=== PATIENT | female | born 2000 ===

== ENCOUNTER 2022-12-11 06:19 | Emergency (ER) | payer OTHER, SELFPAY ==
[2022-12-11 06:26] VITALS: BP 124/86; PULSE 84; RESP 20; TEMP 36.6; O2SAT 97; BMI 43.5
[2022-12-11 07:14] VITALS: BP 125/58; PULSE 68; RESP 16; TEMP 36.9; O2SAT 94
--- NOTE | 2022-12-11 07:47 | ED.GENADULT ---
[facility] - General Adult General Chief complaint: Allergic Reaction Stated complaint: allergic reaction, swollen extremity Time Seen by Provider: 12/11/22 07:17 Source: patient and family (Sister) Mode of arrival: ambulatory History of Present Illness [facility] narrative: 22-year-old female comes in after changing her [place] litter this morning and complains of weird sensation to her lips but denies any difficulty breathing, also points to her left pinky fingers stating that it feels bigger than usual and tingly. She denies it having seen any rash and did not take any Benadryl at home. Related Data Allergies Allergy/AdvReac Type Severity Reaction Status Date / Time No Known Allergies Allergy Verified 12/11/22 06:30 Review of Systems Review of Systems: Pertinent positives and negatives as stated in [facility] Past Medical History Source: nursing notes reviewed Social History Social History Advance Directives: No Physical Exam ED Vital Signs: Vital Signs - 24 hr 12/11/22 06:26 12/11/22 07:14 Temperature 97.8 F 98.5 F Pulse Rate 84 68 Respiratory Rate 20 16 Blood Pressure 124/86 125/58 L Pulse Oximetry 97 94 Oxygen Delivery Method Room Air Room Air BMI result Body Mass Index 43.5 VITAL SIGNS: Reviewed. GENERAL: Well developed, well nourished, in no acute distress. HEAD: Normocephalic/atraumatic EYES: PERRLA, EOMI EARS: Ext canals without abnormality, TMs non-bulging and non-erythematous NOSE: Nares patent bilateral OROPHARYNX: no oral lesions noted, posterior pharynx clear and non-erythematous without noted tonsillar enlargement/erythema/exudates, there is no posterior pharynx/tongue/lips/facial swelling noted NECK: Supple, no adenopathy LUNGS: Normal breath sounds, there is no wheeze/rhonchi/rales/tachypnea. SpO2<94> CARDIOVASCULAR: Regular rate and rhythm without noted murmurs ABDOMEN: Soft, non-tender, non-distended with bowel sounds. MUSCULOSKELETAL: No tenderness, deformities, or effusions noted on gross inspection. EXTREMITIES: No cyanosis, clubbing or edema; LEFT HAND: I see no discoloration of the pinky finger to suggest a Raynaud's or some other alternative etiology for patient's complaints, there is full range of motion, palpable radial/ulnar pulses, capillary refill less than 3 seconds with good strength SKIN: Inspection of the skin reveals no rashes NEUROLOGIC: Alert and oriented x 4. Strength and sensation to light touch were grossly intact x 4. Medications Administered Discontinued Medications Generic Name Dose Route Start Last Admin Trade Name Kayodeq PRN Reason Stop Dose Admin Diphenhydramine HCl 25 mg 12/11/22 07:46 12/11/22 08:14 Diphenhydramine Hcl 25 Mg Capsule PO 12/11/22 07:47 25 mg ONCE ONE Administration Medical Decision Making Medical Decision Making MDM Narrative: 22-year-old female without evidence to suggest radicular or neuropathic etiology and no initial evaluation demonstrates vascular etiology. I see no evidence of angioedema or anaphylaxis, however given patient's symptoms will provide 25 mg of Benadryl as I do think she may have had a mild contact reaction to the john litter and she was counseled to wear a mask in use gloves while changing her john litter. She is otherwise discharged home in stable condition. Differential Diagnosis Differential Diagnoses: The differential diagnosis associated with the presentation includes See the discussion above Lab Data MDM Lab Attestation statement: I reviewed the patient's lab results. See the discussion above Labs: Lab Results 12/11/22 Range/Units 07:49 Urine Color Yellow Urine Appearance Clear Urine pH 5.5 (5.0-9.0) Ur Specific [place] >= 1.030 H (1.005-1.025) Urine Protein Negative (Neg-Trace) mg/dL Urine Glucose (UA) Negative (Negative) mg/dL Urine Ketones Negative (Negative) mg/dL Urine Blood Negative (Negative) Urine Nitrite Negative (Negative) Ur Leukocyte Esterase Negative (Negative) Discharge Plan Discharge Clinical Impression: Contact dermatitis Patient Disposition: Home, Self-Care Instructions: Contact Dermatitis (ED) Additional Instructions: 1. I recommend that you use a mask and gloves when changing the cat litter. 2. Purchase [id number] generic Benadryl in case you have a similar reaction. If you have any difficulty breathing or notice obvious lip swelling/tongue swelling please do not hesitate to come into the emergency room. 3. Please follow-up with primary care provider by calling the office today and setting up an appointment for re-evaluation further outpatient management. Return to the ER for any worsening symptoms.
[2022-12-11 07:56] LABS: Appearance Urine Clear; Color Urine Yellow; Glucose Urine UA Negative (Negative); Leukocyte Esterase Urine Negative (Negative); Nitrite Urine Negative (Negative); PH 5.5 (5.0-9.0); Specific Gravity - Urine >= 1.030 (1.005-1.025); Urine Blood Negative (Negative); Urine Ketones Negative (Negative); Urine Protein Negative (Neg-Trace)
[2022-12-11] MEDS: diphenhydrAMINE HCL 25 MG CAPSULE PO (08:14)
== END 2022-12-11 08:30 | disposition home or self-care (01) ==
PROVIDERS: Emergency Provider Student in an Organized Health Care Education/Training Program
DX: L25.9 Unspecified contact dermatitis, unspecified cause (principal)
CPT/HCPCS: 81003; 99283

== ENCOUNTER 2023-01-20 11:15 | Emergency (ER) | payer OTHER, SELFPAY ==
--- NOTE | ~2023-01-20 | US_ITS ---
EXAMINATION: US VENOUS ULTRASOUND WITH DOPPLER LOWER EXTREMITY, RIGHT CLINICAL INFORMATION: Pain COMPARISON: None TECHNIQUE: Ultrasound of the deep veins is performed from the hip to the calf with compression sonography and color and pulse Doppler assessment. Spectral analysis with color-flow imaging is performed. FINDINGS: There is normal venous compression and respiratory variation and augmented flow. The visualized common femoral vein, superficial femoral vein, profunda femoral vein, popliteal vein, and the trifurcation region shows no evidence of deep venous thrombosis. There is no significant popliteal fossa cyst. If the patient's symptoms persist, followup ultrasound in 5 days 7 days might be of value to exclude proximal propagation from a non-visualized calf vein. US/US venous duplex LE RT IMPRESSION: No DVT demonstrated in the right lower extremity.
[2023-01-20 11:25] VITALS: BP 116/47; PULSE 102; RESP 18; TEMP 37.2; O2SAT 96; BMI 44.9
--- NOTE | 2023-01-20 11:25 | ED.ABDPAIN ---
HPI - Abdominal Pain General Chief Complaint: Abdominal Pain Stated Complaint: Abd pain rad to back Time Seen by Provider: 01/20/23 13:00 Source: patient Mode of arrival: ambulatory History of Present Illness HPI narrative: 22-year-old female with no significant past medical history presenting to the ED complaining of lower abdominal, low back, behind right knee pain x a few weeks. Reports recently started working out, unsure if related to symptoms. Denies known injury, trauma, fall, SOB/CP, fever/chills, nausea, vomiting, diarrhea, dysuria/hematuria, urinary incontinence/retention, vaginal bleeding/discharge. Denies recent travel, hx clots, OCPs, cigarettes smoking MD elicited complaint: abdominal pain Onset (ago): week(s) Related Data Allergies Allergy/AdvReac Type Severity Reaction Status Date / Time No Known Allergies Allergy Verified 12/11/22 06:30 Review of Systems Review of Systems Constitutional: No Fever, No Chills, No Fatigue, No Malaise ENT/Mouth: No Ear Pain, No Nasal Congestion, No sore throat, No Rhinorrhea, No Swallowing Difficulty Eyes: No Eye Pain, No Swelling, No Redness, No Vision Changes Cardiovascular: No Chest Pain, No SOB, No Edema, No Palpitations Respiratory: No Cough, No Sputum, No Dyspnea Gastrointestinal: No Nausea, No Vomiting, No Diarrhea, No Constipation, + Abdominal pain Genitourinary: No irregular bleeding, No Dysuria, No Urinary Frequency, No Hematuria, No Urinary Incontinence/retention, No Flank Pain Musculoskeletal: + joint pain, No Myalgias, No Joint Swelling Skin: No Skin Lesions, No rash Neuro: No Weakness, No Numbness, No Dizziness, No Headache Yes all other systems are reviewed and are negative Constitutional: Reports as per HPI [facility] Past Medical History Attestation statement: The following information was validated with the patient. Social History Social History Alcohol intake: never Smoked in Last 30 Days: No Use of substances other than those prescribed or required for medical reasons: No Advance Directives: No Advance Directives Information Provided: Yes Patient : No Physical Exam ED Vital Signs: Vital Signs - 24 hr 01/20/23 11:25 01/20/23 12:49 01/20/23 14:24 Temperature 99.0 F 98.7 F 98.9 F Pulse Rate 102 H 94 80 Respiratory Rate 18 18 18 Blood Pressure 116/47 L 120/71 119/70 Pulse Oximetry 96 96 98 Oxygen Delivery Method Room Air Room Air Room Air BMI result Body Mass Index 44.9 Const General: cooperative, healthy appearing and no acute distress Orientation/consciousness: patient oriented x3 Limitations: no limitations HENMT Head: Yes normal to inspection and Yes atraumatic Ears: hearing grossly normal bilaterally General nose exam: Normal external nose present Face and sinus: Yes normal facial exam Eyes General: appearance normal, both eyes and all related structures EOM: EOMs intact bilaterally Neck Neck: Yes normal visual inspection and Yes no meningeal signs Resp Effort & Inspection: normal respiratory effort and no respiratory distress Auscultation: clear to auscultation bilaterally Cardio Rate: regular rate Heart sounds: S1 normal heart sound present and S2 normal heart sound present GI Inspection: Yes normal to inspection Palpation (GI): Soft to palpation, nontender, no guarding and not rigid General: Yes no CVA tenderness Back/Spine/Pelvis Other: No midline thoracic/lumbar spinous tenderness/step-off or deformity Back: no CVA tenderness Skin Rashes: no rashes Wounds: no wounds Neuro General: patient oriented x3, tone normal and no meningeal signs Gait exam (Neuro): Normal gait present Extrem Other: No appreciable pedal edema. Mild tenderness behind right knee. No calf tenderness. NV intact distally. Hip ROM intact General: Yes normal to inspection Course Course Course Narrative: -1432--labs unremarkable. CPK 177. -UA not infected 1524--US venous duplex LE RT IMPRESSION: No DVT demonstrated in the right lower extremity. > on re-evaluation patient reports symptomatic improvement. Suspect muscle strain. Results discussed. Recommended close PCP follow-up Results discussed with patient including worrisome signs and symptoms and strict return precautions, and when to return to the emergency department. They verbalized understanding and feel safe for discharge at this time. Medical Decision Making Medical Decision Making MDM Narrative: 22-year-old female with no significant past medical history presenting to the ED complaining of lower abdominal, low back, behind right knee pain x a few weeks. On exam vital signs stable, NAD, nontoxic appearing, abdomen soft/nontender, no CVA tenderness, mild right posterior knee tenderness, no appreciable pedal edema/calf tenderness. Concern for abdominal strain vs MSK pain vs rhabdo vs ?DVT. Lower suspicion for renal stone/pyelo without tenderness on exam. Lower suspicion for ovarian torsion, TOA, cyst, appendicitis/diverticulitis or PE/ACS or fx Plan: Labs, UA, venous duplex ultrasound, re-evaluate Please refer to course for remaining clinical decision making, interpretation of labs/imaging results, and discussions with consultants and/or family members. Differential Diagnosis Differential Diagnoses: The differential diagnosis associated with the presentation includes as above Lab Data MDM Lab Attestation statement: I reviewed the patient's lab results. 01/20/23 11:54 01/20/23 11:54 Labs: Lab Results 01/20/23 01/20/23 01/20/23 Range/Units 11:54 11:54 11:54 WBC 10.1 (4.8-10.8) X10*3/uL RBC 4.73 (4.20-5.50) X10*6/uL Hgb 12.7 (12.0-16.0) g/dl Hct 39.6 (37.0-47.0) % MCV 83.7 (80.0-98.0) fL MCH 26.8 L (27.0-33.0) pg MCHC 32.1 (31.0-35.0) g/dl RDW 13.9 (11.0-16.0) % Plt Count 274 (160-400) X10*3/uL MPV 11.5 (9.4-12.3) fL Immature Gran % (Auto) 0.2 (0.0-0.4) % Neut % (Auto) 64.1 (45-73) % Lymph % (Auto) 27.9 (20-40) % [place] % (Auto) 5.9 (2-11) % Eos % (Auto) 1.6 (0-4) % Baso % (Auto) 0.3 (0-2) % Lymph # (Auto) 2.8 (1.2-4.9) X10*3/uL [place] # (Auto) 0.6 (0.1-1.2) X10*3/uL Eos # (Auto) 0.2 (0.0-0.4) X10*3/uL Baso # (Auto) 0.0 (0.0-0.2) X10*3/uL Abs Immat Gran (auto) 0.02 (0.00-0.03) X10*3/uL Absolute Neuts (auto) 6.5 (2.0-8.3) x10*3/uL Absolute Nucleated RBC 0.000 (0.0-0.012) X10*3/uL Nucleated RBC % (auto) 0.0 (0.0-0.2) /100WBC Sodium 141 (135-145) mmol/L Potassium 4.1 (3.3-5.1) mmol/L Chloride 108 (96-108) mmol/L Carbon Dioxide 26 (22-29) mmol/L Anion Gap 11 L (12-20) BUN 11 (9-16) mg/dL Creatinine 0.75 (0.5-1.4) mg/dL Estim Creat Clear Calc 157.3 Estimated GFR > 60 Random Glucose 103 (60-115) mg/dL Calcium 9.0 (8.4-10.2) mg/dL Magnesium 1.7 (1.6-2.6) mg/dL Total Bilirubin 0.2 (0.0-1.0) mg/dL Direct Bilirubin < 0.2 (0.0-0.5) mg/dL AST 15 (5-31) U/L ALT 14 (0-31) U/L Alkaline Phosphatase 76 (39-117) U/L Total Creatine Kinase 177 H (26-140) U/L Total Protein 6.4 L (6.5-8.0) g/dL Albumin 3.7 (3.5-5.0) g/dL Lipase 24 (8-78) U/L Urine Color Yellow Urine Appearance Clear Urine pH 6.0 (5.0-9.0) Ur Specific [place] 1.020 (1.005-1.025) Urine Protein Negative (Neg-Trace) mg/dL Urine Glucose (UA) Negative (Negative) mg/dL Urine Ketones Negative (Negative) mg/dL Urine Blood Negative (Negative) Urine Nitrite Negative (Negative) Ur Leukocyte Esterase Trace H (Negative) Urine RBC 0-2 (0-2) /HPF Urine WBC 0-5 (0-5) /HPF Ur Squamous Epith Cells 0-2 (0-2) /HPF Urine Bacteria None Seen (None Seen) Hyaline Casts 0-2 (0-2) /LPF Urine Test (NEGATIVE) 01/20/23 Range/Units 11:54 WBC (4.8-10.8) X10*3/uL RBC (4.20-5.50) X10*6/uL Hgb (12.0-16.0) g/dl Hct (37.0-47.0) % MCV (80.0-98.0) fL MCH (27.0-33.0) pg MCHC (31.0-35.0) g/dl RDW (11.0-16.0) % Plt Count (160-400) X10*3/uL MPV (9.4-12.3) fL Immature Gran % (Auto) (0.0-0.4) % Neut % (Auto) (45-73) % Lymph % (Auto) (20-40) % [place] % (Auto) (2-11) % Eos % (Auto) (0-4) % Baso % (Auto) (0-2) % Lymph # (Auto) (1.2-4.9) X10*3/uL [place] # (Auto) (0.1-1.2) X10*3/uL Eos # (Auto) (0.0-0.4) X10*3/uL Baso # (Auto) (0.0-0.2) X10*3/uL Abs Immat Gran (auto) (0.00-0.03) X10*3/uL Absolute Neuts (auto) (2.0-8.3) x10*3/uL Absolute Nucleated RBC (0.0-0.012) X10*3/uL Nucleated RBC % (auto) (0.0-0.2) /100WBC Sodium (135-145) mmol/L Potassium (3.3-5.1) mmol/L Chloride (96-108) mmol/L Carbon Dioxide (22-29) mmol/L Anion Gap (12-20) BUN (9-16) mg/dL Creatinine (0.5-1.4) mg/dL Estim Creat Clear Calc Estimated GFR Random Glucose (60-115) mg/dL Calcium (8.4-10.2) mg/dL Magnesium (1.6-2.6) mg/dL Total Bilirubin (0.0-1.0) mg/dL Direct Bilirubin (0.0-0.5) mg/dL AST (5-31) U/L ALT (0-31) U/L Alkaline Phosphatase (39-117) U/L Total Creatine Kinase (26-140) U/L Total Protein (6.5-8.0) g/dL Albumin (3.5-5.0) g/dL Lipase (8-78) U/L Urine Color Urine Appearance Urine pH (5.0-9.0) Ur Specific [place] (1.005-1.025) Urine Protein (Neg-Trace) mg/dL Urine Glucose (UA) (Negative) mg/dL Urine Ketones (Negative) mg/dL Urine Blood (Negative) Urine Nitrite (Negative) Ur Leukocyte Esterase (Negative) Urine RBC (0-2) /HPF Urine WBC (0-5) /HPF Ur Squamous Epith Cells (0-2) /HPF Urine Bacteria (None Seen) Hyaline Casts (0-2) /LPF Urine Test NEGATIVE (NEGATIVE) Radiology Impression Discussion of test interpretation with radiology: I have reviewed the radiologist's reading. Discharge Plan Discharge Clinical Impression: Abdominal pain, Posterior knee pain Patient Disposition: Home, Self-Care Instructions: Abdominal Pain (ED), Knee Pain (ED) Additional Instructions: you likely strained your abdominal/back muscles. Your blood work, urine, and ultrasound were reassuring Avoid heavy lifting. Take Tylenol and Motrin for pain/inflammation. Apply heat and ice Follow-up with her doctor If symptoms persist or worsen return to the emergency department Referrals: Physician,Yeni J [Primary Care Provider] -
[2023-01-20 11:59] LABS: MANUAL DIFF FLAG NO
[2023-01-20 12:09] LABS: Basophils Percent Auto 0.3 % (0-2); Eosinophils Absolute Auto 0.2 X10*3/uL (0.0-0.4); Eosinophils Percent Auto 1.6 % (0-4); Hematocrit 39.6 % (37.0-47.0); Hemoglobin 12.7 g/dl (12.0-16.0); Imm Gran Abs Auto 0.02 X10*3/uL (0.00-0.03); Imm Gran Pct Auto 0.2 % (0.0-0.4); Lymphocytes Absolute Auto 2.8 X10*3/uL (1.2-4.9); Lymphocytes Percent Auto 27.9 % (20-40); Mean Corpuscular HGB Conc 32.1 g/dl (31.0-35.0); Mean Corpuscular Hemoglobin 26.8 pg (27.0-33.0); Mean Corpuscular Volume 83.7 fL (80.0-98.0); Mean Platelet Volume 11.5 fL (9.4-12.3); Monocytes Absolute Auto 0.6 X10*3/uL (0.1-1.2); Monocytes Percent Auto 5.9 % (2-11); Neutrophils Absolute Auto 6.5 x10*3/uL (2.0-8.3); Neutrophils Percent Auto 64.1 % (45-73); Platelet Count 274 X10*3/uL (160-400); Red Blood Count 4.73 X10*6/uL (4.20-5.50); Red Cell Distribution Width 13.9 % (11.0-16.0); White Blood Count 10.1 X10*3/uL (4.8-10.8)
[2023-01-20 12:12] LABS: UPreg QC Valid YES; Urine Pregnancy NEGATIVE (NEGATIVE)
[2023-01-20 12:13] LABS: Appearance Urine Clear; Color Urine Yellow; Glucose Urine UA Negative (Negative); Leukocyte Esterase Urine Trace (Negative); Nitrite Urine Negative (Negative); UMIC TRIGGER UACC YES; Urine Blood Negative (Negative); Urine Ketones Negative (Negative); Urine Protein Negative (Neg-Trace)
[2023-01-20 12:16] LABS: Bacteria Urine None Seen (None Seen); Hyaline Casts Urine 0-2 /LPF (0-2); RBC Urine 0-2 /HPF (0-2); Squamous Epithelial Cell Urine 0-2 /HPF (0-2); WBC Urine 0-5 /HPF (0-5)
[2023-01-20 12:19] LABS: Alanine Aminotransferase 14 U/L (0-31); Albumin Level 3.7 g/dL (3.5-5.0); Alkaline Phosphatase 76 U/L (39-117); Anion Gap 11 (12-20); Aspartate Amino Transferase 15 U/L (5-31); Bilirubin Direct < 0.2 mg/dL (0.0-0.5); Bilirubin Total 0.2 mg/dL (0.0-1.0); Blood Urea Nitrogen 11 mg/dL (9-16); Carbon Dioxide 26 mmol/L (22-29); Chloride 108 mmol/L (96-108); Creatinine Clr Calc Pharmacy 157.3; Estimated Glomerular Filt Rate > 60; Glucose Random 103 mg/dL (60-115); Lipase 24 U/L (8-78); Magnesium 1.7 mg/dL (1.6-2.6); Potassium 4.1 mmol/L (3.3-5.1); Sodium 141 mmol/L (135-145); Total Protein 6.4 g/dL (6.5-8.0)
[2023-01-20 12:49] VITALS: BP 120/71; PULSE 94; RESP 18; TEMP 37.1; O2SAT 96
--- NOTE | 2023-01-20 13:50 | PC.NURSE ---
bedside ultrasound is being done.
[2023-01-20 14:24] VITALS: BP 119/70; PULSE 80; RESP 18; TEMP 37.2; O2SAT 98
== END 2023-01-20 15:50 | disposition home or self-care (01) ==
PROVIDERS: Physician Assistant; Emergency Provider Emergency Medicine
DX: R10.30 Lower abdominal pain, unspecified (principal); M79.661 Pain in right lower leg; E66.9 Obesity, unspecified; Z68.41 Body mass index [BMI] 40.0-44.9, adult
CPT/HCPCS: 36415; 80048; 80076; 81001; 81003; 81025; 82550; 83690; 83735; 85025; 93971; 99284

== ENCOUNTER → 2023-02-19 13:27 | Outpatient (BNVA) | payer OTHER, SELFPAY | PROVIDERS: Visit Provider Physician Assistant ==

== ENCOUNTER → 2023-03-13 15:43 | Outpatient (BNVA) | payer OTHER, SELFPAY | PROVIDERS: Visit Provider Physician Assistant Surgical | DX: F84.0 Autistic disorder (principal); E66.9 Obesity, unspecified; Z68.41 Body mass index [BMI] 40.0-44.9, adult; F41.9 Anxiety disorder, unspecified; F32.A Depression, unspecified | CPT/HCPCS: 99202 ==

== ENCOUNTER 2023-03-23 07:22 | Emergency (ER) | payer OTHER, SELFPAY ==
--- NOTE | 2023-03-23 07:32 | ED_ITS ---
HPI - URI/Sore Throat General Chief Complaint: Upper Respiratory Symptoms Stated Complaint: sore throat and back pain Time Seen by Provider: 03/23/23 07:30 Source: patient Mode of arrival: ambulatory Limitations: no limitations History of Present Illness HPI Narrative: 23 yo female with history of depression/anxiety, autism who presents to the ER for evaluation of a sore throat and body aches. She presents with her brother and mother who both have similar symptoms. She states her sore throat is worse with eating but she is able to eat and drink normally. She states she has some upset stomach but no abdominal pain, nausea, vomiting or diarrhea. No chest pain or trouble breathing. No fevers. MD elicited complaint: sore throat and other (back pain) Onset (ago): day(s) Consistency: progressively worsening Severity: moderate Description of mucous: clear Able to tolerate fluids by mouth: Yes Exacerbating factors: swallowing Relieving factors: nothing Context: sick contacts Associated symptoms: myalgias, headache, nasal congestion and sore throat Treatments prior to arrival: none Related Data Home Medications Medication Instructions Recorded Confirmed No Known Home Meds 02/19/23 03/13/23 Allergies Allergy/AdvReac Type Severity Reaction Status Date / Time No Known Allergies Allergy Verified 03/13/23 15:52 Review of Systems Review of Systems: Yes all other systems are reviewed and are negative [facility] Past Medical History Medical History Anxiety Depression Mental and behavioral problem Obesity Vaginal odor Surgical History Hx of oral surgery Family History Family History Father No problems noted. Mother No problems noted. Social History Social History Housing: Apartment Alcohol intake: never Patient Tobacco Use Status: Never used Tobacco e-Cigarette/Vaping Use: Never Used Advance Directives: No Advance Directives Information Provided: Yes Physical Exam Vital Signs: Vital Signs: Last Vital Signs Temp 97.9 F 03/23/23 08:03 Pulse 102 H 03/23/23 08:03 Resp 20 03/23/23 08:03 BP 143/68 H 03/23/23 08:03 Pulse Ox 96 03/23/23 08:03 O2 Del Method Room Air 03/23/23 08:03 BMI result Body Mass Index 37.8 Appearance: Alert. Oriented X3. No acute distress. Head: normocephalic, atraumatic. Eyes: Pupils equal, round and reactive to light. ENT: Pharynx normal. +tonsillomegaly with erythema, no exudates. uvula midline. handling secretions normally. Neck: Normal inspection. Neck supple. CVS: Normal heart rate and rhythm. Pulses normal. Respiratory: No respiratory distress. Breath sounds normal. Abdomen: Obese, Soft and nontender. +BS x4 Skin: Skin warm and dry. Normal skin color. Normal skin turgor. No rashes. Extremities: No lower extremity edema. No joint swelling. Neuro/psych: Oriented X 3. nonfocal. CN II-XII intact. Normal speech and cognition. Medical Decision Making Medical Decision Making [facility] Narrative: 23 yo female with history of autism, anxiety/depression who presents to the ER for evaluation of sore throat and body aches - family members with similar symptoms. Slightly tachycardic on arrival but no fevers, likely due to some pain. Strep and COVID swabs were sent. Patient is negative for strep throat and COVID. Her had similar symptoms last week. Clinical presentation most consistent with viral infection, no need for abx at this time. Discussed results, dx and management as well as return precautions. Stable for d/c home. Differential Diagnosis Differential Diagnoses: The differential diagnosis associated with the presentation includes strep, covid, flu, rsv, other viral syndrome, bronchitis, pneumonia, no evidence of peritonsillar abcsess or retropharyngeal abscess Lab Data [facility] Lab Attestation statement: I reviewed the patient's lab results. Labs: Lab Results 03/23/23 03/23/23 Range/Units 07:57 07:57 COVID-19 (SON[place]) Negative (Negative) COVID-19 Clin Com See Note S. pyogenes GrpA CANDICE Negative (Negative) Independent Historian Clinical information obtained from an independent historian. History obtained from or confirmed by: Parent External Record Review External record reviewed: Prior outpatient labs and Prior outpatient radiology Prescription Management I considered prescription management with: Pain Medication and Antibiotic Critical Care Time Critical Care Time Critical Care Time: No Discharge Plan Discharge Clinical Impression: Viral infection Patient Disposition: Home, Self-Care Instructions: Viral Syndrome (ED) Additional Instructions: You tested negative for COVID-19 and Strep throat. Your symptoms are most likely due to another viral illness. Treatment is rest and supportive care. Drink plenty of fluids. Take over the counter cold and flu medications as needed for your symptoms. Use warm salt water gargles 3 times per day to help your sore throat. Recommend over the counter Chloraseptic spray and Cepacol lozenges for sore throat. Follow up with your doctor as needed. If you develop new or worsening symptoms call 911 or come back to the ER for further evaluation. Prescriptions: No Action No Known Home Meds
[2023-03-23 08:03] VITALS: BP 143/68; PULSE 102; RESP 20; TEMP 36.6; O2SAT 96; BMI 37.8
[2023-03-23 08:35] LABS: COVID-19 Test Negative (Negative); IDNOW Serial# 9DB6401D
[2023-03-23 08:48] LABS: IDNOW Serial# 08D9AD1C
[2023-03-23 08:49] LABS: Strep A Nucleic Acid Negative (Negative)
== END 2023-03-23 09:15 | disposition home or self-care (01) ==
PROVIDERS: Physician Assistant; Emergency Provider Emergency Medicine
DX: B34.9 Viral infection, unspecified (principal); J02.9 Acute pharyngitis, unspecified; Z20.822 Contact with and (suspected) exposure to COVID-19
CPT/HCPCS: 87635; 87651; 99282; 99283

== ENCOUNTER 2023-04-16 09:04 | Outpatient (REF) | payer OTHER, SELFPAY ==
[2023-04-16 15:53] LABS: CT PCR NOT DETECTED (Not Detect.); NG PCR NOT DETECTED (Not Detect.)
[2023-04-17 11:40] LABS: BV Int Neg Control Negative (Negative); BV Int Pos Control Positive (Positive)
== END 2023-04-16 09:05 | disposition home or self-care (01) ==
LOC: HO.LNP 09:04
PROVIDERS: PCP Nurse Practitioner Family; Visit Provider Advanced Practice Midwife
DX: Z01.419 Encounter for gynecological examination (general) (routine) without abnormal findings (principal); E28.2 Polycystic ovarian syndrome; E66.01 Morbid (severe) obesity due to excess calories; F48.9 Nonpsychotic mental disorder, unspecified; F69 Unspecified disorder of adult personality and behavior; L68.0 Hirsutism; L70.9 Acne, unspecified; N92.6 Irregular menstruation, unspecified; N39.0 Urinary tract infection, site not specified
CPT/HCPCS: 0353U; 87480; 87510; 87660

== ENCOUNTER 2023-04-28 16:18 | Outpatient (REF) | payer OTHER, SELFPAY ==
--- NOTE | ~2023-04-28 | US_ITS ---
EXAMINATION: US PELVIS COMPLETE CLINICAL INFORMATION: Additional Notes/Special Instructions Patient was not able to allow a pelvic exam; history in symptoms consistent with PCOS : COMPARISON: None TECHNIQUE: Transabdominal and transvaginal imaging was performed. FINDINGS: The uterus is of normal size and echogenicity measuring 7.3 x 3.3 x 3.9 cm. A regular homogeneous endometrium is identified measuring 0.4 cm. No uterine mass. No transabdominal only views of the ovaries. The right measures 2.9 x 2.3 x 2.5 cm for a volume of 9.4 mL. The left measures 3.3 x 3.1 x 1.0 cm for a volume of 10.3 mL, and is mildly enlarged however this was obtained transabdominally. Ovaries are normal in echotexture and do not demonstrate greater than 20 follicles per ovary based on transabdominal views. There is trace simple physiologic volume pelvic free fluid. US/US pelvic and transvaginal IMPRESSION: Technically limited exam and ovaries were only identified transabdominally limiting assessment for polycystic ovarian syndrome. The left ovary measures mildly enlarged at 10.3 mL however given this was obtained on the transabdominal probe and not a high-frequency endovaginal probe this does not meet the strict criteria for size enlargement for polycystic ovarian syndrome. Repeat exam could be considered when patient is better able to tolerate an endovaginal exam.
== END 2023-04-28 16:19 | disposition home or self-care (01) ==
LOC: HO.US 16:18
PROVIDERS: PCP Nurse Practitioner Family; Visit Provider Advanced Practice Midwife
DX: Z00.00 Encounter for general adult medical examination without abnormal findings (principal); N92.6 Irregular menstruation, unspecified; L70.9 Acne, unspecified; L68.0 Hirsutism; E66.01 Morbid (severe) obesity due to excess calories; E28.2 Polycystic ovarian syndrome; F48.9 Nonpsychotic mental disorder, unspecified; F69 Unspecified disorder of adult personality and behavior
CPT/HCPCS: 76830; 76856

== ENCOUNTER 2023-05-18 11:42 | Emergency (ER) | payer OTHER, SELFPAY ==
--- NOTE | ~2023-05-18 | XR_ITS ---
EXAMINATION: XR ANKLE, LEFT CLINICAL INFORMATION: Fall, pain COMPARISON: None available. TECHNIQUE: 4 views of the left ankle. FINDINGS: There is a linear lucency at the plantar aspect of the proximal cuboid, as seen on one view. This may be related to overlapping densities, versus a subtle undisplaced fracture. The remainder of the bones and joint spaces appear unremarkable. Ankle mortise is maintained. Fifth metatarsal base is intact. Anterior calcaneal process is intact. XR/XR ankle LT min 3V IMPRESSION: Lucency in the plantar aspect of the proximal cuboid, only visualized on one view. This could be related to overlapping densities versus a subtle undisplaced fracture. Clinically correlate for focal symptoms. Follow-up/further imaging as clinically warranted. No additional acute fractures identified.
[2023-05-18 12:05] VITALS: BP 126/80; PULSE 85; O2SAT 98
[2023-05-18 12:32] VITALS: BP 109/63; PULSE 91; RESP 18; TEMP 36.8; O2SAT 97; BMI 42.3
--- NOTE | 2023-05-18 12:34 | ED.GENADULT ---
HPI - General Adult General Chief complaint: Extremity Injury, Lower Stated complaint: ANKLE PAIN INJURY STATUS POST FALL Time Seen by Provider: 05/18/23 13:15 Source: patient Mode of arrival: wheelchair Limitations: no limitations History of Present Illness HPI narrative: Patient is a 23 year old female with history of anxiety, depression presenting with left ankle pain after twisting it and falling while taking out the trash today. She states that her ankle twisted inwards and that she felt a crack when it happened. She denies headstrike or loss of consciousness from the fall. She reports that her pain is a 10/10 when she moves her ankle and a 4/10 at rest. She also reports that she has twisted her left ankle several times before. She denies additional symptoms at this time including fever, chills, chest pain, abdominal pain, nausea, vomiting, shortness of breath, numbness, tingling, headache. Related Data Previous Rx's Medication Instructions Recorded ketorolac 10 mg tablet 10 mg PO TID PRN pain 5 days #15 05/18/23 tabs Allergies Allergy/AdvReac Type Severity Reaction Status Date / Time No Known Allergies Allergy Verified 05/18/23 12:37 Review of Systems Review of Systems: Constitutional : No Weight loss, No Fever, No Chills, No Fatigue, No Malaise Cardiovascular : No Chest Pain, No SOB, No Dyspnea on Exertion, No Orthopnea, No Edema, No Palpitations Respiratory : No Cough, No Sputum, No Wheezing Gastrointestinal : No Nausea, No Vomiting, No Diarrhea, No Constipation, No abdominal Pain, No Hematochezia, No Melena Genitourinary : No Dysuria, No Urinary Frequency, No Hematuria, Musculoskeletal : + joint pain, + Myalgias, + Joint Swelling Skin : No Skin Lesions, No rash Neuro : No Weakness, No Numbness, No Dizziness, No Headache Psych : No Anxiety/Panic, No Depression All other systems reviewed and are negative Yes all other systems are reviewed and are negative [facility] Past Medical History Attestation statement: The following information was validated with the patient. Source: old records reviewed Medical History Anxiety Depression Mental and behavioral problem Obesity Vaginal odor Surgical History Hx of oral surgery Family History Family History Father No problems noted. Mother No problems noted. Social History Social History Housing: Apartment Alcohol intake: never Patient Tobacco Use Status: Never used Tobacco Smoked in Last 30 Days: No e-Cigarette/Vaping Use: Never Used Use of substances other than those prescribed or required for medical reasons: No Advance Directives: No Advance Directives Information Provided: No service: No Current occupational status: unemployed Current occupational exposures/hazards: No Cognitive needs: No Hearing needs: No Vision needs: Yes (glasses) Physical Exam ED Vital Signs: Vital Signs - 24 hr 05/18/23 12:32 Temperature 98.2 F Pulse Rate 91 Respiratory Rate 18 Blood Pressure 109/63 Pulse Oximetry 97 Oxygen Delivery Method Room Air BMI result Body Mass Index 42.3 vital signs stable Appearance: Alert.? Oriented X3.? No acute distress.? Head: Normocephalic, atraumatic, no step-offs or deformities Eyes: Pupils equal, round and reactive to light.? CVS: Normal heart rate and rhythm.? Pulses normal.? Respiratory: No respiratory distress.? Breath sounds normal.? Abdomen: Soft and nontender.? Skin: Skin warm and dry.? Normal skin color.? Normal skin turgor.? Extremities: Positive edema of left ankle with significant tenderness to palpation of left lateral malleolus. Full range of motion of left ankle, however uncomfortable. Pulses Dorsalis pedis, anterior tibialis, posterior tibialis 2+ and symmetric of lower extremities bilaterally. No lower extremity edema.? No calf ttp. 5/5 strength to bilateral upper and lower extremities. Sensation of left foot intact. Neuro: Oriented X 3.? No motor deficit.? No sensory deficit. CN 2-12 intact Course Course Course Narrative: RME- 23-year-old female presents for evaluation of left ankle pain after a fall while ?taking out the trash. ? Reports that she is unable to bear weight on the left side. Reevaluation(s) Reevaluation #1: XR of left ankle demonstrating Will give toradol for pain. Time: 13:41 Reevaluation #2: X-ray of ankle with lucency in the plantar aspect of the proximal cuboid, only visualized under one view, could relate to overlying densities versus subtle undisplaced fracture patient has tenderness to palpation is mostly on the lateral aspects a low suspicion for undisplaced fracture however place patient in an Aircast, give crutches, will have her follow up with the orthopedic team. No signs of neurovascular compromise or threatened limb. Educated on RICE discharge home on Toradol. Educated patient on diagnosis and treatment plan, answered all question, patient verbalizes understanding. At this time patient will be discharged home, advised to return with new or worsening symptoms. Educated on worrisome signs and symptoms and when to return. At this time I feel comfortable discharge home. Time: 14:48 Medications Administered Discontinued Medications Generic Name Dose Route Start Last Admin Trade Name Freq PRN Reason Stop Dose Admin Ketorolac Tromethamine 30 mg 05/18/23 13:20 05/18/23 13:28 Ketorolac Tromethamine 15 Mg/Ml Vial IM 05/18/23 13:21 30 mg ONCE ONE Administration Medical Decision Making Medical Decision Making [facility] Narrative: [id number] Patient is a 23 year old female presenting with left ankle pain after twisting it and falling today. Physical exam significant for edema of left ankle with significant tenderness to palpation of left lateral malleolus. Full range of motion of left ankle, however uncomfortable. Pulses 2+ and symmetric of lower extremities bilaterally. No lower extremity edema.? No calf ttp. 5/5 strength to bilateral upper and lower extremities. Sensation of left foot intact. Differential diagnosis includes most likely sprain/strain vs fracture. Unlikely osteomyelitis, acute infection. No signs of acute threat to foot or limb,or nerovascular compromise, neurovascular exam intact. Plan imaging Differential Diagnosis Differential Diagnoses: The differential diagnosis associated with the presentation includes Differential diagnosis includes most likely sprain/strain vs fracture. Unlikely osteomyelitis, acute infection. No signs of acute threat to foot or limb, or neurovascular compromise, neurovascular exam intact. Admission/Observation Consideration of admission/observation: Escalation of care including admission/observation considered unlikely Independent Interpretation I performed an independent interpretation of an: Plain X-Ray Radiology Impression Discussion of test interpretation with radiology: I have reviewed the radiologist's reading. Independent Historian Clinical information obtained from an independent historian. History obtained from or confirmed by: Parent External Record Review External record reviewed: Inpatient record, Office record, Outpatient record, Prior outpatient labs, Prior outpatient radiology, Primary care record and Outside ED record Core Measures AMI core measures followed: Yes Measure exclusions: not indicated Critical Care Time Critical Care Time Critical Care Time: Yes Total Critical Care Time: 35 Attestation: I attest to this time spent taking care of the patient, obtaining history, physical, reviewing labs, imaging, speaking to specialist. Discharge Plan Discharge Clinical Impression: Acute ankle pain Patient Disposition: Home, Self-Care Instructions: Ankle Sprain (DC), R.I.C.E. Treatment (ED) Additional Instructions: Take your medications as prescribed. If you were prescribed antibiotics today, it is important that you take your medication to their entirety, do not skip any doses, do not finish them early. Follow-up with your primary care provider this week. Follow-up with the orthopedic team in a week or so Return to the emergency department with new or worsening symptoms. In case of emergency call 911 Toradol has been sent to your pharmacy, you tolerated this well in the department. Please take this as prescribed do not take this with ibuprofen, or other NSAIDs, do not mix this with alcohol. Side effects of this medication including increased risk for bleeding and possible kidney injury. XR/XR ankle LT min 3V IMPRESSION: Lucency in the plantar aspect of the proximal cuboid, only visualized on one view. This could be related to overlapping densities versus a subtle undisplaced fracture. Clinically correlate for focal symptoms. Follow-up/further imaging as clinically warranted. ? No additional acute fractures identified. Prescriptions: New ketorolac 10 mg tablet 10 mg PO TID PRN (Reason: pain) 5 Days Qty: 15 0RF Referrals: [facility] [Provider Group] Stand Alone Forms: Work/School Release
[2023-05-18] MEDS: Ketorolac Tromethamine 15 MG/ML VIAL 30 MG IM (13:28)
== END 2023-05-18 15:48 | disposition home or self-care (01) ==
PROVIDERS: Emergency Provider Student in an Organized Health Care Education/Training Program; PCP Nurse Practitioner Family
DX: M25.572 Pain in left ankle and joints of left foot (principal)
CPT/HCPCS: 73610; 96372; 99284; J1885

== ENCOUNTER → 2023-05-28 14:06 | Outpatient (BNVA) | payer OTHER, SELFPAY | PROVIDERS: PCP Nurse Practitioner Family; Visit Provider Advanced Practice Midwife | DX: N92.6 Irregular menstruation, unspecified (principal); E28.2 Polycystic ovarian syndrome; L70.9 Acne, unspecified; L68.0 Hirsutism; E66.01 Morbid (severe) obesity due to excess calories; F84.0 Autistic disorder; F48.9 Nonpsychotic mental disorder, unspecified; F69 Unspecified disorder of adult personality and behavior; Z68.41 Body mass index [BMI] 40.0-44.9, adult | CPT/HCPCS: 99212 ==

== ENCOUNTER 2023-05-29 07:46 | Outpatient (REF) | payer OTHER, SELFPAY ==
[2023-05-29 09:27] LABS: Estimated Average Glucose 100 mg/dL; Hemoglobin A1c % 5.1 %
[2023-05-29 10:04] LABS: Alanine Aminotransferase 12 U/L (0-31); Albumin Level 3.8 g/dL (3.5-5.0); Alkaline Phosphatase 66 U/L (39-117); Anion Gap 13 (12-20); Aspartate Amino Transferase 11 U/L (5-31); Bilirubin Total 0.5 mg/dL (0.0-1.0); Blood Urea Nitrogen 10 mg/dL (9-16); Calcium 9.4 mg/dL (8.4-10.2); Carbon Dioxide 25 mmol/L (22-29); Chloride 107 mmol/L (96-108); Estimated Glomerular Filt Rate > 60; Glucose Fasting 92 mg/dL (60-99); Potassium 4.1 mmol/L (3.3-5.1); Sodium 141 mmol/L (135-145); Total Protein 7.2 g/dL (6.5-8.0)
[2023-05-29 10:10] LABS: Free T4 (Free Thyroxine) 1.02 ng/dL (0.71-1.85); Thyroid Stimulating Hormone 2.41 uIU/mL (0.32-4.0)
[2023-05-30 16:09] LABS: DHEA Sulfate 354 mcg/dL (14-349)
[2023-06-05 18:37] LABS: Testosterone, Free 9.7 pg/mL (0.1-6.4); Testosterone, Total 86 ng/dL (2-45)
== END 2023-05-29 07:47 | disposition home or self-care (01) ==
LOC: HO.LAB 07:46
PROVIDERS: PCP Nurse Practitioner Family; Visit Provider Advanced Practice Midwife
DX: E28.2 Polycystic ovarian syndrome (principal); E66.01 Morbid (severe) obesity due to excess calories; L68.0 Hirsutism; L70.9 Acne, unspecified; N92.6 Irregular menstruation, unspecified; N39.0 Urinary tract infection, site not specified
CPT/HCPCS: 36415; 80053; 82627; 83036; 84402; 84403; 84439; 84443; 87086

== ENCOUNTER 2023-08-11 11:25 | Outpatient (AMB) | payer OTHER, SELFPAY ==
--- NOTE | 2023-08-11 12:28 | MHC.OFFVIS ---
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 She says that she is starting to get her periods more regularly once a month. She has most of the same issues that have been discussed at the last couple of visits but she did not really want to discuss them in too much detail today except that she does wonder why she keeps getting P infections which is what she was told by the doctors in [place]. She says that sometimes it smells really bad. I reviewed past visits and how she was not able to fully tolerate pelvic exam and so Pap smear was not able to be done and also that full internal evaluation with the pelvic ultrasound was also not able to be completed though the patient perceived that they were able to get the Wand in and had it in for a little while. She has not had sex with anyone . She does feel good that she has lost some weight she appears to have lost about 5 lb since her 1st visit here. She has also gotten her hair cut. She is going to be seeing her primary care provider tomorrow and wants to talk about further mental health evaluations. I did discuss with her that normally evaluations for urinary tract infections which are what P infections are formally called take place in the arena of primary care and I recommend she discuss that more fully with her tomorrow however she has no particular symptoms that she could describe with me today. I did review with her basic anatomy with a plastic model and discussed how it is very easy for there to be urogenital contamination on a urinary specimen and that in order to find out if she really has an infection she would need to accomplish much exhibit cleaner specimen since she has no particular symptoms today that she could describe I am not ordering any but suggested that she follow through with her primary tomorrow. Also discussed how easy it can be to acquire a urinary tract infection friction or other manipulation of urethra. Discussed in particular this visit her symptoms of hirsutism, acne and the other labs that I had done to explore potential diagnosis of PCOS and that all of her hormone levels were elevated including the testosterone free testosterone and DHEA all pointing in the direction of this and consistent with her history. I congratulated her on her efforts to lose weight and get healthier. She was complaining of a be back ache while she was here and I suggest doing some stretches. [facility] Medical History Mental and behavioral problem Vaginal odor Obesity Anxiety Depression Surgical History Hx of oral surgery Family History Father No problems noted. Mother No problems noted. Social History Housing: Apartment Alcohol intake: never Patient Tobacco Use Status: Never used Tobacco e-Cigarette/Vaping Use: Never Used service: No Current occupational status: unemployed Current occupational exposures/hazards: No Cognitive needs: No Hearing needs: No Vision needs: Yes (glasses) Female Reproductive History Menstrual Age of Menarche: 10 Date of last menstrual period: 07/18/23 control method: none Physical Exam Vital Signs: Last Vital Signs BP 112/70 08/11/23 12:29 BMI result Body Mass Index 41.3 Results Reviewed Results Reviewed: Name: Meek Bowers Age/Sex: 23/F : 2000 Unit#: [id number] Attend Dr: Puja Laguerre CNM Re05/29/23 Status: DEP REF Location: .LAB Disch: SPEC : [id number] ROCKY: 05/29/23 STATUS: COMP REQ : [id number] RECD: 05/29/[address]: Puja Laguerre CNM COMP: 06/05/23-1837 ENTERED: 05/29/23-[address]: Sonya Morley ORDERED: DHEAS, Testost Fr & T Test Result Flag Reference Site DHEA-Sulfate 354 H 14-349 mcg/dL QUM THIS TEST WAS PERFORMED AT: [email or web address] [address] [place] [id number] TREVOR ACOSTA MD Testost, Tot 86 H 2-45 ng/dL QUM For additional information, please refer to http://education.[employer].io/faq/ [email or web address] (This link is being provided for informational/ educational purposes only.) This test was developed and its analytical performance characteristics have been determined by [employer] [place], [place]. It has not been cleared or approved by the U.S. Food and Drug Administration. This assay has been validated pursuant to the CLIA regulations and is used for clinical purposes. Testost, Free 9.7 H 0.1-6.4 pg/mL QUM This test was developed and its analytical performance characteristics have been determined by [employer] [place], [place]. It has not been cleared or approved by the U.S. Food and Drug Administration. This assay has been validated pursuant to the CLIA regulations and is used for clinical purposes. THIS TEST WAS PERFORMED AT: [facility] [address] CARY RICHARD MD,PHD [place] [address]Ultrasound Report Signed Patient: Meek BowersMR#: [id number]: 2000Acct:[id number]/Sex: 23 FADM Date: 04/28/23Loc: [place] Dr: Puja Laguerre CNM Ordering Physician: Puja Laguerre CNM Date of Service: 04/28/23 Procedure(s): US pelvic and transvaginal Accession Number(s): [id number] cc: Puja Laguerre CNM~ EXAMINATION: US PELVIS COMPLETE CLINICAL INFORMATION: Additional Notes/Special Instructions Patient was not able to allow a pelvic exam; history in symptoms consistent with PCOS : COMPARISON: None TECHNIQUE: Transabdominal and transvaginal imaging was performed. FINDINGS: The uterus is of normal size and echogenicity measuring 7.3 x 3.3 x 3.9 cm. A regular homogeneous endometrium is identified measuring 0.4 cm. No uterine mass. No transabdominal only views of the ovaries. The right measures 2.9 x 2.3 x 2.5 cm for a volume of 9.4 mL. The left measures 3.3 x 3.1 x 1.0 cm for a volume of 10.3 mL, and is mildly enlarged however this was obtained transabdominally. Ovaries are normal in echotexture and do not demonstrate greater than 20 follicles per ovary based on transabdominal views. There is trace simple physiologic volume pelvic free fluid. US/US pelvic and transvaginal IMPRESSION: Technically limited exam and ovaries were only identified transabdominally limiting assessment for polycystic ovarian syndrome. The left ovary measures mildly enlarged at 10.3 mL however given this was obtained on the transabdominal probe and not a high-frequency endovaginal probe this does not meet the strict criteria for size enlargement for polycystic ovarian syndrome. Repeat exam could be considered when patient is better able to tolerate an endovaginal exam. Dictated By:Lenora Nielson MDSigned By:<Electronically signed by Lenora Nielson MD in OV>04/30/23 1753 DD/ 1656TD/TT: Assessment & Plan Assessment & Plan (1) Irregular menstruation, unspecified: Code(s): N92.6 - Irregular menstruation, unspecified (2) Frequent UTI: Code(s): N39.0 - Urinary tract infection, site not specified (3) Acne: Code(s): L70.9 - Acne, unspecified (4) Hirsutism: Code(s): L68.0 - Hirsutism (5) Obesity, morbid, BMI 40.0-49.9: Code(s): E66.01 - Morbid (severe) obesity due to excess calories (6) PCOS (polycystic ovarian syndrome): Code(s): E28.2 - Polycystic ovarian syndrome Plan Patient is here to review lab results. She says that she is starting to get her periods more regularly once a month. She has most of the same issues that have been discussed at the last couple of visits but she did not really want to discuss them in too much detail today except that she does wonder why she keeps getting P infections which is what she was told by the doctors in [place]. She says that sometimes it smells really bad. I reviewed past visits and how she was not able to fully tolerate pelvic exam and so Pap smear was not able to be done and also that full internal evaluation with the pelvic ultrasound was also not able to be completed though the patient perceived that they were able to get the Wand in and had it in for a little while. She has not had sex with anyone . She does feel good that she has lost some weight she appears to have lost about 5 lb since her 1st visit here. She has also gotten her hair cut. She is going to be seeing her primary care provider tomorrow and wants to talk about further mental health evaluations. I did discuss with her that normally evaluations for urinary tract infections which are what P infections are formally called take place in the arena of primary care and I recommend she discuss that more fully with her tomorrow however she has no particular symptoms that she could describe with me today. I did review with her basic anatomy with a plastic model and discussed how it is very easy for there to be urogenital contamination on a urinary specimen and that in order to find out if she really has an infection she would need to accomplish much exhibit cleaner specimen since she has no particular symptoms today that she could describe I am not ordering any but suggested that she follow through with her primary tomorrow. Also discussed how easy it can be to acquire a urinary tract infection friction or other manipulation of urethra. Discussed in particular this visit her symptoms of hirsutism, acne and the other labs that I had done to explore potential diagnosis of PCOS and that all of her hormone levels were elevated including the testosterone free testosterone and DHEA all pointing in the direction of this and consistent with her history. I congratulated her on her efforts to lose weight and get healthier. She was complaining of a be back ache while she was here and I suggest doing some stretches. Next visit can be whenever she feels ready to allow full pelvic exam and try again for Pap smear which I also explained again to her. Coding Level of Care Code Est Pt Level 3 (69994) Diagnoses Irregular menstruation, unspecified N92.6 Frequent UTI N39.0 Acne L70.9 Hirsutism L68.0 Obesity, morbid, BMI 40.0-49.9 E66.01 PCOS (polycystic ovarian syndrome) E28.2 Time Spent (min) 30 Comment 100% [id number] discussing patient presentation and plan
[2023-08-11 12:29] VITALS: BP 112/70; BMI 41.3
== END 2023-08-11 13:02 | disposition home or self-care (01) ==
LOC: HO.HWS 11:25
PROVIDERS: PCP Nurse Practitioner Family; Visit Provider Advanced Practice Midwife
DX: N92.6 Irregular menstruation, unspecified (principal); N39.0 Urinary tract infection, site not specified; L70.9 Acne, unspecified; L68.0 Hirsutism; E66.01 Morbid (severe) obesity due to excess calories; E28.2 Polycystic ovarian syndrome
CPT/HCPCS: 99213

== ENCOUNTER → 2023-08-11 11:25 | Outpatient (BNVA) | payer OTHER, SELFPAY | PROVIDERS: PCP Nurse Practitioner Family; Visit Provider Advanced Practice Midwife | DX: N92.6 Irregular menstruation, unspecified (principal); N39.0 Urinary tract infection, site not specified; L70.9 Acne, unspecified; L68.0 Hirsutism; E66.01 Morbid (severe) obesity due to excess calories; Z68.41 Body mass index [BMI] 40.0-44.9, adult; E28.2 Polycystic ovarian syndrome | CPT/HCPCS: 99212 ==

== ENCOUNTER 2023-08-12 08:40 | Outpatient (AMB) | payer OTHER, SELFPAY ==
[2023-08-12 08:44] VITALS: BP 118/62; PULSE 80; O2SAT 96; BMI 41.5
--- NOTE | 2023-08-12 08:44 | A.OFFPC_ITS ---
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 Patient presents today for growing mole on face and weight loss. Mole on left side of face by hair line skin color, patient reports increasing in size so much so that her father has noticed it growing, referral entered to [place] [facility] for further evaluation and possible removal. Patient reports that she has been exercising regularly and is 262 and decreased to 257 but states she feels like she is not loosing the weight as quickly as she would like to. Patient provided positive reinforcement and encouraged to continue following healthy lifestyle modifications and exercising to reduce BMI. Patient also advised to follow-up with weight management program for further recommendations. Patient states insomnia x2 months. patient states goes to bed 7pm and 8pm and wont fall asleep 12pm-3am Patient also requesting she has be sent for cognitive evaluation for hx of ADHD and autism, will refer her for an neuropsych evaluation. [facility] Medical History Mental and behavioral problem Vaginal odor Obesity Anxiety Depression Surgical History Hx of oral surgery Family History Father No problems noted. Mother No problems noted. Social History Housing: Apartment Alcohol intake: never Patient Tobacco Use Status: Never used Tobacco e-Cigarette/Vaping Use: Never Used service: No Current occupational status: unemployed Current occupational exposures/hazards: No Cognitive needs: No Hearing needs: No Vision needs: Yes (glasses) Female Reproductive History Menstrual Age of Menarche: 10 Questionnaire PHQ-9 Over the last 2 weeks, how often have you been bothered by any of the following problems? 1. Little interest or pleasure in doing things: more than half the days 2. Feeling down, depressed, or hopeless: more than half the days 3. Trouble falling or staying asleep, or sleeping too much: nearly every day 4. Feeling tired or having little energy: nearly every day 5. Poor appetite or overeating: nearly every day 6. Feeling bad about yourself - or that you are a failure or have let yourself or your family down: nearly every day 7. Trouble concentrating on things, such as reading the newspaper or watching television: nearly every day 8. Moving or speaking so slowly that other people could have noticed. Or the opposite - being so fidgety or restless that you have been moving around a lot more than usual: more than half the days 9. Thoughts that you would be better off or of hurting yourself in some way: not at all Total score: 21 Depression Screening Interpretation: Positive 17547 - PHQ-9 Billing: Yes Source: Developed by Drs. Bernardino Angeles, Naty Augustin, Jarvis Verduzco and colleagues, with an educational susan from [employer]. Thrive Questionnaire Date Thrive assessed: 04/23/23 AUDIT C Alcohol Use Questionnaire (AUDIT-C) 1. How often do you have a drink containing alcohol?: Never 3. How often do you have six or more drinks on one occasion?: Never Total Score: 0 RAYMUNDO-7 AMB Questionnaire RAYMUNDO-7 Date RAYMUNDO - 7 assessed: 04/23/23 Source: Developed by Drs. Bernardino Angeles, Jarvis Aldridge and colleagues, with an educational susan from [employer]. Review of Systems Const Denies chills, Denies fatigue, Denies fever(s) and Denies poor appetite Eyes Denies no additional complaints ENT Reports Normal hearing present Card Denies chest pain, Denies syncope, Denies rapid heart rate and Denies dyspnea Resp Denies cough and Denies dyspnea GI Denies change in stool character, Denies constipation, Denies diarrhea, Denies nausea and Denies vomiting Denies urinary frequency, Denies dysuria and Denies urinary urgency Neuro Reports Normal hearing present, Denies confusion and Denies syncope Psych Denies confusion Endo Denies fatigue Physical exam (Primary Care) Vital Signs: Last Vital Signs Pulse 80 08/12/23 08:44 BP 118/62 08/12/23 08:44 Pulse Ox 96 08/12/23 08:44 Oxygen Delivery Method Room Air 08/12/23 08:44 BMI result Body Mass Index 41.5 Tobacco/Smoking Status: Tobacco use Status Tobacco use date assessed 04/23/23 08/12/23 08:45 Patient Tobacco Use Status Never used Tobacco 08/12/23 08:45 e-Cigarette/Vaping Use Never Used 08/12/23 08:45 PHQ-9: PHQ-9 Score PHQ-9: Total score 21 08/12/23 09:35 Depression Screening Interpretation: Positive Thrive Assessment: Date of Thrive Assessment Date Thrive assessed 04/23/23 08/12/23 08:45 Const General: No confusion Orientation/consciousness: No confusion HENMT Head: Yes normocephalic and Yes atraumatic Head images: 2 1. atypical raised skin tag Eyes Conjunctivae: conjunctivae normal Chest Chest palpation & inspection: normal inspection of the chest Resp Effort & Inspection: normal respiratory effort Auscultation: clear to auscultation bilaterally, no crackles, no rhonchi and no wheezes Cardio Rate: regular rate Rhythm: regular rhythm Heart sounds: S1 normal heart sound present and S2 normal heart sound present GI Inspection: Yes normal to inspection Neuro General: No confusion Cranial nerves: Yes Normal hearing present Extrem General: No edema Assessment and Plan Assessment & Plan (1) Atypical nevi: Code(s): D22.9 - Melanocytic nevi, unspecified Plan: Referred to [place] [facility] for further evaluation and possible removal. (2) Insomnia: Code(s): G47.00 - Insomnia, unspecified Plan: Patient advised to try 5 mg melatonin nightly before bed and follow-up consistent sleep routine and good sleep hygiene such as a to bed at the same time every day, avoiding electronics such STDs, folds prior to sleep. Can read a book. (3) Obesity: Code(s): E66.9 - Obesity, unspecified Plan: Patient advised to continue follow healthy diet and exercise to reduce BMI. Follow-up with weight management. (4) Anxiety: Code(s): F41.9 - Anxiety disorder, unspecified Plan: Continue to follow with therapist. (5) Depression: Code(s): F32.A - Depression, unspecified (6) Mental and behavioral problem: Code(s): F48.9 - Nonpsychotic mental disorder, unspecified; F69 - Unspecified disorder of adult personality and behavior Plan: Patient requesting referral for cognitive evaluation. Neuropsych entered back in January will follow-up on this referral. (7) Autism: Code(s): F84.0 - Autistic disorder (8) Low back pain: Code(s): M54.50 - Low back pain, unspecified Orders: Orders 2 PT Evaluation and Treatment Today M54.50 - Low back pain, unspecified Referrals 2 Dermatology Referral D22.9 - Melanocytic nevi, unspecified Medications: New 2 melatonin 5 mg PO BEDTIME PRN 30 tabs 0RF sleep G47.00 - Insomnia, unspecified Coding Level of Care Code Est Pt Level 4 (03753) Diagnoses Atypical nevi D22.9 Insomnia G47.00 Obesity E66.9 Anxiety F41.9 Depression F32.A Mental and behavioral problem F48.9; F69 Autism F84.0 Low back pain M54.50
== END 2023-08-12 09:08 | disposition home or self-care (01) ==
PROVIDERS: PCP Nurse Practitioner Family; Visit Provider Nurse Practitioner Family
DX: G47.00 Insomnia, unspecified (principal); F84.0 Autistic disorder; E66.9 Obesity, unspecified; Z68.41 Body mass index [BMI] 40.0-44.9, adult; F41.9 Anxiety disorder, unspecified; D22.9 Melanocytic nevi, unspecified; F32.A Depression, unspecified; M54.50 Low back pain, unspecified; F48.9 Nonpsychotic mental disorder, unspecified; F69 Unspecified disorder of adult personality and behavior
CPT/HCPCS: 99214

== ENCOUNTER 2023-08-13 08:46 | Emergency (ER) | payer OTHER, SELFPAY ==
[2023-08-13 08:56] VITALS: BP 118/74; PULSE 93; RESP 18; TEMP 36.6; O2SAT 99; BMI 41.2
--- NOTE | 2023-08-13 09:25 | ED_ITS ---
HPI - Back Pain/Injury General Chief Complaint: Back Pain/Injury Stated Complaint: back pain Time Seen by Provider: 08/13/23 09:22 Source: patient, RN notes reviewed and old records reviewed Mode of arrival: ambulatory History of Present Illness HPI Narrative: 23-year-old female with a past medical history PCOS, anxiety, depression, obesity, presenting to the ED complaining of bilateral low back pain radiating around sides x 4 days. took Motrin/OTC medications with brief relief. Denies known injury/trauma or fall, numbness/tingling, weakness, incontinence/retention, hematuria/dysuria, vaginal symptoms MD elicited complaint: back pain Related Data Previous Rx's Medication Instructions Recorded melatonin 5 mg tablet 5 mg PO BEDTIME PRN sleep #30 tabs 08/12/23 acetaminophen 500 mg tablet 500 mg PO Q6H PRN fever or pain 08/13/23 (Tylenol Extra Strength) #14 tabs cyclobenzaprine 5 mg tablet 5 mg PO Q8H PRN pain (scale score 08/13/23 7-10) 5 days #14 tabs lidocaine 5 % topical patch 1 patch topical DAILY PRN pain #30 08/13/23 (Lidoderm) ea naproxen 500 mg tablet 500 mg PO BID PRN pain 10 days #20 08/13/23 tabs Allergies Allergy/AdvReac Type Severity Reaction Status Date / Time No Known Allergies Allergy Verified 08/13/23 08:56 Review of Systems Review of Systems: Constitutional: No Fever, No Chills ENT/Mouth: No Ear Pain, No Nasal Congestion, No sore throat, No Rhinorrhea, No Swallowing Difficulty Cardiovascular: No Chest Pain, No SOB Respiratory: No Cough, No Sputum, No Wheezing Gastrointestinal: No Nausea, No Vomiting, No Diarrhea, No Abdominal pain Genitourinary: No Dysuria, No Urinary Frequency, No Hematuria, No Urinary Incontinence/retention, No Flank Pain Musculoskeletal: + joint pain, No Myalgias, No Joint Swelling Skin: No Skin Lesions, No rash Neuro: No Weakness, No Numbness, No Paresthesias Yes all other systems are reviewed and are negative Constitutional: Constitutional: Reports as per HPI Neurologic: Denies Sensory deficit (Neuro) [facility] Past Medical History Attestation statement: The following information was validated with the patient. Source: old records reviewed Medical History Mental and behavioral problem Vaginal odor Obesity Anxiety Depression Surgical History Hx of oral surgery Family History Family History Father No problems noted. Mother No problems noted. Social History Social History Housing: Apartment Alcohol intake: never Patient Tobacco Use Status: Never used Tobacco e-Cigarette/Vaping Use: Never Used Advance Directives: No service: No Current occupational status: unemployed Current occupational exposures/hazards: No Cognitive needs: No Hearing needs: No Vision needs: Yes (glasses) Physical Exam Vital Signs: Vital Signs: Last Vital Signs Temp 98 F 08/13/23 08:56 Pulse 93 08/13/23 08:56 Resp 18 08/13/23 08:56 BP 118/74 08/13/23 08:56 Pulse Ox 99 08/13/23 08:56 O2 Del Method Room Air 08/13/23 08:56 BMI result Body Mass Index 41.2 Const: General: cooperative, healthy appearing and no acute distress Orientation/consciousness: patient oriented x3 Limitations: no limitations HEENT: Head: Yes normal to inspection and Yes atraumatic Ears: hearing grossly normal bilaterally General nose exam: Normal external nose present Face and sinus: Yes normal facial exam Eyes: General: appearance normal, both eyes and all related structures EOM: EOMs intact bilaterally Neck: Neck: Yes normal visual inspection and Yes no meningeal signs Resp: Effort & Inspection: normal respiratory effort and no respiratory distress Auscultation: clear to auscultation bilaterally Cardio: Rate: regular rate Heart sounds: S1 normal heart sound present and S2 normal heart sound present GI: Inspection: Yes normal to inspection Palpation (GI): Soft to palpation, nontender, no guarding and not rigid : General: Yes no CVA tenderness Back/Spine/Pelvis: Other: No midline cervical/thoracic/lumbar spinous tenderness/step-off or deformity. P ain not reproducible Back: no CVA tenderness Skin: Rashes: no rashes Wounds: no wounds Neuro: Other: Strength intact throughout. No saddle anesthesia. Sensation intact to light touch. Neurovascular intact distally General: patient oriented x3, gait normal, tone normal, moves all extremities, no meningeal signs and no focal motor deficits Cranial nerves: Yes CN's II-XII intact bilaterally Gait exam (Neuro): Normal gait present Motor exam (neuro): 5/5 motor strength present throughout Sensory Exam: No Sensory deficit (Neuro) Extrem: General: Yes normal to inspection Course Course Course Narrative: -1012-UA not infected. negative Results discussed with patient including worrisome signs and symptoms and strict return precautions, and when to return to the emergency department. They verbalized understanding and feel safe for discharge at this time. Medications Administered Discontinued Medications Generic Name Dose Route Start Last Admin Trade Name Freq PRN Reason Stop Dose Admin Ketorolac Tromethamine 30 mg 08/13/23 09:41 08/13/23 09:52 Ketorolac Tromethamine 30 Mg/Ml Vial IM 08/13/23 09:42 30 mg ONCE ONE Administration Lidocaine 1 patch 08/13/23 09:41 08/13/23 09:52 Lidocaine 4 % Patch Adh..Patch TRANSDERMA 08/13/23 09:42 1 patch ONCE ONE Administration Protocol Medical Decision Making Medical Decision Making [facility] Narrative: 23-year-old female with a past medical history PCOS, anxiety, depression, obesity, presenting to the ED complaining of bilateral low back pain radiating around sides x 4 days. On exam vital signs stable, NAD, nontoxic appearing, physical exam as above, no midline spinous tenderness throughout red flag symptoms, imaging with steady gait, abdomen soft/nontender. Concern for MSK pain/strain/spasm pain. Low suspicion for pyelo, UTI, ovarian pathology, appendicitis/diverticulitis, cauda equina/cord compression Plan: UA, pain management Please refer to course for remaining clinical decision making, interpretation of labs/imaging results, and discussions with consultants and/or family members. Differential Diagnosis Differential Diagnoses: The differential diagnosis associated with the presentation includes As above Lab Data [facility] Lab Attestation statement: I reviewed the patient's lab results. Labs: Lab Results 08/13/23 Range/Units 09:55 Urine Color Yellow Urine Appearance Clear Urine pH 5.5 (5.0-9.0) Ur Specific [place] >= 1.030 H (1.005-1.025) Urine Protein Negative (Neg-Trace) mg/dL Urine Glucose (UA) Negative (Negative) mg/dL Urine Ketones Negative (Negative) mg/dL Urine Blood Negative (Negative) Urine Nitrite Negative (Negative) Ur Leukocyte Esterase Trace H (Negative) Urine RBC 0-2 (0-2) /HPF Urine WBC 0-5 (0-5) /HPF Ur Squamous Epith Cells 0-2 (0-2) /HPF Urine Bacteria None Seen (None Seen) Hyaline Casts 0-2 (0-2) /LPF Urine Test NEGATIVE (NEGATIVE) External Record Review External record reviewed: Inpatient record, Office record, Outpatient record, Prior outpatient labs, Prior outpatient radiology, Primary care record and Outside ED record Tests considered The following testing was considered but not selected: As above Prescription Management I considered prescription management with: Pain Medication Discharge Plan Discharge Clinical Impression: Low back pain Patient Disposition: Home, Self-Care Instructions: Acute Low Back Pain (ED) Additional Instructions: Your pain is likely musculoskeletal Flexeril is a muscle relaxer, take at night as it makes you drowsy, do not drive, drink alcohol, or operate machinery while taking it Naproxen as an anti-inflammatory / pain medication, take with food Lidoderm patches are numbing patches, apply to painful area In addition take Tylenol at home If symptoms persist or worsen, pain becomes unbearable, you developed urinary retention or incontinence, or weakness return to the ED Prescriptions: New acetaminophen [Tylenol Extra Strength] 500 mg tablet 500 mg PO Q6H PRN (Reason: fever or pain) Qty: 14 0RF lidocaine [Lidoderm] 5 % adhesive patch,medicated 1 patch topical DAILY MDD remove after 12 hours PRN (Reason: pain) Qty: 30 0RF Rx Instructions: leave on most painful area for up to 12 hrs naproxen 500 mg tablet 500 mg PO BID PRN (Reason: pain) 10 Days Qty: 20 0RF cyclobenzaprine 5 mg tablet 5 mg PO Q8H PRN (Reason: pain (scale score 7-10)) 5 Days Qty: 14 0RF No Action melatonin 5 mg tablet 5 mg PO BEDTIME PRN (Reason: sleep) Qty: 30 0RF Referrals: Sonya Morley FNP [Primary Care Provider] - 5 days Interventions: ED Discharge Assessment Last Done: 08/13/23 10:21 Discharge Date/Time: 08/13/23 10:21
[2023-08-13] MEDS: Ketorolac Tromethamine 30 MG/ML VIAL IM (09:52)
[2023-08-13] MEDS: Lidocaine 4 % Patch ADH..PATCH 1 PATCH TRANSDERMA (09:52)
[2023-08-13 10:05] LABS: Appearance Urine Clear; Color Urine Yellow; Glucose Urine UA Negative (Negative); Leukocyte Esterase Urine Trace (Negative); Nitrite Urine Negative (Negative); PH 5.5 (5.0-9.0); Specific Gravity - Urine >= 1.030 (1.005-1.025); UMIC TRIGGER UACC YES; Urine Blood Negative (Negative); Urine Ketones Negative (Negative); Urine Protein Negative (Neg-Trace)
[2023-08-13 10:07] LABS: UPreg QC Valid YES; Urine Pregnancy NEGATIVE (NEGATIVE)
[2023-08-13 10:10] LABS: Bacteria Urine None Seen (None Seen); Hyaline Casts Urine 0-2 /LPF (0-2); RBC Urine 0-2 /HPF (0-2); Squamous Epithelial Cell Urine 0-2 /HPF (0-2); WBC Urine 0-5 /HPF (0-5)
== END 2023-08-13 10:21 | disposition home or self-care (01) ==
PROVIDERS: Physician Assistant; Emergency Provider Emergency Medicine; PCP Nurse Practitioner Family
DX: M54.50 Low back pain, unspecified (principal); E66.9 Obesity, unspecified; Z68.41 Body mass index [BMI] 40.0-44.9, adult; Z79.899 Other long term (current) drug therapy
CPT/HCPCS: 81001; 81025; 90471; 96372; 99283; 99284; J1885

== ENCOUNTER 2023-08-21 09:09 | Emergency (ER) | payer OTHER, SELFPAY ==
[2023-08-21 09:11] VITALS: BP 145/87; PULSE 95; RESP 18; O2SAT 99; BMI 42.0
--- NOTE | 2023-08-21 10:42 | ED.GENADULT ---
HPI - General Adult General Chief complaint: Back Pain/Injury Stated complaint: Back Pain Radiating to Abdomen Area No Injury Time Seen by Provider: 08/21/23 10:39 Source: patient Mode of arrival: ambulatory Limitations: no limitations History of Present Illness HPI narrative: Patient is a 23-year-old female with history of PCOS, anxiety, depression, obesity presenting to the emergency department with low back pain radiating to lower abdomen. Patient was seen in this emergency department for similar complaint on 08/13 and prescribed lidocaine patches, cyclobenzaprine, naproxen and acetaminophen. Patient reports that yesterday she forgot to take her pain medications and her pain increased. States the pain improved after taking the medication last night and this morning. Denies any falls or other recent trauma. States last menstrual period was approximately 1 month ago. Denies fevers. Denies any dysuria, urinary frequency or other urinary symptoms. Denies nausea or vomiting, denies constipation. Reports 1 episode of diarrhea last night, none since. States has been eating and drinking normally. Denies any saddle anesthesia or bowel or bladder incontinence. Denies any abnormal vaginal discharge. Denies any concern for STIs. MD complaint: Back pain Onset (ago): day(s) Location: back Radiation: abdomen Severity scale (1-10): 4 Quality: aching Pain Consistency: intermittent Relieving factors: medication Associated symptoms: other (1 episode of diarrhea last night, none since) Treatments prior to arrival: NSAID and other Related Data Previous Rx's Medication Instructions Recorded melatonin 5 mg tablet 5 mg PO BEDTIME PRN sleep #30 tabs 08/12/23 acetaminophen 500 mg tablet 500 mg PO Q6H PRN fever or pain 08/13/23 (Tylenol Extra Strength) #14 tabs cyclobenzaprine 5 mg tablet 5 mg PO Q8H PRN pain (scale score 08/13/23 7-10) 5 days #14 tabs lidocaine 5 % topical patch 1 patch topical DAILY PRN pain #30 08/13/23 (Lidoderm) ea naproxen 500 mg tablet 500 mg PO BID PRN pain 10 days #20 08/13/23 tabs Allergies Allergy/AdvReac Type Severity Reaction Status Date / Time No Known Allergies Allergy Verified 08/13/23 08:56 Review of Systems Review of Systems: As per HPI. Yes all other systems are reviewed and are negative Constitutional: Constitutional: Reports as per HPI PMFSH Past Medical History Medical History Mental and behavioral problem Vaginal odor Obesity Anxiety Depression Surgical History Hx of oral surgery Family History Family History Father No problems noted. Mother No problems noted. Social History Social History Housing: Apartment Alcohol intake: never Patient Tobacco Use Status: Never used Tobacco e-Cigarette/Vaping Use: Never Used Advance Directives: No Advance Directives Information Provided: Yes service: No Current occupational status: unemployed Current occupational exposures/hazards: No Cognitive needs: No Hearing needs: No Vision needs: Yes (glasses) Physical Exam ED Vital Signs: Vital Signs - 24 hr 08/21/23 09:11 Pulse Rate 95 Respiratory Rate 18 Blood Pressure 145/87 H Pulse Oximetry 99 Oxygen Delivery Method Room Air BMI result Body Mass Index 42.0 Vital signs have been reviewed and appear to be correct. Blood pressure normal. Heart rate normal. Respiratory rate normal. Temperature normal. Oxygen saturation normal. Const General: cooperative, healthy appearing and no acute distress Orientation/consciousness: oriented to person, oriented to place, oriented to time and patient oriented x3 Limitations: no limitations HENMT Head: Yes normocephalic and Yes atraumatic Ears: external ears normal General nose exam: Normal external nose present Face and sinus: Yes face symmetric Mouth: oropharynx normal and moist mucous membranes Throat: Yes uvula midline Eyes Pupils: Equal, round and reactive pupils present Neck Neck: Yes normal visual inspection and Yes supple Resp Effort & Inspection: normal respiratory effort and able to speak in complete sentences Auscultation: clear to auscultation bilaterally Cardio Rate: regular rate Rhythm: regular rhythm Heart sounds: S1 normal heart sound present and S2 normal heart sound present GI Palpation (GI): Soft to palpation and nontender Auscultation: normoactive bowel sounds General: Yes no CVA tenderness Back/Spine/Pelvis Back: no CVA tenderness Thoracic/Lumbar Spine: thoracic and lumbar spine normal to inspection, thoraco-lumbar ROM normal, straight leg raise negative bilaterally, No thoracic spinal tenderness and No lumbar spinal tenderness Pelvis: no pain with anterior-posterior compression and no pain with lateral compression Sacroiliac joints: bilaterally nontender Skin General skin exam: elasticity normal and turgor normal Neuro General: oriented to person, oriented to place, oriented to time, patient oriented x3, gait normal, tone normal, moves all extremities, Normal light touch and pain sensation, no focal motor deficits, CN's II-XI intact bilaterally and deep tendon reflexes 2+ bilaterally Cranial nerves: Yes Equal, round and reactive pupils present Cognition (Neuro): normal cognition Motor exam (neuro): 5/5 motor strength present throughout Extrem General: Yes full ROM, Yes no pedal edema and Yes no calf tenderness Psych Mental Status: mental status grossly normal Affect: normal affect Thought process: Normal thought process present Medical Decision Making Medical Decision Making [facility] Narrative: Patient is a 23-year-old female with history of PCOS, anxiety, depression, obesity presenting to the emergency department with low back pain radiating to lower abdomen. On exam patient is awake, A+Ox3, VS WNL, afebrile, nontoxic appearing, physical exam as above. Given reported symptoms and physical exam findings, initial differential includes lumbar strain, muscoloskeletal pain, spasms, UTI, . Low suspicion for appendicitis, diverticulitis, ovarian cyst, ovarian torsion. No concern for cauda equina, cord compression, spinal epidural abscess. Patient reports pain is manageable at this time as she took medications this morning, declines need for additional medication at this time. UA is without evidence of infection, negative. Patient updated on results. Feels symptoms are likely related to patient missing doses of her medication. Discussed with patient whether she has adequate supply of medication and patient states that she does. States that she was referred to physical therapy but has not heard from them yet. Encouraged patient to contact her primary care provider to determine which physical therapy she was referred to so that she can attempt to schedule an appointment. Return precautions discussed at bedside. Patient verbalized understanding of and agreement with plan. Differential Diagnosis Differential Diagnoses: The differential diagnosis associated with the presentation includes As per MDM. Lab Data [facility] Lab Attestation statement: I reviewed the patient's lab results. As per MDM. Labs: Lab Results 08/21/23 Range/Units 10:57 Urine Color Yellow Urine Appearance Clear Urine pH 6.0 (5.0-9.0) Ur Specific [place] >= 1.030 H (1.005-1.025) Urine Protein Negative (Neg-Trace) mg/dL Urine Glucose (UA) Negative (Negative) mg/dL Urine Ketones Negative (Negative) mg/dL Urine Blood Negative (Negative) Urine Nitrite Negative (Negative) Ur Leukocyte Esterase Negative (Negative) Urine Test NEGATIVE (NEGATIVE) External Record Review External record reviewed: Inpatient record, Office record and Outpatient record Tests considered The following testing was considered but not selected: Considered x-ray, however, patient denies any trauma Prescription Management I considered prescription management with: Pain Medication Patient reports she has adequate supply at home Discharge Plan Discharge Clinical Impression: Low back pain Qualifiers: Chronicity: acute Back pain laterality: bilateral Sciatica presence: without sciatica Qualified Code(s): M54.50 - Low back pain, unspecified Patient Disposition: Home, Self-Care Instructions: Acute Low Back Pain (ED), Back Pain (ED) Additional Instructions: You were evaluated in the emergency department today for back pain. Your evaluation did not show signs of medical conditions requiring emergent intervention at this time. We recommended that you use ibuprofen or Tylenol per package directions every 6 hours as needed for pain. If necessary, you can alternate these medications so that you take one medication every 3 hours. For instance, at noon take ibuprofen, then at 3:00 p.m. take Tylenol, then at 6:00 p.m. take ibuprofen. Please schedule an appointment for follow-up with your primary care physician this week for further evaluation of your symptoms. Return to the emergency department if you experience worsening back pain, difficulty walking, fevers, numbness, tingling, incontinence, groin numbness or tingling, or any other concerning symptoms. Prescriptions: No Action acetaminophen [Tylenol Extra Strength] 500 mg tablet 500 mg PO Q6H PRN (Reason: fever or pain) Qty: 14 0RF lidocaine [Lidoderm] 5 % adhesive patch,medicated 1 patch topical DAILY MDD remove after 12 hours PRN (Reason: pain) Qty: 30 0RF Rx Instructions: leave on most painful area for up to 12 hrs naproxen 500 mg tablet 500 mg PO BID PRN (Reason: pain) 10 Days Qty: 20 0RF cyclobenzaprine 5 mg tablet 5 mg PO Q8H PRN (Reason: pain (scale score 7-10)) 5 Days Qty: 14 0RF melatonin 5 mg tablet 5 mg PO BEDTIME PRN (Reason: sleep) Qty: 30 0RF
[2023-08-21 11:06] LABS: Appearance Urine Clear; Color Urine Yellow; Glucose Urine UA Negative (Negative); Leukocyte Esterase Urine Negative (Negative); Nitrite Urine Negative (Negative); Specific Gravity - Urine >= 1.030 (1.005-1.025); Urine Blood Negative (Negative); Urine Ketones Negative (Negative); Urine Protein Negative (Neg-Trace)
[2023-08-21 11:08] LABS: UPreg QC Valid YES; Urine Pregnancy NEGATIVE (NEGATIVE)
[2023-08-21 11:50] VITALS: BP 103/71; PULSE 77; RESP 16; O2SAT 98
== END 2023-08-21 12:05 | disposition home or self-care (01) ==
PROVIDERS: Registered Nurse Emergency; Emergency Provider Emergency Medicine Emergency Medical Services; PCP Nurse Practitioner Family
DX: M54.50 Low back pain, unspecified (principal); Z79.899 Other long term (current) drug therapy
CPT/HCPCS: 81003; 81025; 99282; 99284

== ENCOUNTER 2023-09-06 09:41 | Emergency (ER) | payer OTHER, SELFPAY ==
[2023-09-06 09:50] VITALS: BP 130/74; PULSE 99; RESP 20; TEMP 37.3; O2SAT 96; BMI 41.4
--- NOTE | 2023-09-06 10:23 | ED.URI ---
HPI - URI/Sore Throat General Chief Complaint: Upper Respiratory Symptoms Stated Complaint: Sore throat Time Seen by Provider: 09/06/23 10:01 Source: patient Mode of arrival: ambulatory Limitations: no limitations History of Present Illness HPI Narrative: 23-year-old female with history of PCOS, anxiety, depression, obesity here with complaints of sore throat, nasal congestion and cough since yesterday. no fevers, chills, headache, neck pain or neck stiffness, vomiting, diarrhea, chest pain, shortness of breath. Patient denies any recent travel or sick contact. Patient did not do any COVID testing at home. Related Data Previous Rx's Medication Instructions Recorded melatonin 5 mg tablet 5 mg PO BEDTIME PRN sleep #30 tabs 08/12/23 acetaminophen 500 mg tablet 500 mg PO Q6H PRN fever or pain 08/13/23 (Tylenol Extra Strength) #14 tabs cyclobenzaprine 5 mg tablet 5 mg PO Q8H PRN pain (scale score 08/13/23 7-10) 5 days #14 tabs lidocaine 5 % topical patch 1 patch topical DAILY PRN pain #30 08/13/23 (Lidoderm) ea naproxen 500 mg tablet 500 mg PO BID PRN pain 10 days #20 08/13/23 tabs Allergies Allergy/AdvReac Type Severity Reaction Status Date / Time No Known Allergies Allergy Verified 08/13/23 08:56 Review of Systems Review of Systems: Yes all other systems are reviewed and are negative Constitutional: Constitutional: Reports no additional constitutional complaints, Denies body ache(s), Denies chills, Denies fever(s), Denies headache(s) and Denies weakness Eyes: Eyes: Reports no additional eye complaints and Denies change in vision ENT: Reports system reviewed and no additional complaints, except as documented, Denies dizziness, Denies headache(s), Reports nasal congestion, Denies nasal discharge, Denies neck pain and Reports sore throat Cardiovascular: Cardiovascular: Reports no additional cardiovascular complaints, Denies chest pain, Denies leg edema and Denies dyspnea Respiratory: Respiratory: Reports no additional respiratory complaints, Reports cough and Denies dyspnea Gastrointestinal: Gastrointestinal: Reports no additional gastrointestinal complaints, Denies abdominal pain, Denies diarrhea, Denies nausea and Denies vomiting Genitourinary: Genitourinary: Reports no additional female genitourinary complaints and Denies urinary incontinence Musculoskeletal: Musculoskeletal: Reports no additional musculoskeletal complaints, Denies back pain, Denies arthralgias, Denies joint swelling, Denies neck pain, Denies numbness and Denies tingling Integumentary/Breasts: Skin/Breast: Reports system reviewed and no additional complaints, except as docu and Denies rash Neurologic: Reports system reviewed and no additional complaints, except as documented, Denies Abnormal speech present, Denies dizziness, Denies headache(s), Denies numbness, Denies tingling and Denies weakness [facility] Past Medical History Attestation statement: The following information was validated with the patient. Source: old records reviewed and nursing notes reviewed Medical History Mental and behavioral problem Vaginal odor Obesity Anxiety Depression Surgical History Hx of oral surgery Family History Family History Father No problems noted. Mother No problems noted. Social History Social History Housing: Apartment Alcohol intake: never Patient Tobacco Use Status: Never used Tobacco e-Cigarette/Vaping Use: Never Used Advance Directives: No Advance Directives Information Provided: Yes service: No Current occupational status: unemployed Current occupational exposures/hazards: No Cognitive needs: No Hearing needs: No Vision needs: Yes (glasses) Physical Exam Vital Signs: Vital Signs: Last Vital Signs Temp 99.2 F 09/06/23 09:50 Pulse 99 09/06/23 09:50 Resp 20 09/06/23 09:50 BP 130/74 09/06/23 09:50 Pulse Ox 96 09/06/23 09:50 O2 Del Method Room Air 09/06/23 09:50 BMI result Body Mass Index 41.4 Const: General: cooperative, healthy appearing, comfortable and no acute distress Orientation/consciousness: patient oriented x3 Limitations: no limitations HEENT: Head: Yes normal to inspection Ears: hearing grossly normal bilaterally and TM's normal bilaterally General nose exam: Normal external nose present Face and sinus: Yes normal facial exam Mouth: Normal oral and palatal mucosa present Throat: Yes posterior oropharynx normal, Yes tonsils normal and Yes uvula midline Eyes: General: appearance normal, both eyes and all related structures Pupils: Equal, round and reactive pupils present Neck: Neck: Yes normal visual inspection, Yes full ROM, Yes no lymphadenopathy and Yes no meningeal signs Chest: Chest palpation & inspection: normal inspection of the chest Resp: Effort & Inspection: normal respiratory effort Auscultation: clear to auscultation bilaterally Cardio: Rate: regular rate Rhythm: regular rhythm Peripheral pulses: Peripheral pulses 2+ throughout GI: Inspection: Yes normal to inspection Palpation (GI): Soft to palpation and nontender Auscultation: normal bowel sounds Back/Spine/Pelvis: Thoracic/Lumbar Spine: thoracic and lumbar spine normal to inspection Skin: General skin exam: no rashes or lesions noted Neuro: General: patient oriented x3, no meningeal signs, no focal motor deficits and normal sensation to monofilament Cranial nerves: Yes Equal, round and reactive pupils present Cognition (Neuro): normal cognition Speech: No Abnormal speech present Gait exam (Neuro): Normal gait present Motor exam (neuro): 5/5 motor strength present throughout Extrem: General: Yes normal to inspection Course Course Course Narrative: strep screen is negative. COVID screen is positive. No hypoxia or tachypnea. Patient is well appearing. Stable vital signs. Plan for discharge home with recommendations for supportive care. Reviewed worrisome signs and symptoms of when to return to the emergency room. Comfortable plan for discharge home. Medications Administered Discontinued Medications Generic Name Dose Route Start Last Admin Trade Name Freq PRN Reason Stop Dose Admin Acetaminophen 650 mg 09/06/23 10:27 09/06/23 10:34 Acetaminophen 325 Mg Tablet PO 09/06/23 10:28 650 mg ONCE ONE Administration Medical Decision Making Medical Decision Making [facility] Narrative: 23-year-old female with history of PCOS, anxiety, depression, obesity here with complaints of sore throat, nasal congestion and cough since yesterday. no fevers, chills, headache, neck pain or neck stiffness, vomiting, diarrhea, chest pain, shortness of breath. Patient denies any recent travel or sick contact. Patient did not do any COVID testing at home. Exam is benign. Vitals are stable. Will send testing for strep and COVID. Differential Diagnosis Differential Diagnoses: The differential diagnosis associated with the presentation includes Exam not consistent with strep pharyngitis, epiglottitis, Camacho's angina, BUSINESS [employer]NAG[employer] PROFESS[employer], RPA viral syndrome Admission/Observation Consideration of admission/observation: Escalation of care including admission/observation considered No hypoxia or tachypnea to suggest need for supplemental oxygen and or admission Lab Data [facility] Lab Attestation statement: I reviewed the patient's lab results. COVID screen is positive Labs: Lab Results 09/06/23 09/06/23 Range/Units 09:55 10:33 COVID-19 (SONAL) Positive A (Negative) COVID-19 Clin Com See Note S. pyogenes GrpA CANDICE Negative (Negative) Tests considered The following testing was considered but not selected: no hypoxia or tachypnea to suggest need for chest x-ray or lab Prescription Management I considered prescription management with: Antiviral and Antibiotic Discharge Plan Discharge Clinical Impression: COVID-19 Patient Disposition: Home, Self-Care Instructions: COVID-19 (Coronavirus Disease 2019) (ED) Additional Instructions: Alternate Motrin and Tylenol for pain as needed Increase fluids, rest Return for any shortness of breath or chest pain. Please quarantine for 5 days. Then mask up for an additional 5 more days. Prescriptions: No Action acetaminophen [Tylenol Extra Strength] 500 mg tablet 500 mg PO Q6H PRN (Reason: fever or pain) Qty: 14 0RF lidocaine [Lidoderm] 5 % adhesive patch,medicated 1 patch topical DAILY MDD remove after 12 hours PRN (Reason: pain) Qty: 30 0RF Rx Instructions: leave on most painful area for up to 12 hrs naproxen 500 mg tablet 500 mg PO BID PRN (Reason: pain) 10 Days Qty: 20 0RF cyclobenzaprine 5 mg tablet 5 mg PO Q8H PRN (Reason: pain (scale score 7-10)) 5 Days Qty: 14 0RF melatonin 5 mg tablet 5 mg PO BEDTIME PRN (Reason: sleep) Qty: 30 0RF Referrals: Sonya Morley FNP [Primary Care Provider] - 1 week
== END 2023-09-06 11:11 | disposition home or self-care (01) ==
PROVIDERS: Emergency Provider Emergency Medicine; PCP Nurse Practitioner Family
DX: U07.1 COVID-19 (principal); J02.9 Acute pharyngitis, unspecified; R05.9 Cough, unspecified; R09.81 Nasal congestion; Z79.899 Other long term (current) drug therapy
CPT/HCPCS: 87635; 87651; 99283

== ENCOUNTER 2023-09-19 18:24 | Emergency (ER) | payer OTHER, SELFPAY ==
[2023-09-19 19:07] VITALS: BP 112/74; PULSE 89; RESP 18; TEMP 36.8; O2SAT 97; BMI 41.4
--- NOTE | 2023-09-19 19:11 | ED_ITS ---
HPI - Ear Problem General Chief complaint: Ear Problems Stated complaint: ear pain Time Seen by Provider: 09/19/23 19:11 Source: patient Mode of arrival: ambulatory Limitations: no limitations History of Present Illness HPI Narrative: Patient is a 23-year old female with history of autism, PCOS presenting to the emergency department with complaint of left ear pain since yesterday. Denies fevers, nasal congestion, cough, other URI symptoms. Has not tried any OTC medications for her pain. Denies any decreased hearing. MD Complaint: ear pain Location: left ear Duration: constant Severity: severe Relieving factors: nothing Exacerbating factors: nothing Discharge from ear: no Treatment prior to arrival: none Related Data Previous Rx's Medication Instructions Recorded melatonin 5 mg tablet 5 mg PO BEDTIME PRN sleep #30 tabs 08/12/23 acetaminophen 500 mg tablet 500 mg PO Q6H PRN fever or pain 08/13/23 (Tylenol Extra Strength) #14 tabs cyclobenzaprine 5 mg tablet 5 mg PO Q8H PRN pain (scale score 08/13/23 7-10) 5 days #14 tabs lidocaine 5 % topical patch 1 patch topical DAILY PRN pain #30 08/13/23 (Lidoderm) ea naproxen 500 mg tablet 500 mg PO BID PRN pain 10 days #20 08/13/23 tabs amoxicillin 875 mg tablet 875 mg PO BID #10 tabs 09/19/23 Allergies Allergy/AdvReac Type Severity Reaction Status Date / Time No Known Allergies Allergy Verified 09/19/23 19:12 Review of Systems Review of Systems: As per HPI. Yes all other systems are reviewed and are negative Constitutional: Constitutional: Reports as per HPI PMFSH Past Medical History Medical History Mental and behavioral problem Vaginal odor Obesity Anxiety Depression Surgical History Hx of oral surgery Family History Family History Father No problems noted. Mother No problems noted. Social History Social History Housing: Apartment Alcohol intake: never Patient Tobacco Use Status: Never used Tobacco e-Cigarette/Vaping Use: Never Used Advance Directives: No Advance Directives Information Provided: Yes service: No Current occupational status: unemployed Current occupational exposures/hazards: No Cognitive needs: No Hearing needs: No Vision needs: Yes (glasses) Physical Exam Vital Signs: Vital Signs: Last Vital Signs Temp 98.3 F 09/19/23 19:07 Pulse 89 09/19/23 19:07 Resp 18 09/19/23 19:07 BP 112/74 09/19/23 19:07 Pulse Ox 97 09/19/23 19:07 O2 Del Method Room Air 09/19/23 19:07 BMI result Body Mass Index 41.4 Vital signs have been reviewed and appear to be correct. Blood pressure normal. Heart rate normal. Respiratory rate normal. Temperature normal. Oxygen saturation normal. Const: General: cooperative, healthy appearing and no acute distress Orientation/consciousness: oriented to person, oriented to place, oriented to time and patient oriented x3 Limitations: no limitations HEENT: Head: Yes normocephalic and Yes atraumatic Ears: external ears normal, mastoids normal bilaterally, Abnormal EAC present cerumen impaction on the left and TM abnormal obstructed by cerumen on the left and scarred on the right General nose exam: Normal external nose present Face and sinus: Yes face symmetric Mouth: oropharynx normal and moist mucous membranes Throat: Yes uvula midline Eyes: Pupils: Equal, round and reactive pupils present Neck: Neck: Yes normal visual inspection and Yes supple Resp: Effort & Inspection: normal respiratory effort and able to speak in complete sentences Auscultation: clear to auscultation bilaterally Cardio: Rate: regular rate Rhythm: regular rhythm Heart sounds: S1 normal heart sound present and S2 normal heart sound present GI: Palpation (GI): Soft to palpation and nontender Auscultation: normoactive bowel sounds : General: Yes no CVA tenderness Back/Spine/Pelvis: Back: no CVA tenderness Skin: General skin exam: elasticity normal and turgor normal Neuro: General: oriented to person, oriented to place, oriented to time, patient oriented x3, moves all extremities, no focal motor deficits and CN's II- XI intact bilaterally Cranial nerves: Yes Equal, round and reactive pupils present Cognition (Neuro): normal cognition Extrem: General: Yes full ROM, Yes no pedal edema and Yes no calf tenderness Psych: Mental Status: mental status grossly normal Affect: normal affect Thought process: Normal thought process present Medical Decision Making Medical Decision Making MDM Narrative: Patient is a 23-year old female with history of autism, PCOS presenting to the emergency department with complaint of left ear pain since yesterday. On exam p atient is awake, A+Ox3, VS WNL, afebrile, normal neurological exam without focal deficits, physical exam findings as above. Given reported symptoms and physical exam findings, initial differential includes otitis media, otitis externa, cerumen impaction. No evidence of mastoiditis. Given that TM unable to be visualized on L due to cerumen impaction, will treat for AOM and advise patient to begin treatment with OTC Debrox drops. Instructed patient to follow up with PCP. Return precautions discussed. Patient verbalized understanding of and agreement with plan. Differential Diagnosis Differential Diagnoses: The differential diagnosis associated with the presentation includes As per MDM. External Record Review External record reviewed: Inpatient record, Office record and Outpatient record Prescription Management I considered prescription management with: Antibiotic Discharge Plan Discharge Clinical Impression: Cerumen impaction Qualifiers: Laterality: left Qualified Code(s): H61.22 - Impacted cerumen, left ear Patient Disposition: Home, Self-Care Instructions: Carbamide Peroxide (Into the ear) Additional Instructions: You were evaluated in the emergency department today for ear pain. You were found to have a cerumen impaction (ear wax blocking your eardrum) on your physical exam. Since we were unable to visualize your eardrum, we are prescribing antibiotics to treat an ear infection. Please complete the full course of antibiotics as prescribed. We also recommend that you begin using amma-ita-chyduar Debrox drops to decrease the ear wax. Please follow up with your primary care provider within two days. Return to the emergency department if you experience hearing loss, discharge from your ear, headaches, fevers, recurrent vomiting, or any other concerning symptoms. Prescriptions: New amoxicillin 875 mg tablet 875 mg PO BID Qty: 10 0RF No Action acetaminophen [Tylenol Extra Strength] 500 mg tablet 500 mg PO Q6H PRN (Reason: fever or pain) Qty: 14 0RF lidocaine [Lidoderm] 5 % adhesive patch,medicated 1 patch topical DAILY MDD remove after 12 hours PRN (Reason: pain) Qty: 30 0RF Rx Instructions: leave on most painful area for up to 12 hrs naproxen 500 mg tablet 500 mg PO BID PRN (Reason: pain) 10 Days Qty: 20 0RF cyclobenzaprine 5 mg tablet 5 mg PO Q8H PRN (Reason: pain (scale score 7-10)) 5 Days Qty: 14 0RF melatonin 5 mg tablet 5 mg PO BEDTIME PRN (Reason: sleep) Qty: 30 0RF
== END 2023-09-19 19:40 | disposition home or self-care (01) ==
PROVIDERS: Emergency Provider Emergency Medicine; PCP Nurse Practitioner Family
DX: H92.02 Otalgia, left ear (principal); H61.22 Impacted cerumen, left ear
CPT/HCPCS: 99282; 99283

== ENCOUNTER 2023-12-10 10:37 | Outpatient (AMB) | payer OTHER, SELFPAY ==
[2023-12-10 11:16] VITALS: BP 112/66; PULSE 90; RESP 17; O2SAT 98; BMI 41.8
--- NOTE | 2023-12-10 11:16 | MHC.PC.OV ---
Vital Signs 12/10/23 11:16 Height 5 ft 6 in Weight 259 lb BMI 41.8 BP 112/66 Blood Pressure Location Lt brachial Position Sitting Respiration 17 Pulse 90 Pulse Source Pulse Oximeter Pulse Oximetry (%) 98 Oxygen Delivery Method Room Air Intake Visit Reasons: Neurology Referral Stucco Applicator Required: No Accompanied by: Father Is last menstrual period known: Yes Last menstrual period: 12/08/23 Allergies No Known Allergies Allergy (Verified 12/10/23 11:17) Medication List - Last Reconciled 12/15/23 by Jhon Recio MD acetaminophen (Tylenol Extra Strength) 500 mg PO Q6H PRN amoxicillin 875 mg PO BID cyclobenzaprine 5 mg PO Q8H PRN 5 days lidocaine 5% (Lidoderm) 1 patch topical DAILY PRN MDD remove after 12 hours melatonin 5 mg PO BEDTIME PRN naproxen 500 mg PO BID PRN 10 days Tobacco use date assessed: 12/10/23 Dental Screening Dental Screen Date: 12/10/23 Did you have a dental visit in the last 12 months?: Yes Did you have a dental problem in the last 6 months where you did not have access to dental care?: No Was dental information given to patient?: Patient has dentist HPI Neurology Referral HPI Details 23-year-old female presents to the office to discuss her medical problems. Her regular provider has left the practice and I will be her provider from now. Patient wants to be evaluated for be behavioral disorder, poor memory etcetera. She gives baseline diagnosis of ADHD and autism. She can not recall when she was diagnosed. She can not recall if she was ever on medications. She comes to the office with her father who does not speak much. Patient reports that she tends to forget a lot. Can not remember the name of people or prescriptions. She is already seeing a therapist. Unable to get a job for the past 18 months. [facility] Medical History Mental and behavioral problem Vaginal odor Obesity Anxiety Depression Surgical History Hx of oral surgery Family History Father No problems noted. Mother No problems noted. Social History (Reviewed 01/11/24 @ 11:22 by EVERTON Shane Housing: Apartment Alcohol intake: never Patient Tobacco Use Status: Never used Tobacco e-Cigarette/Vaping Use: Never Used service: No Current occupational status: unemployed Current occupational exposures/hazards: No Cognitive needs: No Hearing needs: No Vision needs: Yes (glasses) Female Reproductive History Menstrual Age of Menarche: 10 Date of last menstrual period: 12/08/23 Questionnaire PHQ-9 Over the last 2 weeks, how often have you been bothered by any of the following problems? 1. Little interest or pleasure in doing things: not at all 2. Feeling down, depressed, or hopeless: not at all 3. Trouble falling or staying asleep, or sleeping too much: not at all 4. Feeling tired or having little energy: not at all 5. Poor appetite or overeating: not at all 6. Feeling bad about yourself - or that you are a failure or have let yourself or your family down: not at all 7. Trouble concentrating on things, such as reading the newspaper or watching television: not at all 8. Moving or speaking so slowly that other people could have noticed. Or the opposite - being so fidgety or restless that you have been moving around a lot more than usual: not at all 9. Thoughts that you would be better off or of hurting yourself in some way: not at all Total score: 0 Depression Screening Interpretation: Negative Depression Screening Done: Yes 99881 - PHQ-9 Billing: Yes Source: Developed by Drs. Bernardino Angeles, Naty Augustin, Jarvis Verduzco and colleagues, with an educational susan from [employer]. Thrive Questionnaire Date Thrive assessed: 12/10/23 I am a: Patient What is your living situation today?: I have a steady place to live Within the past 12 months, did the food you bought not last and you didn't have the money to get more?: Never true Within the past 12 months, did you worry whether your food would run out before you got money to buy more?: Never true Do you have trouble paying for medicines?: No Do you have trouble getting transportation to medical appointments?: No Do you have trouble paying your heating and electricity bill?: No Do you have trouble taking care of your child, family member or friend?: No Do you have trouble with day-to-day activities such as bathing, preparing meals, shopping, managing finances, etc.?: No Are you currently unemployed and looking for a job?: No Are you interested in more education?: No Please select the resources that you would like help with: None Currently or been in a relationship where the following occur: no concerns reported AUDIT C Alcohol Use Questionnaire (AUDIT-C) 1. How often do you have a drink containing alcohol?: Never 3. How often do you have six or more drinks on one occasion?: Never Total Score: 0 RAYMUNDO-7 AMB Questionnaire RAYMUNDO-7 Date RAYMUNDO - 7 assessed: 12/10/23 Feeling nervous, anxious, or on edge: 0 = Not at all Not being able to stop or control worryin = Not at all Worrying too much about different things: 0 = Not at all Trouble relaxin = Not at all Being so restless that it is hard to sit still: 0 = Not at all Becoming easily annoyed or irritable: 0 = Not at all Feeling afraid as if something awful might happen: 0 = Not at all Total RAYMUNDO-7 score (0-4 normal; 5-9 mild; 10-14 moderate; 15-21 severe): 0 Source: Developed by Drs. Bernardino Angeles, Naty Augustin, Jarvis Verduzco and colleagues, with an educational susan from [employer]. RAYMUNDO-7 Assessment Billing RAYMUNDO-7 Assessment Tool: RAYMUNDO-7 Assessment 27511 Physical exam (Primary Care) Vital Signs: Last Vital Signs Pulse 90 12/10/23 11:16 Resp 17 12/10/23 11:16 BP 112/66 12/10/23 11:16 Pulse Ox 98 12/10/23 11:16 Oxygen Delivery Method Room Air 12/10/23 11:16 BMI result Body Mass Index 41.8 Tobacco/Smoking Status: Tobacco use Status Tobacco use date assessed 12/10/23 12/10/23 11:17 Patient Tobacco Use Status Never used Tobacco 12/10/23 11:17 e-Cigarette/Vaping Use Never Used 12/10/23 11:17 PHQ-9: PHQ-9 Score PHQ-9: Total score 0 12/10/23 11:30 Depression Screening Interpretation: Negative Thrive Assessment: Date of Thrive Assessment Date Thrive assessed 12/10/23 12/10/23 11:25 Currently or been in a relationship where the following occur: no concerns reported Const General: cooperative and healthy appearing Nutritional Appearance: well nourished Orientation/consciousness: patient oriented x3 Limitations: no limitations HENMT Head: Yes normal to inspection Eyes General: appearance normal, both eyes and all related structures Neck Neck: Yes normal visual inspection Chest Chest palpation & inspection: normal palpation of entire chest wall Resp Effort & Inspection: normal respiratory effort Neuro General: patient oriented x3 Office Procedures Flu Questionnaire Does the patient have a severe egg allergy?: No Does the patient have severe life threatening allergies?: No Does the patient have a fever or illness today?: No Has the patient ever had Guillain-[place] Syndrome?: No Has the patient ever had any past reaction to a flu shot?: No Immunizations flu vacc [id number] 6mos up(PF) 60 mcg(15 mcgx4)/0.5 mL IM syringe Performing Provider: Jhon Recio MD Performing Location: [facility] Administered by: LEIF Shane on 12/10/23 11:30 Dose Route Admin Location Dispensed Lot Number Expiration Date NDC Delivery Room Clerk 0.5 mL IM Left Deltoid 0.5 mL [id number] 05/29/24 [id number] [employer] VIS Given Date VIS Provided VIS Publication Date 12/10/23 Single Vaccine 21 Eligibility Eligibility Date Funding Source Not [facility] Eligible 12/10/23 Private Assessment and Plan Assessment & Plan (1) Mental and behavioral problem: Code(s): F48.9 - Nonpsychotic mental disorder, unspecified; F69 - Unspecified disorder of adult personality and behavior Plan: I am not sure what the diagnosis this patient carries. She seems well adjusted a describes behavioral and mental issues. I will research the matter further, look into her old records and asked the patient to come back for a reexamination. Orders: Orders Influenza [id number] Immunization 12/10/23 Z23 - Encounter for immunization Coding Level of Care Code Est Pt Level 3 (50912) Diagnoses Mental and behavioral problem F48.9; F69 Additional Codes RAYMUNDO-7 Assessment Billing - RAYMUNDO-7 Assessment Tool: RAYMUNDO-7 Assessment 10946 ([id number])
== END 2023-12-10 11:58 | disposition home or self-care (01) ==
PROVIDERS: PCP Internal Medicine; Visit Provider Internal Medicine
DX: Z23 Encounter for immunization (principal)
CPT/HCPCS: 90471; 90686; 99213

== ENCOUNTER 2023-12-31 09:13 | Outpatient (AMB) | payer OTHER, SELFPAY ==
--- NOTE | 2023-12-31 09:45 | A.OFFPC_ITS ---
Vital Signs 12/31/23 09:46 Height 5 ft 6 in Weight 264 lb 8 oz BMI 42.7 BP 120/82 Blood Pressure Location Lt brachial Position Sitting Pulse 92 Pulse Source Pulse Oximeter Pulse Oximetry (%) 97 Oxygen Delivery Method Room Air Intake Visit Reasons: Behavior Disorder f/u Intake Note: Patient is here to follow up on Behavior Disorder. Gas Meter Prover Required: No Knife Setter Grinder Machine: Not Required per policy Accompanied by: Self / Same As Patient Allergies No Known Allergies Allergy (Verified 01/03/24 19:31) Medication List - Last Reconciled 01/03/24 by Jhon Recio MD acetaminophen (Tylenol Extra Strength) 500 mg PO Q6H PRN lidocaine 5% (Lidoderm) 1 patch topical DAILY PRN MDD remove after 12 hours melatonin 5 mg PO BEDTIME PRN naproxen 500 mg PO BID PRN 10 days Tobacco use date assessed: 12/31/23 HPI Behavior Disorder f/u HPI Details 23-year-old female returns to the office for a follow-up visit. She would like to be evaluated for autism. Patient has had no testing in the past. Currently she is not working. Patient reports that she forgets things, has difficulty understanding things. She also wants to be tested for diabetes. She has ongoing back pain. Patient has family with whom she lives. [facility] Medical History Mental and behavioral problem Vaginal odor Obesity Anxiety Depression Surgical History Hx of oral surgery Family History Father No problems noted. Mother No problems noted. Social History Housing: Apartment Alcohol intake: never Patient Tobacco Use Status: Never used Tobacco e-Cigarette/Vaping Use: Never Used service: No Current occupational status: unemployed Current occupational exposures/hazards: No Cognitive needs: No Hearing needs: No Vision needs: Yes (glasses) Female Reproductive History Menstrual Age of Menarche: 10 Questionnaire Thrive Questionnaire Date Thrive assessed: 12/10/23 RAYMUNDO-7 AMB Questionnaire RAYMUNDO-7 Date RAYMUNDO - 7 assessed: 12/10/23 Source: Developed by Drs. Bernardino Angeles, Naty Augustin, Jarvis Verduzco and colleagues, with an educational ssuan from [employer]. Physical exam (Primary Care) Vital Signs: Last Vital Signs Pulse 92 12/31/23 09:46 BP 120/82 12/31/23 09:46 Pulse Ox 97 12/31/23 09:46 Oxygen Delivery Method Room Air 12/31/23 09:46 BMI result Body Mass Index 42.7 Tobacco/Smoking Status: Tobacco use Status Tobacco use date assessed 12/31/23 12/31/23 09:53 Patient Tobacco Use Status Never used Tobacco 12/31/23 09:53 e-Cigarette/Vaping Use Never Used 12/31/23 09:53 Thrive Assessment: Date of Thrive Assessment Date Thrive assessed 12/10/23 12/31/23 09:53 Const General: cooperative and healthy appearing Nutritional Appearance: well nourished Orientation/consciousness: patient oriented x3 Limitations: no limitations HENMT Head: Yes normal to inspection Eyes General: appearance normal, both eyes and all related structures Neck Neck: Yes normal visual inspection Chest Chest palpation & inspection: normal palpation of entire chest wall Resp Effort & Inspection: normal respiratory effort Neuro General: patient oriented x3 Assessment and Plan Assessment & Plan (1) PCOS (polycystic ovarian syndrome): Code(s): E28.2 - Polycystic ovarian syndrome Plan: Blood work has been ordered including A1c. (2) Obesity, morbid, BMI 40.0-49.9: Code(s): E66.01 - Morbid (severe) obesity due to excess calories Plan: Counseling for weight loss and exercise done. (3) Mental and behavioral problem: Code(s): F48.9 - Nonpsychotic mental disorder, unspecified; F69 - Unspecified disorder of adult personality and behavior Plan: A neuropsych referral was ordered last year by her previous PCP. Patient reports that she got no such referral. Will follow up with a referral department. Orders: Orders Basic Metabolic Panel 01/01/24 E28.2 - Polycystic ovarian syndrome Hemoglobin A1c 01/01/24 E28.2 - Polycystic ovarian syndrome Liver Panel 01/01/24 E28.2 - Polycystic ovarian syndrome Thyroid Stimulating Hormone 01/01/24 E28.2 - Polycystic ovarian syndrome UA and rflx microscopic 01/01/24 E28.2 - Polycystic ovarian syndrome Complete Blood Count no Diff 01/01/24 E28.2 - Polycystic ovarian syndrome Lipid Panel 01/01/24 E28.2 - Polycystic ovarian syndrome Coding Level of Care Code Est Pt Level 4 (80899) Diagnoses PCOS (polycystic ovarian syndrome) E28.2 Obesity, morbid, BMI 40.0-49.9 E66.01 Mental and behavioral problem F48.9; F69
[2023-12-31 09:46] VITALS: BP 120/82; PULSE 92; O2SAT 97; BMI 42.7
== END 2023-12-31 10:31 | disposition home or self-care (01) ==
PROVIDERS: PCP Internal Medicine; Visit Provider Internal Medicine
DX: E28.2 Polycystic ovarian syndrome (principal); E66.01 Morbid (severe) obesity due to excess calories; Z68.41 Body mass index [BMI] 40.0-44.9, adult; F48.9 Nonpsychotic mental disorder, unspecified; F69 Unspecified disorder of adult personality and behavior
CPT/HCPCS: 99214

== ENCOUNTER 2024-01-01 08:32 | Outpatient (REF) | payer OTHER, SELFPAY ==
[2024-01-01 09:58] LABS: Hematocrit 43.2 % (37.0-47.0); Hemoglobin 13.5 g/dl (12.0-16.0); Mean Corpuscular HGB Conc 31.3 g/dl (31.0-35.0); Mean Corpuscular Hemoglobin 26.4 pg (27.0-33.0); Mean Corpuscular Volume 84.4 fL (80.0-98.0); Mean Platelet Volume 11.9 fL (9.4-12.3); Platelet Count 297 X10*3/uL (160-400); Red Blood Count 5.12 X10*6/uL (4.20-5.50); Red Cell Distribution Width 13.7 % (11.0-16.0)
[2024-01-01 10:21] LABS: Appearance Urine Clear; Color Urine Yellow; Glucose Urine UA Negative (Negative); Leukocyte Esterase Urine Negative (Negative); Nitrite Urine Negative (Negative); Urine Blood Negative (Negative); Urine Ketones Negative (Negative); Urine Protein Negative (Neg-Trace)
[2024-01-01 10:55] LABS: Estimated Average Glucose 103 mg/dL; Hemoglobin A1c % 5.2 % (<6.0)
[2024-01-01 10:57] LABS: Alanine Aminotransferase 13 U/L (0-31); Albumin Level 3.9 g/dL (3.5-5.0); Alkaline Phosphatase 78 U/L (39-117); Anion Gap 11 (12-20); Aspartate Amino Transferase 14 U/L (5-31); Bilirubin Direct < 0.2 mg/dL (0.0-0.5); Bilirubin Total 0.2 mg/dL (0.0-1.0); Blood Urea Nitrogen 10 mg/dL (9-16); Carbon Dioxide 26 mmol/L (22-29); Chloride 105 mmol/L (96-108); Cholesterol 132 mg/dL (<200); Estimated Glomerular Filt Rate > 60; Glucose Random 82 mg/dL (60-115); HDL Cholesterol 38 mg/dL (>40); LDL Cholesterol Calculated 79 mg/dL (<100); Potassium 3.9 mmol/L (3.3-5.1); Sodium 138 mmol/L (135-145); Total Protein 7.3 g/dL (6.5-8.0); Triglycerides 79 mg/dL (<150)
[2024-01-01 11:00] LABS: Thyroid Stimulating Hormone 2.15 uIU/mL (0.32-4.0)
== END 2024-01-01 08:33 | disposition home or self-care (01) ==
LOC: HO.LAB 08:32
PROVIDERS: PCP Internal Medicine; Visit Provider Internal Medicine
DX: E28.2 Polycystic ovarian syndrome (principal)
CPT/HCPCS: 36415; 80048; 80061; 80076; 81003; 83036; 84443; 85027

== ENCOUNTER 2024-01-26 09:00 | Outpatient (RCR) | payer OTHER, SELFPAY ==
--- NOTE | 2024-01-12 09:54 | MHC.PT.EP ---
[facility] [place] Office [place] Office [place] Office [address] Markus Monsivais [address] [phone] F: [phone] F: [phone] F: [phone] F: [phone] Physical Therapy Plan of Care Date of Evaluation: 01/12/24 Date of Surgery: N/A Diagnosis: low back pain (RL) Assessment: pt is a 23 y/o female presenting to physical therapy w/ referring diagnosis of low back pain. I do question whether pt have underlying connective tissue disorder given her significant hypermobility. Impairments include pain, decreased range of motion, decreased strength, impaired functional mobility, impaired postural awareness, and altered ambulation mechanics. pt is a good candidate for skilled PT due to age, potential remediation of impairments, typical disease/condition progression and prognosis, comorbidities, and motivation. pt would benefit from skilled PT intervention to provide a tailored strengthening and stretching exercise program, functional training, gait training, postural re-training, neuromuscular re-education, modalities as needed for pain, equipment safety demonstration. Frequency and Duration: The patient will be seen 2x/wk for 4 wks Short Term Goals: pt will be I w/ HEP to promote self-management of condition. pt will demo proper sitting posture w/ lumbar roll to promote neutral spine w/ seated ADLs. Fci Goals: pt will report a statistically significant improvement in self-reported outcome measure, [place], to promote return to PLOF. pt will demo neutral spine w/ lifting activities and scientific associate to promote full return to sweeping/vacuuming. Treatment Plan: Modalities to reduce pain, spasms and effusion. Manual therapy to restore motion and function. Therapeutic exercise to improve strength and flexibility. Neuromuscular re-education for posture and balance. Therapeutic activities to return to functional activities of daily living. Electronically signed by: Chloé New PT, DPT Please sign and return to therapist. Thank you for your referral.
--- NOTE | 2024-02-04 10:46 | MHC.PT.DC ---
[facility] [place] Office [place] Office [place] Office [address] Markus Monsivais [address] [facility] [phone] F: [phone] F: [phone] F: [phone] F: [phone] Physical Therapy Discharge Report Diagnosis: low back pain (RL) Date of Surgery: N/A Date of Evaluation: 01/12/24 Date of Discharge: 02/04/24 Treatments to Date: 3 Cancellations to Date: 0 No Shows to Date: 0 Discharge Status: Improved Function Visit Non-compliance Discharge Summary: The patient was reporting an improvement in her back pain with a core and pelvic stability program. We also discussed the importance of postural awareness in sitting positions to reduce back pain. She no showed two appointments which per [facility] policy she is being discharged for non-compliance. Electronically signed by: Chloé New PT, DPT Please sign and return to therapist. Thank you for your referral.
== END 2024-02-04 10:47 | disposition home or self-care (01) ==
LOC: HO.PT 09:00
PROVIDERS: PCP Internal Medicine; Visit Provider Internal Medicine
DX: M54.50 Low back pain, unspecified (principal)
CPT/HCPCS: 97112; 97162; 97530

== ENCOUNTER 2024-02-11 09:19 | Emergency (ER) | payer OTHER, SELFPAY ==
[2024-02-11 09:23] VITALS: BP 116/68; PULSE 103; RESP 16; TEMP 37.1; O2SAT 96; BMI 42.3
[2024-02-11 09:37] VITALS: RESP 18
[2024-02-11 09:52] VITALS: BP 115/71; PULSE 85; RESP 14; TEMP 36.4; O2SAT 98
[2024-02-11 10:16] LABS: MANUAL DIFF FLAG NO
[2024-02-11 10:17] LABS: Basophils Percent Auto 0.4 % (0-2); Eosinophils Absolute Auto 0.1 X10*3/uL (0.0-0.4); Eosinophils Percent Auto 1.1 % (0-4); Hematocrit 42.6 % (37.0-47.0); Hemoglobin 13.7 g/dl (12.0-16.0); Imm Gran Abs Auto 0.02 X10*3/uL (0.00-0.03); Imm Gran Pct Auto 0.2 % (0.0-0.4); Lymphocytes Absolute Auto 2.4 X10*3/uL (1.2-4.9); Lymphocytes Percent Auto 25.9 % (20-40); Mean Corpuscular HGB Conc 32.2 g/dl (31.0-35.0); Mean Corpuscular Hemoglobin 26.8 pg (27.0-33.0); Mean Corpuscular Volume 83.2 fL (80.0-98.0); Mean Platelet Volume 11.2 fL (9.4-12.3); Monocytes Absolute Auto 0.6 X10*3/uL (0.1-1.2); Monocytes Percent Auto 6.1 % (2-11); Neutrophils Percent Auto 66.3 % (45-73); Platelet Count 247 X10*3/uL (160-400); Red Blood Count 5.12 X10*6/uL (4.20-5.50); Red Cell Distribution Width 13.8 % (11.0-16.0); White Blood Count 9.1 X10*3/uL (4.8-10.8)
[2024-02-11 10:49] LABS: Alanine Aminotransferase 16 U/L (0-31); Albumin Level 3.9 g/dL (3.5-5.0); Alkaline Phosphatase 74 U/L (39-117); Anion Gap 10 (12-20); Aspartate Amino Transferase 19 U/L (5-31); Bilirubin Direct 0.1 mg/dL (0.0-0.5); Bilirubin Total 0.3 mg/dL (0.0-1.0); Blood Urea Nitrogen 9 mg/dL (9-16); Calcium 9.5 mg/dL (8.4-10.2); Carbon Dioxide 26 mmol/L (22-29); Chloride 110 mmol/L (96-108); Creatinine Clr Calc Pharmacy 135.9; Estimated Glomerular Filt Rate > 60; Glucose Random 88 mg/dL (60-115); Lipase 26 U/L (8-78); Potassium 4.4 mmol/L (3.3-5.1); Sodium 142 mmol/L (135-145); Total Protein 7.5 g/dL (6.5-8.0)
[2024-02-11 10:54] LABS: Appearance Urine Clear; Color Urine Yellow; Glucose Urine UA Negative (Negative); Leukocyte Esterase Urine Negative (Negative); Nitrite Urine Negative (Negative); PH 5.5 (5.0-9.0); Specific Gravity - Urine >= 1.030 (1.005-1.025); Urine Blood Negative (Negative); Urine Ketones Trace mg/dL (Negative); Urine Protein Negative (Neg-Trace)
[2024-02-11 10:55] LABS: UPreg QC Valid YES; Urine Pregnancy NEGATIVE (NEGATIVE)
--- NOTE | 2024-02-11 10:59 | ED.ABDPAIN ---
HPI - Abdominal Pain General Chief Complaint: Abdominal Pain Stated Complaint: Abd pain Time Seen by Provider: 02/11/24 10:59 Source: patient Mode of arrival: ambulatory Limitations: no limitations History of Present Illness HPI narrative: 23 year old female with pmhx significant for anxiety, depression, obesity, PCOS presents to the ED today for evaluation epigastric abdominal pain x2 days. Pain is exacerbated with eating. Slowly resolves after eating. Endorses nausea without vomiting. States that the last couple of days she has had loose stools. Denies fever, chills, strep throat, chest pain, palpitations, constipation, flank pain, dysuria, hematuria. Denies known sick contacts. Denies previous abdominal surgeries. She has not been taking any OTC medications at home for symptoms. Denies recent travel. Denies recent antibiotic use. Denies excessive NSAID use. Related Data Previous Rx's Medication Instructions Recorded melatonin 5 mg tablet 5 mg PO BEDTIME PRN sleep #30 tabs 08/12/23 acetaminophen 500 mg tablet 500 mg PO Q6H PRN fever or pain 08/13/23 (Tylenol Extra Strength) #14 tabs lidocaine 5 % topical patch 1 patch topical DAILY PRN pain #30 08/13/23 (Lidoderm) ea naproxen 500 mg tablet 500 mg PO BID PRN pain 10 days #20 08/13/23 tabs ondansetron 4 mg disintegrating 4 mg PO DAILY PRN nausea and 02/11/24 tablet vomiting 5 days #10 tabs pantoprazole 20 mg tablet,delayed 20 mg PO DAILY 2 weeks #14 tabs 02/11/24 release (Protonix) Allergies Allergy/AdvReac Type Severity Reaction Status Date / Time No Known Allergies Allergy Verified 01/03/24 19:31 Review of Systems Review of Systems Constitutional: No fever, chills, fatigue, night sweats, weight changes ENT/Mouth: No ear pain, hearing loss, nasal congestion, sinus pain, rhinorrhea, sore throat Eyes: No eye pain, swelling, redness, vision changes, discharge Cardio: No chest pain, palpitations, MARQUEZ, orthopnea, peripheral edema Pulm: No SOB, cough, sputum, wheezing, dyspnea, hemoptysis GI: No vomiting, hematemesis, diarrhea, constipation, hematochezia, melena, + epigastric abdominal pain, + nausea : No irregular bleeding, dysuria, frequency, urgency, hesitancy, hematuria, flank pain, urinary flow changes, urinary incontinence or retention MSK: No back pain, neck pain, joint pain, myalgias Skin: No lesions, rashes Neuro: No weakness, numbness, paresthesias, LOC, dizziness, headache Psych: No anxiety/panic, depression, SI/HI, AH/VH All other systems reviewed and are negative. [facility] Past Medical History Attestation statement: The following information was validated with the patient. Source: old records reviewed and nursing notes reviewed Medical History Mental and behavioral problem Vaginal odor Obesity Anxiety Depression Surgical History Hx of oral surgery Family History Family History Father No problems noted. Mother No problems noted. Social History Social History Housing: Apartment Alcohol intake: never Patient Tobacco Use Status: Never used Tobacco Smoked in Last 30 Days: No e-Cigarette/Vaping Use: Never Used Use of substances other than those prescribed or required for medical reasons: No Advance Directives: No Advance Directives Information Provided: No Patient : No service: No Current occupational status: unemployed Current occupational exposures/hazards: No Cognitive needs: No Hearing needs: No Vision needs: Yes (glasses) Physical Exam ED Vital Signs: Vital Signs - 24 hr 02/11/24 09:23 02/11/24 09:37 02/11/24 09:52 Temperature 98.7 F 97.5 F Pulse Rate 103 H 85 Respiratory Rate 16 18 14 Blood Pressure 116/68 115/71 Pulse Oximetry 96 98 Oxygen Delivery Method Room Air Room Air 02/11/24 12:09 Temperature Pulse Rate 75 Respiratory Rate 18 Blood Pressure 118/78 Pulse Oximetry 100 Oxygen Delivery Method Room Air BMI result Body Mass Index 42.3 Vital signs stable, afebrile. Const General: cooperative, comfortable and no acute distress Nutritional Appearance: obese Orientation/consciousness: patient oriented x3 Limitations: no limitations HENMT Head: Yes normal to inspection, Yes No palpable skull fracture present, Yes normocephalic and Yes atraumatic Eyes General: appearance normal, both eyes and all related structures Pupils: Equal, round and reactive pupils present Neck Neck: Yes normal visual inspection, Yes full ROM, Yes no lymphadenopathy and Yes no meningeal signs Resp Effort & Inspection: normal respiratory effort and able to speak in complete sentences Auscultation: clear to auscultation bilaterally Cardio Rate: regular rate Rhythm: regular rhythm GI Other: + abdomen is soft, nondistended, mildly tender to palpation of the epigastric region, no rebound tenderness or guarding, normoactive bowel sounds x4 Inspection: Yes normal to inspection and Yes obesity General: Yes no CVA tenderness Back/Spine/Pelvis Back: no CVA tenderness Skin General skin exam: no rashes or lesions noted Neuro General: patient oriented x3 and no meningeal signs Cranial nerves: Yes Equal, round and reactive pupils present Extrem General: Yes normal to inspection and Yes no calf tenderness Course Course Course Narrative: 1330-- CBC without leukocytosis or anemia. No left shift. H&H stable. Chemistry without acute electrolyte abnormality requiring intervention. Renal function WNL. Liver function WNL. Lipase WNL. Urine without infection or . > on re-evaluation, patient endorses symptom improvement with GI cocktail. She states after she drank the GI cocktail, I burped really loud and began to feel better. No episodes of vomiting in ED. She is tolerating santos crackers and drinking water. I do not feel as though imaging of the abdomen is indicated at this time. As labs are unremarkable, I do not have concern for acute cholecystitis or other intra-abdominal pathology. I have suspicion for acid reflux vs peptic ulcer. Will start patient on Protonix. Advised to follow-up with PCP regarding today's visit. Patient has remained stable throughout ED visit today. Discussed worrisome signs and symptoms and when to return to the ED. All questions answered at this time. Patient is agreeable with disposition and stable for discharge. Medical Decision Making Medical Decision Making [facility] Narrative: 23 year old female with pmhx significant for anxiety, depression, obesity, PCOS presents to the ED today for evaluation epigastric abdominal pain x2 days. Vital signs stable, afebrile. She is nontoxic-appearing and in no acute distress. Lying on the exam bed comfortably. Obese abdomen, soft nondistended, mildly tender to palpation of the epigastric region, no rebound tenderness or guarding. Normoactive bowel sounds x4. No CVAT bilaterally. No calf tenderness bilaterally. Differential diagnosis includes viral syndrome, gastroenteritis, gastric ulcer, acid reflux. Lower suspicion for pancreatitis, cholecystitis, cholelithiasis, cholangitis, appendicitis, acute abdomen. Plan for labs, GI cocktail and re-evaluation. Differential Diagnosis Differential Diagnoses: The differential diagnosis associated with the presentation includes As above Admission/Observation Not indicated Lab Data MDM Lab Attestation statement: I reviewed the patient's lab results. As above pantoprazole 02/11/24 10:12 02/11/24 10:12 Labs: Lab Results 02/11/24 02/11/24 Range/Units 10:12 10:44 WBC 9.1 (4.8-10.8) X10*3/uL RBC 5.12 (4.20-5.50) X10*6/uL Hgb 13.7 (12.0-16.0) g/dl Hct 42.6 (37.0-47.0) % MCV 83.2 (80.0-98.0) fL MCH 26.8 L (27.0-33.0) pg MCHC 32.2 (31.0-35.0) g/dl RDW 13.8 (11.0-16.0) % Plt Count 247 (160-400) X10*3/uL MPV 11.2 (9.4-12.3) fL Immature Gran % (Auto) 0.2 (0.0-0.4) % Neut % (Auto) 66.3 (45-73) % Lymph % (Auto) 25.9 (20-40) % [place] % (Auto) 6.1 (2-11) % Eos % (Auto) 1.1 (0-4) % Baso % (Auto) 0.4 (0-2) % Lymph # (Auto) 2.4 (1.2-4.9) X10*3/uL [place] # (Auto) 0.6 (0.1-1.2) X10*3/uL Eos # (Auto) 0.1 (0.0-0.4) X10*3/uL Baso # (Auto) 0.0 (0.0-0.2) X10*3/uL Abs Immat Gran (auto) 0.02 (0.00-0.03) X10*3/uL Absolute Neuts (auto) 6.0 (2.0-8.3) x10*3/uL Absolute Nucleated RBC 0.000 (0.0-0.012) X10*3/uL Nucleated RBC % (auto) 0.0 (0.0-0.2) /100WBC Sodium 142 (135-145) mmol/L Potassium 4.4 (3.3-5.1) mmol/L Chloride 110 H (96-108) mmol/L Carbon Dioxide 26 (22-29) mmol/L Anion Gap 10 L (12-20) BUN 9 (9-16) mg/dL Creatinine 0.83 (0.5-1.4) mg/dL Estim Creat Clear Calc 135.9 Estimated GFR > 60 Random Glucose 88 (60-115) mg/dL Calcium 9.5 (8.4-10.2) mg/dL Total Bilirubin 0.3 (0.0-1.0) mg/dL Direct Bilirubin 0.1 (0.0-0.5) mg/dL AST 19 (5-31) U/L ALT 16 (0-31) U/L Alkaline Phosphatase 74 (39-117) U/L Total Protein 7.5 (6.5-8.0) g/dL Albumin 3.9 (3.5-5.0) g/dL Lipase 26 (8-78) U/L Urine Color Yellow Urine Appearance Clear Urine pH 5.5 (5.0-9.0) Ur Specific [place] >= 1.030 H (1.005-1.025) Urine Protein Negative (Neg-Trace) mg/dL Urine Glucose (UA) Negative (Negative) mg/dL Urine Ketones Trace (Negative) mg/dL Urine Blood Negative (Negative) Urine Nitrite Negative (Negative) Ur Leukocyte Esterase Negative (Negative) Urine Test NEGATIVE (NEGATIVE) External Record Review External record reviewed: Inpatient record, Office record, Outpatient record, Prior outpatient labs, Prior outpatient radiology and Primary care record Prescription Management I considered prescription management with: Other (Protonix, Zofran) Chronic Conditions Patient?s care impacted by: Other (PCOS, anxiety, obesity) Social Determinants Patient?s care significantly limited by Social Determinants of Health including: Other Social Determinant of Health Medications Administered Discontinued Medications Generic Name Dose Route Start Last Admin Trade Name Freq PRN Reason Stop Dose Admin Al Hydroxide/Mg Hydroxide 30 ml 02/11/24 11:02 02/11/24 12:07 Magnesium Hydrox/Alum Hydrox 30 Ml Oral.Susp PO 02/11/24 11:03 30 ml ONCE ONE Administration Belladonna Alkaloids/Phenobarbital 10 ml 02/11/24 11:02 02/11/24 12:06 Phenobarb/Hyoscy/Atropine/Scop 10 Ml Elixir PO 02/11/24 11:03 10 ml ONCE ONE Administration Ondansetron HCl 4 mg 02/11/24 11:02 02/11/24 12:07 Ondansetron Odt 4 Mg Tab.Rapdis TRANSLINGU 02/11/24 11:03 4 mg ONCE ONE Administration Discharge Plan Discharge Clinical Impression: Acid reflux disease Patient Disposition: Home, Self-Care Instructions: Gastroesophageal Reflux Disease (ED) Additional Instructions: Your labs today are reassuring. Your pain improved with medications today. Protonix is a medication that has been sent to your pharmacy. Take this once daily as prescribed for symptoms. Zofran as an antinausea medication that has been sent to your pharmacy. Take this as needed for nausea/vomiting. Avoid NSAIDS such as ibuprofen as this can irritate the stomach and increase risk of GI bleeding. Please follow-up with your PCP this week. Return to the ED with new or worsening symptoms. In the case of an emergency call 911. Prescriptions: New pantoprazole [Protonix] 20 mg tablet,delayed release (DR/EC) 20 mg PO DAILY 14 Days Qty: 14 0RF ondansetron 4 mg tablet,disintegrating 4 mg PO DAILY PRN (Reason: nausea and vomiting) 5 Days Qty: 10 0RF No Action acetaminophen [Tylenol Extra Strength] 500 mg tablet 500 mg PO Q6H PRN (Reason: fever or pain) Qty: 14 0RF lidocaine [Lidoderm] 5 % adhesive patch,medicated 1 patch topical DAILY MDD remove after 12 hours PRN (Reason: pain) Qty: 30 0RF Rx Instructions: leave on most painful area for up to 12 hrs naproxen 500 mg tablet 500 mg PO BID PRN (Reason: pain) 10 Days Qty: 20 0RF melatonin 5 mg tablet 5 mg PO BEDTIME PRN (Reason: sleep) Qty: 30 0RF Referrals: Jhon Recio MD [Primary Care Provider] - Stand Alone Forms: Work/School Release Interventions: ED Discharge Assessment Last Done: 02/11/24 13:49
[2024-02-11] MEDS: PHENobarb/Hyoscy/Atropine/Scop 10 ML ELIXIR PO (12:06)
[2024-02-11] MEDS: Magnesium Hydrox/Alum Hydrox 30 ML ORAL.SUSP PO (12:07)
[2024-02-11] MEDS: Ondansetron ODT 4 MG TAB.RAPDIS TRANSLINGU (12:07)
[2024-02-11 12:09] VITALS: BP 118/78; PULSE 75; RESP 18; O2SAT 100
== END 2024-02-11 13:53 | disposition home or self-care (01) ==
PROVIDERS: Emergency Provider Emergency Medicine; PCP Internal Medicine
DX: K21.9 Gastro-esophageal reflux disease without esophagitis (principal); R10.13 Epigastric pain; Z79.899 Other long term (current) drug therapy
CPT/HCPCS: 36415; 80048; 80076; 81003; 81025; 83690; 85025; 99283; 99284

== ENCOUNTER 2024-03-14 21:55 | Emergency (ER) | payer OTHER, SELFPAY ==
[2024-03-14 22:27] VITALS: BP 119/71; PULSE 89; RESP 18; TEMP 36.7; O2SAT 97; BMI 42.3
[2024-03-14 22:49] LABS: MANUAL DIFF FLAG NO
[2024-03-14 22:52] LABS: Basophils Absolute Auto 0.1 X10*3/uL (0.0-0.2); Basophils Percent Auto 0.6 % (0-2); Eosinophils Absolute Auto 0.2 X10*3/uL (0.0-0.4); Eosinophils Percent Auto 1.9 % (0-4); Hematocrit 41.1 % (37.0-47.0); Hemoglobin 13.1 g/dl (12.0-16.0); Imm Gran Abs Auto 0.04 X10*3/uL (0.00-0.03); Imm Gran Pct Auto 0.4 % (0.0-0.4); Lymphocytes Absolute Auto 3.5 X10*3/uL (1.2-4.9); Lymphocytes Percent Auto 32.6 % (20-40); Mean Corpuscular HGB Conc 31.9 g/dl (31.0-35.0); Mean Corpuscular Hemoglobin 26.8 pg (27.0-33.0); Mean Corpuscular Volume 84.2 fL (80.0-98.0); Mean Platelet Volume 11.5 fL (9.4-12.3); Monocytes Absolute Auto 0.6 X10*3/uL (0.1-1.2); Monocytes Percent Auto 5.8 % (2-11); Neutrophils Absolute Auto 6.2 x10*3/uL (2.0-8.3); Neutrophils Percent Auto 58.7 % (45-73); Platelet Count 274 X10*3/uL (160-400); Red Blood Count 4.88 X10*6/uL (4.20-5.50); Red Cell Distribution Width 14.1 % (11.0-16.0); White Blood Count 10.6 X10*3/uL (4.8-10.8)
[2024-03-14 23:06] LABS: Alanine Aminotransferase 16 U/L (0-31); Albumin Level 3.8 g/dL (3.5-5.0); Alkaline Phosphatase 81 U/L (39-117); Anion Gap 13 (12-20); Aspartate Amino Transferase 15 U/L (5-31); Bilirubin Total 0.2 mg/dL (0.0-1.0); Blood Urea Nitrogen 10 mg/dL (9-16); Calcium 9.5 mg/dL (8.4-10.2); Carbon Dioxide 22 mmol/L (22-29); Chloride 108 mmol/L (96-108); Creatinine Clr Calc Pharmacy 139.7; Estimated Glomerular Filt Rate > 60; Glucose Random 132 mg/dL (60-115); Lipase 29 U/L (8-78); Potassium 3.7 mmol/L (3.3-5.1); Sodium 139 mmol/L (135-145); Total Protein 7.1 g/dL (6.5-8.0)
[2024-03-14 23:14] LABS: HCG Quantitative < 2 mIU/mL
[2024-03-14 23:18] LABS: COVID-19 Test Negative (Negative); IDNOW Serial# 08D9AD1C
[2024-03-14 23:19] LABS: IDNOW Serial# 152EDE1D; Influenza A Negative (Negative); Influenza B2 Negative (Negative)
== END 2024-03-15 02:28 | disposition left against medical advice (07) ==
PROVIDERS: Emergency Provider Emergency Medicine; PCP Internal Medicine
DX: R10.9 Unspecified abdominal pain (principal)
CPT/HCPCS: 36415; 80053; 83690; 84702; 85025; 87502; 87635; 99281; 99283

== ENCOUNTER 2024-04-28 10:10 | Outpatient (AMB) | payer OTHER, SELFPAY ==
--- NOTE | 2024-04-28 10:37 | A.OFFPC_ITS ---
Vital Signs 04/28/24 10:38 Height 5 ft 6 in Weight 266 lb 6 oz BMI 43.0 BP 110/62 Blood Pressure Location Lt brachial Position Sitting Pulse 92 Pulse Source Pulse Oximeter Pulse Oximetry (%) 96 Oxygen Delivery Method Room Air Intake Visit Reasons: Annual Exam Intake Note: Patient is here today for a physical. 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 Design Painter: Not Required per policy Accompanied by: Self / Same As Patient Allergies No Known Allergies Allergy (Verified 04/28/24 13:30) Medication List - Last Reconciled 04/28/24 by Jhon Recio MD acetaminophen (Tylenol Extra Strength) 500 mg PO Q6H PRN fluoxetine 20 mg PO DAILY lidocaine 5% (Lidoderm) 1 patch topical DAILY PRN MDD remove after 12 hours melatonin 5 mg PO BEDTIME PRN naproxen 500 mg PO BID PRN 10 days ondansetron 4 mg PO DAILY PRN 5 days pantoprazole (Protonix) 20 mg PO DAILY 2 weeks Tobacco use date assessed: 12/31/23 Dental Screening Dental Screen Date: 12/10/23 HPI Annual Exam HPI Details 24-year-old female presents to the office requesting an annual physical. Patient is scheduled for neuropsychology evaluation later this month. Patient is also requesting nutrition consult to help her to lose weight. [facility] Medical History (Updated 04/28/24 @ 13:32 by Jhon Recio MD) PCOS (polycystic ovarian syndrome) Obesity, morbid, BMI 40.0-49.9 Mental and behavioral problem Anxiety Depression Surgical History Hx of oral surgery Family History Father No problems noted. Mother No problems noted. Other Mental health disorder Social History Housing: Apartment Alcohol intake: never Patient Tobacco Use Status: Never used Tobacco e-Cigarette/Vaping Use: Never Used Second Hand Smoke Exposure: No service: No Current occupational status: unemployed Current occupational exposures/hazards: No Cognitive needs: No Hearing needs: No Vision needs: Yes (glasses) Female Reproductive History Menstrual Age of Menarche: 10 Questionnaire Thrive Questionnaire Date Thrive assessed: 12/10/23 RAYMUNDO-7 AMB Questionnaire RAYMUNDO-7 Date RAYMUNDO - 7 assessed: 12/10/23 Source: Developed by DrsAlton Angeles, Naty Augustin, Jarvis Verduzco and colleagues, with an educational susan from [employer]. Physical exam (Primary Care) Vital Signs: Last Vital Signs Pulse 92 04/28/24 10:38 BP 110/62 04/28/24 10:38 Pulse Ox 96 04/28/24 10:38 Oxygen Delivery Method Room Air 04/28/24 10:38 Care Plan Goal for BP management: Blood pressure is in range. BMI result Body Mass Index 43.0 BMI Assessment/Plan discussion: High ( 1 lb per week weight loss suggested.) BMI High, discussed plan: lifestyle, weight reduction, dietary and physical activity Tobacco/Smoking Status: Tobacco use Status Tobacco use date assessed 12/31/23 04/28/24 10:44 Patient Tobacco Use Status Never used Tobacco 04/28/24 10:44 e-Cigarette/Vaping Use Never Used 04/28/24 10:44 Thrive Assessment: Date of Thrive Assessment Date Thrive assessed 12/10/23 04/28/24 10:44 Const General: cooperative and healthy appearing Nutritional Appearance: well nourished Orientation/consciousness: patient oriented x3 Limitations: no limitations HENMT Head: Yes normal to inspection Eyes General: appearance normal, both eyes and all related structures Neck Neck: Yes normal visual inspection Chest Chest palpation & inspection: normal palpation of entire chest wall Resp Effort & Inspection: normal respiratory effort Neuro General: patient oriented x3 Assessment and Plan Assessment & Plan (1) Obesity, morbid, BMI 40.0-49.9: Code(s): E66.01 - Morbid (severe) obesity due to excess calories Plan: patient was advised counseling on diet and exercise. A nutritional consult has been ordered. (2) Annual physical exam: Code(s): Z00.00 - Encounter for general adult medical examination without abnormal findings Plan: Blood work has been reviewed. Orders: Referrals Nutrition/Dietitian Referral E66.01 - Morbid (severe) obesity due to excess calories Coding Level of Care Code Est Pt Prev Care 18-39y(03605) Diagnoses Obesity, morbid, BMI 40.0-49.9 E66.01 Annual physical exam Z00.00
[2024-04-28 10:38] VITALS: BP 110/62; PULSE 92; O2SAT 96; BMI 43.0
== END 2024-04-28 11:21 | disposition home or self-care (01) ==
PROVIDERS: Visit Provider Internal Medicine
DX: Z00.00 Encounter for general adult medical examination without abnormal findings (principal); E66.01 Morbid (severe) obesity due to excess calories; Z68.41 Body mass index [BMI] 40.0-44.9, adult
CPT/HCPCS: 99395

== ENCOUNTER 2024-05-02 09:26 | Outpatient (AMB) | payer OTHER, SELFPAY ==
--- NOTE | 2024-05-02 09:39 | A.OFFVIS_ITS ---
VS Expanded 05/02/24 09:41 05/04/24 09:38 Height 5 ft 6 in 5 ft 6 in Weight 263 lb 3.711 oz 263 lb BMI 42.5 42.4 Intake Visit Reasons: Morbid obesity/ CONFIRMED Allergies No Known Allergies Allergy (Verified 04/28/24 13:30) Nutrition Presentation Details: Pt presents for MNT for morbid Obesity. The Pt was referred by PCP, Dr. Recio Pt is interested in diet modifications for weight loss Typical meal 6-9 Breakfast Cereal or pancakes or bakery bread with cheese and bologna, orange juice or reg soda 4 pm : rice/beans, chicken regular 6-7 pm : rice/dow/meat, orange juice food frequency fruits: 0-1/d vegetable:not including dairy: 2x/day (in cereal , mix in the foods) fish :not including starches > 20 serving /d exercise: low cardio exercise 1x/daily (youtube) BS Monitoring Most Recent Diabetes Results: Cholesterol 132 mg/dL (<200) 01/01/24 HDL Cholesterol 38 mg/dL (>40) L 01/01/24 Triglycerides 79 mg/dL (<150) 01/01/24 Creatinine 0.80 mg/dL (0.5-1.4) 03/14/24 Blood Urea Nitrogen 10 mg/dL (9-16) 03/14/24 Sodium 139 mmol/L (135-145) 03/14/24 Potassium 3.7 mmol/L (3.3-5.1) 03/14/24 Chloride 108 mmol/L (96-108) 03/14/24 Carbon Dioxide 22 mmol/L (22-29) 03/14/24 Calcium 9.5 mg/dL (8.4-10.2) 03/14/24 AST 15 U/L (5-31) 03/14/24 ALT 16 U/L (0-31) 03/14/24 Total Protein 7.1 g/dL (6.5-8.0) 03/14/24 Albumin 3.8 g/dL (3.5-5.0) 03/14/24 [id number].Jeor Equation Height: 5 ft 6 in Weight: 263 lb Resting Metabolic Rate: 1950.58 Calculated Activity Level: Sedentary Calories Needed to Maintain Weight: 2340.70 Diagnosis Nutrition problem #1: excessive energy intake As related to (etiology) #1: diagnosis As evidenced by (sign/symptom) #1: knowledge deficit of diet Monitoring/Goals Nutrition problem monitoring: level of knowledge/skill and weight Learning/Education Stages of change: preparation [facility] Medical History (Updated 04/28/24 @ 13:32 by Jhon Recio MD) PCOS (polycystic ovarian syndrome) Obesity, morbid, BMI 40.0-49.9 Mental and behavioral problem Anxiety Depression Surgical History Hx of oral surgery Family History Father No problems noted. Mother No problems noted. Other Mental health disorder Social History Housing: Apartment Alcohol intake: never Patient Tobacco Use Status: Never used Tobacco e-Cigarette/Vaping Use: Never Used Second Hand Smoke Exposure: No service: No Current occupational status: unemployed Current occupational exposures/hazards: No Cognitive needs: No Hearing needs: No Vision needs: Yes (glasses) Female Reproductive History Menstrual Age of Menarche: 10 Assessment & Plan Assessment & Plan (1) Obesity, morbid, BMI 40.0-49.9: Code(s): E66.01 - Morbid (severe) obesity due to excess calories Category: Medical Plan: Wt: 119 Kg (04/2024 ) Est kcal needs as per MSJ: 2300 (40% carb, 30% protein/fat) Est fluid needs as per 25-30 ml/d: 3600 Est prot per day as per 1 g/kg bw: 119 Recommend fiber intake : 8-10 g per day and gradually increase to 25-28 g per day for women and 35-38 g for men or as tolerated Recommend sodium intake per day : less than 1500 mg less than 2000 mg Educated patient on: ( R = reviewed V = verbalizes understanding N/R = needs review N/A = not applicable * Food sources of carbohydrate, adequate serving sizes and its role in various health conditions: R * Differences between complex carbohydrates a simple carbohydrates, role of fiber in diet: R * Lean protein sources of foods: R V NR * Differences between types of fats and role in diet (mono on saturated fat fatty acids, saturated fatty acids, trans fats): R V N/R * Food sources of sodium in salt and healthy modifications for heart health in kidney health: R V R/V * Vitamins and minerals: R V N/R * Healthy plate method concept: R * Physical activity: Benefits a precaution: R V N/R Patient Instructions: HAve water/fruit/herb infused water in place of juices drinks/regular soda Follow healthy plate method at dinner 6 times a week Coding Level of Care Code Nutr Indiv Intake (37417) Diagnoses Obesity, morbid, BMI 40.0-49.9 E66.01 Time Spent (min) 30
[2024-05-02 09:41] VITALS: BMI 42.5
[2024-05-04 09:38] VITALS: BMI 42.4
== END 2024-05-02 10:11 | disposition home or self-care (01) ==
PROVIDERS: PCP Internal Medicine; Visit Provider Dietitian, Registered
DX: E66.01 Morbid (severe) obesity due to excess calories (principal)

== ENCOUNTER → 2024-05-02 09:26 | Outpatient (BNVA) | payer OTHER, SELFPAY | PROVIDERS: PCP Internal Medicine; Visit Provider Dietitian, Registered | DX: E66.01 Morbid (severe) obesity due to excess calories (principal); Z68.41 Body mass index [BMI] 40.0-44.9, adult; Z71.3 Dietary counseling and surveillance | CPT/HCPCS: 97802 ==

== ENCOUNTER 2024-05-25 04:54 | Emergency (ER) | payer OTHER, SELFPAY ==
--- NOTE | ~2024-05-25 | CT_ITS ---
EXAMINATION: CT ABDOMEN AND PELVIS WITHOUT CONTRAST CLINICAL INFORMATION: Right flank pain. COMPARISON: None available. TECHNIQUE: Multidetector volumetric imaging was performed from the superior aspect of the liver through the pubic symphysis. Sagittal and coronal reformatted images were obtained on the technologist's workstation. This CT examination was performed using dose optimization techniques as appropriate, variously including the following: *Automated exposure control *Adjustment of mA and/or kV according to patient size (this includes techniques or standardized protocols for targeted exams where dose is matched to indication/reason for exam; i.e. extremities or head) *Use of iterative reconstruction technique DLP: 991 mGy-cm FINDINGS: LUNG BASES: The visualized lung bases are unremarkable. LIVER, GALLBLADDER, AND BILIARY TREE: The liver is normal in size, shape, and attenuation. No focal hepatic lesion or biliary ductal dilatation is present. The gallbladder is unremarkable with no evidence of radiopaque gallstones, gallbladder wall thickening, or obvious pericholecystic inflammatory changes. PANCREAS: Unremarkable. SPLEEN: Unremarkable. ADRENAL GLANDS: Unremarkable. KIDNEYS AND URETERS: There is mild right hydroureteronephrosis with trace perirenal fat stranding, produced by a 3 mm calculus at the right ureterovesical junction. No additional renal or ureteral calculi. Kidneys normal in size and contour. No renal lesions. No left-sided nephrolithiasis. BLADDER: Decompressed. No wall thickening. GASTROINTESTINAL TRACT: Stomach, small bowel, and colon are normal in caliber. No bowel wall thickening or surrounding inflammatory changes. Appendix is normal. No intraperitoneal free fluid or free air. ABDOMINAL WALL: No significant hernia is appreciated. LYMPH NODES: Normal. VASCULAR: Unremarkable. PELVIC VISCERA: The uterus and adnexa are unremarkable. OSSEOUS STRUCTURES: No acute osseous abnormalities. Lumbar spine appears relatively well-preserved aside from a few Schmorl's nodes. CT/CT abdomen pelvis wo IV con IMPRESSION: A 3 mm calculus at the right ureterovesical junction produces mild right hydroureteronephrosis.
[2024-05-25 05:02] VITALS: BP 136/88; PULSE 83; O2SAT 98; BMI 47.0
[2024-05-25 05:21] LABS: Basophils Percent Auto 0.3 % (0-2); Eosinophils Absolute Auto 0.2 X10*3/uL (0.0-0.4); Eosinophils Percent Auto 1.4 % (0-4); Hematocrit 40.8 % (37.0-47.0); Hemoglobin 13.3 g/dl (12.0-16.0); Imm Gran Abs Auto 0.04 X10*3/uL (0.00-0.03); Imm Gran Pct Auto 0.3 % (0.0-0.4); Lymphocytes Absolute Auto 3.5 X10*3/uL (1.2-4.9); Lymphocytes Percent Auto 29.8 % (20-40); MANUAL DIFF FLAG NO; Mean Corpuscular HGB Conc 32.6 g/dl (31.0-35.0); Mean Corpuscular Hemoglobin 27.3 pg (27.0-33.0); Mean Corpuscular Volume 83.8 fL (80.0-98.0); Mean Platelet Volume 11.9 fL (9.4-12.3); Monocytes Absolute Auto 0.7 X10*3/uL (0.1-1.2); Monocytes Percent Auto 5.8 % (2-11); Neutrophils Absolute Auto 7.3 x10*3/uL (2.0-8.3); Neutrophils Percent Auto 62.4 % (45-73); Platelet Count 248 X10*3/uL (160-400); Red Blood Count 4.87 X10*6/uL (4.20-5.50); White Blood Count 11.8 X10*3/uL (4.8-10.8)
[2024-05-25] MEDS: Ketorolac Tromethamine 30 MG/ML VIAL IVPUSH (05:35)
[2024-05-25] MEDS: Morphine Sulfate 2 MG/ML CARTRIDGE IVPUSH (05:35)
[2024-05-25] MEDS: 0.9 % Sodium Chloride 1,000 ML 999 ML IV (05:36)
[2024-05-25 05:39] LABS: Alanine Aminotransferase 15 U/L (0-31); Albumin Level 3.9 g/dL (3.5-5.0); Alkaline Phosphatase 69 U/L (39-117); Anion Gap 15 (12-20); Aspartate Amino Transferase 24 U/L (5-31); Bilirubin Total 0.3 mg/dL (0.0-1.0); Blood Urea Nitrogen 11 mg/dL (9-16); Calcium 9.3 mg/dL (8.4-10.2); Carbon Dioxide 19 mmol/L (22-29); Chloride 110 mmol/L (96-108); Creatinine Clr Calc Pharmacy 118.9; Estimated Glomerular Filt Rate > 60; Glucose Random 134 mg/dL (60-115); Lipase 21 U/L (8-78); Potassium 3.9 mmol/L (3.3-5.1); Sodium 140 mmol/L (135-145); Total Protein 7.4 g/dL (6.5-8.0)
[2024-05-25 05:44] LABS: HCG Quantitative < 2 mIU/mL
[2024-05-25 06:00] VITALS: BP 141/86; PULSE 73; RESP 20; TEMP 36.6; O2SAT 99
--- NOTE | 2024-05-25 06:35 | ED_ITS ---
HPI - Abdominal Pain General Chief Complaint: Abdominal Pain Stated Complaint: Urinating frequently,lower ABD pain, Time Seen by Provider: 05/25/24 06:33 Source: patient and RN notes reviewed Mode of arrival: ambulatory Limitations: no limitations History of Present Illness ED Provider: Brigida Paulino PA-C HPI narrative: This is a 24-year-old female, with a history of frequent UTIs, who presents emergency department with sudden onset suprapubic pain, urinary frequency, urgency, and dysuria. Patient states that she awoke from her sleep with suprapubic pressure. She states that she has had urinary frequency and urgency since. She states that she also had some right-sided flank pain. Patient reports history of UTIs and symptoms feel slightly similar. Patient denies any fevers, chills, chest pain, shortness of breath, abdominal pain, nausea, vomiting or diarrhea. Denies taking any medications at home prior to her arrival. No other complaints or concerns at this time. MD elicited complaint: abdominal pain and flank pain Pertinent past history: none Onset (ago): day(s) Pain Consistency: constant Location: none Quality: aching Migration to: no migration Exacerbating factors: nothing Relieving factors: nothing Associated symptoms: denies other symptoms Related Data Home Medications ?Medication ?Instructions ?Recorded ?Confirmed fluoxetine 20 mg capsule 20 mg PO DAILY 04/28/24 04/28/24 Previous Rx's ?Medication ?Instructions ?Recorded melatonin 5 mg tablet 5 mg PO BEDTIME PRN sleep #30 tabs 08/12/23 acetaminophen 500 mg tablet 500 mg PO Q6H PRN fever or pain 08/13/23 (Tylenol Extra Strength) #14 tabs lidocaine 5 % topical patch 1 patch topical DAILY PRN pain #30 08/13/23 (Lidoderm) ea naproxen 500 mg tablet 500 mg PO BID PRN pain 10 days #20 08/13/23 tabs ondansetron 4 mg disintegrating 4 mg PO DAILY PRN nausea and 02/11/24 tablet vomiting 5 days #10 tabs pantoprazole 20 mg tablet,delayed 20 mg PO DAILY 2 weeks #14 tabs 02/11/24 release (Protonix) naproxen 500 mg tablet 500 mg PO BID PRN pain #30 tabs 05/25/24 oxycodone 5 mg tablet 5 mg PO Q6H pain #10 tabs 05/25/24 sulfamethoxazole 800 1 tab PO BID 10 days #20 tabs 05/25/24 mg-trimethoprim 160 mg tablet (Bactrim DS) tamsulosin 0.4 mg capsule (Flomax) 0.4 mg PO DAILY 2 weeks #14 caps 05/25/24 Allergies Allergy/AdvReac Type Severity Reaction Status Date / Time No Known Allergies Allergy Verified 05/25/24 05:06 Review of Systems Review of Systems Yes all other systems are reviewed and are negative Constitutional: Reports as per [facility] Past Medical History Medical History (Updated 05/25/24 @ 10:42 by KRYS Alvarado) PCOS (polycystic ovarian syndrome) Obesity, morbid, BMI 40.0-49.9 Mental and behavioral problem Anxiety Depression Surgical History Hx of oral surgery Family History Family History Father No problems noted. Mother No problems noted. Other Mental health disorder Social History Social History Housing: Apartment Alcohol intake: never Patient Tobacco Use Status: Never used Tobacco Smoked in Last 30 Days: No e-Cigarette/Vaping Use: Never Used Second Hand Smoke Exposure: No Use of substances other than those prescribed or required for medical reasons: No Advance Directives: No Advance Directives Information Provided: No Do you have a plan to hurt others: No Plan service: No Current occupational status: unemployed Current occupational exposures/hazards: No Cognitive needs: No Hearing needs: No Vision needs: Yes (glasses) Physical Exam ED Vital Signs: Vital Signs - 24 hr 05/25/24 06:00 05/25/24 06:58 05/25/24 08:00 Temperature 97.9 F 97.7 F 97.4 F Pulse Rate 73 77 80 Respiratory Rate 20 16 12 Blood Pressure 141/86 H 116/69 102/84 Pulse Oximetry 99 97 100 Oxygen Delivery Method Room Air Room Air Room Air 05/25/24 10:00 Temperature 98.3 F Pulse Rate 77 Respiratory Rate 14 Blood Pressure 107/50 L Pulse Oximetry 99 Oxygen Delivery Method Room Air BMI result Body Mass Index 47.0 Const General: cooperative, comfortable and no acute distress Orientation/consciousness: patient oriented x3 Limitations: no limitations HENUT Head: Yes normal to inspection, Yes normocephalic and Yes atraumatic Ears: hearing grossly normal bilaterally General nose exam: Normal external nose present Face and sinus: Yes normal facial exam Mouth: Normal oral and palatal mucosa present, oropharynx normal and moist mucous membranes Throat: Yes posterior oropharynx normal Eyes General: appearance normal, both eyes and all related structures Eyelids: Yes eyelids normal Conjunctivae: conjunctivae normal Sclerae: sclerae normal Pupils: Equal, round and reactive pupils present EOM: EOMs intact bilaterally Neck Neck: Yes normal visual inspection, Yes full ROM and Yes no lymphadenopathy Lymphatic: no lymphadenopathy noted Chest Chest palpation & inspection: normal inspection of the chest Resp Effort & Inspection: normal respiratory effort and able to speak in complete sentences Auscultation: clear to auscultation bilaterally, no crackles, no rales, no rhonchi and no wheezes Cardio Rate: regular rate Rhythm: regular rhythm Heart sounds: S1 normal heart sound present and S2 normal heart sound present GI Other: Suprapubic tenderness on examination. No rebound or guarding. Normoactive bowel sounds present in all 4 quadrants. No CVA tenderness Inspection: Yes normal to inspection General: Yes no CVA tenderness Back/Spine/Pelvis Back: no CVA tenderness Skin General skin exam: no rashes or lesions noted Trauma: no lacerations or abrasions Wounds: no wounds Neuro General: patient oriented x3 and moves all extremities Cranial nerves: Yes Equal, round and reactive pupils present Extrem General: Yes normal to inspection Right upper extremity: normal to inspection Left upper extremity: normal to inspection Right lower extremity: normal to inspection Left lower extremity: normal to inspection Course Reevaluation(s) Reevaluation #1: Patient re-evaluated, feeling better after receiving IV fluids. CT scan returns revealing a 3 mm calculus at the right UVJ with mild right hydroureter nephrosis and some trace perirenal fat stranding. Patient also has evidence of a urinary tract infection. Given complicated obstructive uropathy with associated cystitis, will get recommendations from Dr. Castaneda, urologist for further recommendations. Page sent out. Time: 09:53 Reevaluation #2: [place] back from Dr. Nation, who recommends 10 day course of Bactrim DS b.i.d., tamsulosin, naproxen and oxycodone. Discussed findings and workup with patient as well as treatment plan. She understands and agrees with plan. She was given return precautions. She understands and is stable for discharge Time: 10:50 Medical Decision Making Medical Decision Making [facility] Narrative: This is a 24-year-old female who presents emergency department with complaints of acute onset lower abdominal pain, dysuria, urgency, frequency since 3:00 a.m. this morning. Patient also states that she has had some right-sided flank pain. On examination, patient mildly hypertensive at 141/86. She is nontoxic appearing, afebrile, and otherwise appears well. She does have mild suprapubic tenderness on examination. No rebound or guarding. Differential diagnoses include obstructive uropathy, acute cystitis, pyelonephritis, nephrolithiasis. Given presentation, will obtain labs, UA, CT abdomen and pelvis. Differential Diagnosis Differential Diagnoses: The differential diagnosis associated with the presentation includes See aboveEscalation of care including admission/observation considered however given workup today not warranted at this time. Admission/Observation Consideration of admission/observation: Escalation of care including admission/observation considered Consult Healthcare Provider Management of the patient was discussed with: [employer] Supervisor Dr. Nation, urology - see course comment Lab Data MDM Lab Attestation statement: I reviewed the patient's lab results. Slight leukocytosis at 11.8, creatinine 0.9, slightly increased from baseline at 0.8. Slight hyperglycemia at 1:34 a.m., urine with large blood, leuk esterases, and rbc's. 05/25/24 05:16 05/25/24 05:16 Labs: Lab Results 05/25/24 05/25/24 Range/Units 05:16 08:15 WBC 11.8 H (4.8-10.8) X10*3/uL RBC 4.87 (4.20-5.50) X10*6/uL Hgb 13.3 (12.0-16.0) g/dl Hct 40.8 (37.0-47.0) % MCV 83.8 (80.0-98.0) fL MCH 27.3 (27.0-33.0) pg MCHC 32.6 (31.0-35.0) g/dl RDW 14.0 (11.0-16.0) % Plt Count 248 (160-400) X10*3/uL MPV 11.9 (9.4-12.3) fL Immature Gran % (Auto) 0.3 (0.0-0.4) % Neut % (Auto) 62.4 (45-73) % Lymph % (Auto) 29.8 (20-40) % [place] % (Auto) 5.8 (2-11) % Eos % (Auto) 1.4 (0-4) % Baso % (Auto) 0.3 (0-2) % Lymph # (Auto) 3.5 (1.2-4.9) X10*3/uL Ector # (Auto) 0.7 (0.1-1.2) X10*3/uL Eos # (Auto) 0.2 (0.0-0.4) X10*3/uL Baso # (Auto) 0.0 (0.0-0.2) X10*3/uL Abs Immat Gran (auto) 0.04 H (0.00-0.03) X10*3/uL Absolute Neuts (auto) 7.3 (2.0-8.3) x10*3/uL Absolute Nucleated RBC 0.000 (0.0-0.012) X10*3/uL Nucleated RBC % (auto) 0.0 (0.0-0.2) /100WBC Sodium 140 (135-145) mmol/L Potassium 3.9 (3.3-5.1) mmol/L Chloride 110 H (96-108) mmol/L Carbon Dioxide 19 L (22-29) mmol/L Anion Gap 15 (12-20) BUN 11 (9-16) mg/dL Creatinine 0.90 (0.5-1.4) mg/dL Estim Creat Clear Calc 118.9 Estimated GFR > 60 Random Glucose 134 H (60-115) mg/dL Calcium 9.3 (8.4-10.2) mg/dL Total Bilirubin 0.3 (0.0-1.0) mg/dL AST 24 (5-31) U/L ALT 15 (0-31) U/L Alkaline Phosphatase 69 (39-117) U/L Total Protein 7.4 (6.5-8.0) g/dL Albumin 3.9 (3.5-5.0) g/dL Lipase 21 (8-78) U/L Beta HCG, Quant < 2 mIU/mL Urine Color Yellow Urine Appearance Clear Urine pH 5.5 (5.0-9.0) Ur Specific [place] 1.015 (1.005-1.025) Urine Protein Negative (Neg-Trace) mg/dL Urine Glucose (UA) Negative (Negative) mg/dL Urine Ketones Negative (Negative) mg/dL Urine Blood Large (3+) H (Negative) Urine Nitrite Negative (Negative) Ur Leukocyte Esterase Trace H (Negative) Urine RBC 11-20 H (0-2) /HPF Urine WBC 0-5 (0-5) /HPF Ur Squamous Epith Cells 0-2 (0-2) /HPF Urine Bacteria None Seen (None Seen) Hyaline Casts 0-2 (0-2) /LPF Radiology Impression Discussion of test interpretation with radiology: I have reviewed the radiologist's reading. Radiologist Impression: CT/CT abdomen pelvis wo IV con IMPRESSION: A 3 mm calculus at the right ureterovesical junction produces mild right hydroureteronephrosis. Dictated By: Ian Arcos MD Medications Administered Discontinued Medications Generic Name Dose Route Start Last Admin Trade Name Freq PRN Reason Stop Dose Admin Sodium Chloride 1,000 mls @ 999 mls/hr 05/25/24 05:28 05/25/24 06:45 Ns IV 05/25/24 06:28 Infused .Q1H1M ONE Infusion Ketorolac Tromethamine 30 mg 05/25/24 05:28 05/25/24 05:35 Ketorolac Tromethamine 30 Mg/Ml Vial IVPUSH 05/25/24 05:29 30 mg ONCE ONE Administration Morphine Sulfate 2 mg 05/25/24 05:28 05/25/24 05:35 Morphine Sulfate 2 Mg/Ml Cartridge IVPUSH 05/25/24 05:29 2 mg ONCE ONE Administration Protocol Discharge Plan Discharge Clinical Impression: UTI (urinary tract infection), Calculus, renal Patient Disposition: Home, Self-Care Instructions: Kidney Stones (ED), Urinary Tract Infection in Women (ED), How to Strain Your Urine (ED) Additional Instructions: You were seen in the emergency department due to abdominal pain and urinary symptoms. You have a urinary tract infection as well as a kidney stone. I am placing you on multiple medications to treat your symptoms. Bactrim ds is a antibiotic. Please take prescribed antibiotic twice a day for the next 10 days. Finish the entire course even if your symptoms improve. Flomax is a medication that helps with removing the kidney stone. Take this as prescribed. You may take naproxen 500 mg twice a day as needed for [id number] pain. You may take oxycodone as needed for severe pain only. Please be advised that this can cause drowsiness, do not drink alcohol or drive while taking this medication. Please be advised that oxycodone can become addictive, therefore only use as needed for severe pain only. If any new or worsening symptoms occur including but not limited to fevers, chills, worsening pain, please return for re-evaluation. Follow-up with the urologist, call today to make an appointment. Prescriptions: New tamsulosin [Flomax] 0.4 mg capsule 0.4 mg PO DAILY 14 Days Qty: 14 0RF sulfamethoxazole-trimethoprim [Bactrim DS] 800-160 mg tablet 1 tab PO BID 10 Days Qty: 20 0RF naproxen 500 mg tablet 500 mg PO BID PRN (Reason: pain) Qty: 30 0RF oxycodone 5 mg tablet 5 mg PO Q6H Qty: 10 0RF Rx Instructions: Partial Fill upon patient request. No Action pantoprazole [Protonix] 20 mg tablet,delayed release (DR/EC) 20 mg PO DAILY 14 Days Qty: 14 0RF ondansetron 4 mg tablet,disintegrating 4 mg PO DAILY PRN (Reason: nausea and vomiting) 5 Days Qty: 10 0RF acetaminophen [Tylenol Extra Strength] 500 mg tablet 500 mg PO Q6H PRN (Reason: fever or pain) Qty: 14 0RF lidocaine [Lidoderm] 5 % adhesive patch,medicated 1 patch topical DAILY MDD remove after 12 hours PRN (Reason: pain) Qty: 30 0RF Rx Instructions: leave on most painful area for up to 12 hrs naproxen 500 mg tablet 500 mg PO BID PRN (Reason: pain) 10 Days Qty: 20 0RF melatonin 5 mg tablet 5 mg PO BEDTIME PRN (Reason: sleep) Qty: 30 0RF fluoxetine 20 mg capsule 20 mg PO DAILY Referrals: [facility] [Provider Group] Print Language: Guatemalan
--- NOTE | 2024-05-25 06:39 | PC.NURSE ---
security called to take beloning to [facility]
[2024-05-25 06:58] VITALS: BP 116/69; PULSE 77; RESP 16; TEMP 36.5; O2SAT 97
[2024-05-25 08:00] VITALS: BP 102/84; PULSE 80; RESP 12; TEMP 36.3; O2SAT 100
[2024-05-25 08:22] LABS: Appearance Urine Clear; Color Urine Yellow; Glucose Urine UA Negative (Negative); Leukocyte Esterase Urine Trace (Negative); Nitrite Urine Negative (Negative); PH 5.5 (5.0-9.0); Specific Gravity - Urine 1.015 (1.005-1.025); UMIC TRIGGER UACC YES; Urine Blood Large (3+) (Negative); Urine Ketones Negative (Negative); Urine Protein Negative (Neg-Trace)
[2024-05-25 08:25] LABS: Bacteria Urine None Seen (None Seen); Hyaline Casts Urine 0-2 /LPF (0-2); Squamous Epithelial Cell Urine 0-2 /HPF (0-2); WBC Urine 0-5 /HPF (0-5)
[2024-05-25 10:00] VITALS: BP 107/50; PULSE 77; RESP 14; TEMP 36.8; O2SAT 99
[2024-05-25 11:00] VITALS: BP 107/50; PULSE 77; RESP 14; TEMP 36.8; O2SAT 99
== END 2024-05-25 11:01 | disposition home or self-care (01) ==
PROVIDERS: Emergency Provider Emergency Medicine
DX: R10.30 Lower abdominal pain, unspecified (principal); R35.0 Frequency of micturition; R30.0 Dysuria; N39.0 Urinary tract infection, site not specified; N20.0 Calculus of kidney
CPT/HCPCS: 36415; 74176; 80053; 81001; 83690; 84702; 85025; 96361; 96374; 96375; 99284; 99285; J1885; J2270

== ENCOUNTER 2024-05-30 09:21 | Outpatient (REF) | payer OTHER, SELFPAY ==
[2024-05-30 09:46] LABS: MANUAL DIFF FLAG NO
[2024-05-30 10:33] LABS: Basophils Percent Auto 0.6 % (0-2); Eosinophils Absolute Auto 0.1 X10*3/uL (0.0-0.4); Eosinophils Percent Auto 1.6 % (0-4); Hematocrit 44.7 % (37.0-47.0); Hemoglobin 14.2 g/dl (12.0-16.0); Imm Gran Abs Auto 0.01 X10*3/uL (0.00-0.03); Imm Gran Pct Auto 0.1 % (0.0-0.4); Lymphocytes Absolute Auto 2.2 X10*3/uL (1.2-4.9); Lymphocytes Percent Auto 32.7 % (20-40); Mean Corpuscular HGB Conc 31.8 g/dl (31.0-35.0); Mean Corpuscular Hemoglobin 27.2 pg (27.0-33.0); Mean Corpuscular Volume 85.5 fL (80.0-98.0); Monocytes Absolute Auto 0.4 X10*3/uL (0.1-1.2); Monocytes Percent Auto 6.1 % (2-11); Neutrophils Percent Auto 58.9 % (45-73); Platelet Count 270 X10*3/uL (160-400); Red Blood Count 5.23 X10*6/uL (4.20-5.50); Red Cell Distribution Width 13.7 % (11.0-16.0); White Blood Count 6.7 X10*3/uL (4.8-10.8)
[2024-05-30 10:54] LABS: Alanine Aminotransferase 15 U/L (0-31); Albumin Level 4.2 g/dL (3.5-5.0); Alkaline Phosphatase 69 U/L (39-117); Anion Gap 12 (12-20); Aspartate Amino Transferase 17 U/L (5-31); Bilirubin Total 0.3 mg/dL (0.0-1.0); Blood Urea Nitrogen 9 mg/dL (9-16); Calcium 9.7 mg/dL (8.4-10.2); Carbon Dioxide 24 mmol/L (22-29); Chloride 107 mmol/L (96-108); Cholesterol 144 mg/dL (<200); Estimated Glomerular Filt Rate > 60; Glucose Random 85 mg/dL (60-115); HDL Cholesterol 40 mg/dL (>40); LDL Cholesterol Calculated 91 mg/dL (<100); Potassium 4.1 mmol/L (3.3-5.1); Sodium 139 mmol/L (135-145); Total Protein 7.5 g/dL (6.5-8.0); Triglycerides 68 mg/dL (<150)
== END 2024-05-30 09:22 | disposition home or self-care (01) ==
LOC: HO.LAB 09:21
PROVIDERS: PCP Internal Medicine; Visit Provider Nurse Practitioner Gerontology
DX: Z76.89 Persons encountering health services in other specified circumstances (principal)
CPT/HCPCS: 36415; 80053; 80061; 85025

== ENCOUNTER 2024-06-13 08:55 | Outpatient (AMB) | payer OTHER, SELFPAY ==
[2024-06-13 09:24] VITALS: BMI 41.6
--- NOTE | 2024-06-13 09:24 | A.OFFVIS_ITS ---
VS Expanded 06/13/24 09:24 Height 5 ft 6 in Weight 257 lb 15.053 oz BMI 41.6 Intake Visit Reasons: OBESITY/CONFIRMED Allergies No Known Allergies Allergy (Verified 05/25/24 05:06) Nutrition Presentation Details: Pt presents for MNT f/u for obesity Pt reports working on meal planning, reducing portions exercise at home , 15 min fruits/day : 1 veg: not including BS Monitoring Most Recent Diabetes Results: Cholesterol 144 mg/dL (<200) 05/30/24 HDL Cholesterol 40 mg/dL (>40) L 05/30/24 Triglycerides 68 mg/dL (<150) 05/30/24 Creatinine 1.02 mg/dL (0.5-1.4) 05/30/24 Blood Urea Nitrogen 9 mg/dL (9-16) 05/30/24 Sodium 139 mmol/L (135-145) 05/30/24 Potassium 4.1 mmol/L (3.3-5.1) 05/30/24 Chloride 107 mmol/L (96-108) 05/30/24 Carbon Dioxide 24 mmol/L (22-29) 05/30/24 Calcium 9.7 mg/dL (8.4-10.2) 05/30/24 AST 17 U/L (5-31) 05/30/24 ALT 15 U/L (0-31) 05/30/24 Total Protein 7.5 g/dL (6.5-8.0) 05/30/24 Albumin 4.2 g/dL (3.5-5.0) 05/30/24 [facility] Medical History (Updated 05/26/24 @ 00:01 by Ani Nieves) PCOS (polycystic ovarian syndrome) Obesity, morbid, BMI 40.0-49.9 Mental and behavioral problem Anxiety Depression Surgical History Hx of oral surgery Family History Father No problems noted. Mother No problems noted. Other Mental health disorder Social History Housing: Apartment Alcohol intake: never Patient Tobacco Use Status: Never used Tobacco e-Cigarette/Vaping Use: Never Used Second Hand Smoke Exposure: No service: No Current occupational status: unemployed Current occupational exposures/hazards: No Cognitive needs: No Hearing needs: No Vision needs: Yes (glasses) Female Reproductive History Menstrual Age of Menarche: 10 Assessment & Plan Assessment & Plan (1) Obesity, morbid, BMI 40.0-49.9: Code(s): E66.01 - Morbid (severe) obesity due to excess calories Category: Medical Plan: Wt: 119 Kg (04/2024 ), 117 kg (05/2024) Est kcal needs as per MSJ: 2300 (40% carb, 30% protein/fat) Est fluid needs as per 25-30 ml/d: 3600 Est prot per day as per 1 g/kg bw: 119 Recommend fiber intake : 8-10 g per day and gradually increase to 25-28 g per day for women and 35-38 g for men or as tolerated Recommend sodium intake per day : less than 1500 mg less than 2000 mg Educated patient on: ( R = reviewed V = verbalizes understanding N/R = needs review N/A = not applicable * Food sources of carbohydrate, adequate serving sizes and its role in various health conditions: R * Differences between complex carbohydrates a simple carbohydrates, role of fiber in diet: R * Lean protein sources of foods: R V NR * Differences between types of fats and role in diet (mono on saturated fat fatty acids, saturated fatty acids, trans fats): R V N/R * Food sources of sodium in salt and healthy modifications for heart health in kidney health: R V R/V * Vitamins and minerals: R V N/R * Healthy plate method concept: R * Physical activity: Benefits a precaution: R V N/R Patient Instructions: Have a snack replacement at bedtime - see list of options Try one new vegetable a week Continue with 15-20 min of walking as tolerated keep hydrated by having water Coding Level of Care Code Nutr Indiv Subseq (06511) Diagnoses Obesity, morbid, BMI 40.0-49.9 E66.01 Time Spent (min) 30
== END 2024-06-13 10:04 | disposition home or self-care (01) ==
PROVIDERS: PCP Internal Medicine; Visit Provider Dietitian, Registered
DX: E66.01 Morbid (severe) obesity due to excess calories (principal)

== ENCOUNTER → 2024-06-13 08:55 | Outpatient (BNVA) | payer OTHER, SELFPAY | PROVIDERS: PCP Internal Medicine; Visit Provider Dietitian, Registered | DX: E66.01 Morbid (severe) obesity due to excess calories (principal); Z68.41 Body mass index [BMI] 40.0-44.9, adult | CPT/HCPCS: 97803 ==

== ENCOUNTER 2024-07-20 10:54 | Outpatient (AMB) | payer OTHER, SELFPAY ==
--- NOTE | 2024-07-20 11:29 | A.OFFVIS_ITS ---
Intake Visit Reasons: kidney stone/UTI Allergies No Known Allergies Allergy (Verified 08/19/24 10:01) HPI Comments Details: Meek is a 24 year old female who was seen in the ED in April with pain due to passing a kidney stone. She states she feels that she passed the stone. Currently asymptomatic. h/o UTI's. Discussed the importance of drinking adequate water. 24 hr urine, renal US [facility] Medical History (Updated 09/08/24 @ 21:50 by Kenia Hart MD) PCOS (polycystic ovarian syndrome) Obesity, morbid, BMI 40.0-49.9 Mental and behavioral problem Anxiety Depression Surgical History Hx of oral surgery Family History Father No problems noted. Mother No problems noted. Other Mental health disorder Social History (Updated 07/21/24 @ 10:46 by Bianca Prieto [facility]) Housing: Apartment Alcohol intake: never Patient Tobacco Use Status: Never used Tobacco e-Cigarette/Vaping Use: Never Used Second Hand Smoke Exposure: No service: No Current occupational status: unemployed Current occupational exposures/hazards: No Cognitive needs: No Hearing needs: No Vision needs: Yes (glasses) Female Reproductive History Menstrual Age of Menarche: 10 Review of Systems Const All systems reviewed & are unremarkable except as noted in HPI and below Reports no additional complaints Eyes Reports no additional complaints ENT Reports no additional complaints Card Reports no additional complaints Resp Reports no additional complaints GI Reports no additional complaints Reports as per HPI Musc Reports no additional complaints Skin/Breast Reports system reviewed and no additional complaints, except as documented Neuro Reports no additional complaints Psych Reports no additional complaints Endo Reports no additional complaints Scar/Lymph Reports no additional complaints Aller/Immun Reports no additional complaints Physical Exam Const General: cooperative, healthy appearing and no acute distress Orientation/consciousness: patient oriented x3 HEENT Head: Yes normal to inspection, Yes normocephalic and Yes atraumatic Eyes Conjunctivae: conjunctivae normal Neck Neck: Yes normal visual inspection and Yes trachea midline Chest Chest palpation & inspection: normal inspection of the chest Resp Effort & Inspection: normal respiratory effort Cardio Rate: regular rate GI Inspection: Yes normal to inspection Neuro General: patient oriented x3 Extrem General: No edema Psych Appearance: grossly normal Results AMB Urinalysis, Automated UA Leukoctes 15 Shahla/uL Last Edit by Bianca Kirby A on 07/20/24 11:52 UA Nitrite Negative Last Edit by Bianca Kirby, A on 07/20/24 11:52 UA Urobilinogen 0.2 mg/dL Last Edit by Bianca Kirby, A on 07/20/24 11:5 2 UA Protein 30 mg/dL Last Edit by Bianca Kirby A on 07/20/24 11:52 UA pH 5.0 Last Edit by Bianca Kirby, A on 07/20/24 11:52 UA Blood 0 Umair/uL Last Edit by Bianca Kirby A on 07/20/24 11:52 UA Specific [place] 1.030 Last Edit by Bianca Kirby, A on 07/20/24 11: 52 UA Ketone Positive Last Edit by Bianca Kirby A on 07/20/24 11:52 UA Bilirubin 0 mg/dL Last Edit by Bianca Kirby A on 07/20/24 11:52 UA Glucose 0 mg/dL Last Edit by Bianca Kirby, A on 07/20/24 11:52 Results Reviewed Results Reviewed: Laboratory Last Values Urine pH (Auto) 5.0 07/20/24 11:50 Specific [place] (Auto) 1.030 07/20/24 11:50 Urine Protein (Auto) 30 mg/dL 07/20/24 11:50 Glucose (UA)(Auto) 0 mg/dL 07/20/24 11:50 Urine Ketones (Auto) Positive 07/20/24 11:50 Urine Blood (Auto) 0 Umair/uL 07/20/24 11:50 Urine Nitrite (Auto) Negative 07/20/24 11:50 Urine Bilirubin (Auto) 0 mg/dL 07/20/24 11:50 Urine Urobilinogen (Auto) 0.2 mg/dL 07/20/24 11:50 Leukocyte Esterase (Auto) 15 Shahla/uL 07/20/24 11:50 Date of Service: 05/25/24 EXAMINATION: CT ABDOMEN AND PELVIS WITHOUT CONTRAST CLINICAL INFORMATION: Right flank pain. COMPARISON: None available. TECHNIQUE: Multidetector volumetric imaging was performed from the superior aspect of the liver through the pubic symphysis. Sagittal and coronal reformatted images were obtained on the technologist's workstation. This CT examination was performed using dose optimization techniques as appropriate, variously including the following: *Automated exposure control *Adjustment of mA and/or kV according to patient size (this includes techniques or standardized protocols for targeted exams where dose is matched to indication/reason for exam; i.e. extremities or head) *Use of iterative reconstruction technique DLP: 991 mGy-cm FINDINGS: LUNG BASES: The visualized lung bases are unremarkable. LIVER, GALLBLADDER, AND BILIARY TREE: The liver is normal in size, shape, and attenuation. No focal hepatic lesion or biliary ductal dilatation is present. The gallbladder is unremarkable with no evidence of radiopaque gallstones, gallbladder wall thickening, or obvious pericholecystic inflammatory changes. PANCREAS: Unremarkable. SPLEEN: Unremarkable. ADRENAL GLANDS: Unremarkable. KIDNEYS AND URETERS: There is mild right hydroureteronephrosis with trace perirenal fat stranding, produced by a 3 mm calculus at the right ureterovesical junction. No additional renal or ureteral calculi. Kidneys normal in size and contour. No renal lesions. No left-sided nephrolithiasis. BLADDER: Decompressed. No wall thickening. GASTROINTESTINAL TRACT: Stomach, small bowel, and colon are normal in caliber. No bowel wall thickening or surrounding inflammatory changes. Appendix is normal. No intraperitoneal free fluid or free air. ABDOMINAL WALL: No significant hernia is appreciated. LYMPH NODES: Normal. VASCULAR: Unremarkable. PELVIC VISCERA: The uterus and adnexa are unremarkable. OSSEOUS STRUCTURES: No acute osseous abnormalities. Lumbar spine appears relatively well-preserved aside from a few Schmorl's nodes. IMPRESSION: A 3 mm calculus at the right ureterovesical junction produces mild right hydroureteronephrosis. Assessment & Plan Assessment & Plan (1) Hydronephrosis: Code(s): N13.30 - Unspecified hydronephrosis Category: Medical (2) Ureteral stone: Code(s): N20.1 - Calculus of ureter Category: Medical (3) History of UTI: Code(s): Z87.440 - Personal history of urinary (tract) infections Category: Medical Plan 24 hr urine renal US telehealth 3 months Orders: Orders AMB Urinalysis Automated 08/21/24 Z13.9 - Encounter for screening, unspecified US renal BI 07/20/24 N13.30 - Unspecified hydronephrosis, N20.1 - Calculus of ureter Patient Instructions: The patient had an opportunity to ask questions regarding treatment plan. The patient expressed understanding and agreement with the above treatment plan. The patient is aware they should contact our office by phone for worsening of their current condition or the appearance of new symptoms. Compliance is encouraged with any medications and followup testing that is ordered. It is a privilege to be allowed the opportunity to participate in the urologic care of your patient. If you have any questions or concerns regarding treatment for the above conditions please do not hesitate to contact me. The office telephone contact is [phone]. This note is constructed in part using voice recognition software. While every effort has been made to ensure accuracy finisher hot strip errors may have been included. Yours sincerely, Kenia Hart MD Coding Level of Care Code New Pt Level 4 (86265) Diagnoses Hydronephrosis N13.30 Ureteral stone N20.1 History of UTI Z87.440
== END 2024-07-20 12:23 | disposition home or self-care (01) ==
PROVIDERS: PCP Internal Medicine; Visit Provider Urology
DX: N13.30 Unspecified hydronephrosis (principal); N20.1 Calculus of ureter; Z87.440 Personal history of urinary (tract) infections
CPT/HCPCS: 99204

== ENCOUNTER → 2024-07-20 10:54 | Outpatient (BNVA) | payer OTHER, SELFPAY | PROVIDERS: PCP Internal Medicine; Visit Provider Urology | DX: N13.30 Unspecified hydronephrosis (principal); N20.1 Calculus of ureter | CPT/HCPCS: 81003; 99202 ==

== ENCOUNTER → 2024-07-21 09:24 | Outpatient (BNVA) | payer OTHER, SELFPAY | PROVIDERS: PCP Internal Medicine; Visit Provider Physician Assistant Surgical ==

== ENCOUNTER 2024-07-25 13:23 | Outpatient (AMB) | payer OTHER, SELFPAY ==
[2024-07-25 13:40] VITALS: BMI 40.7
--- NOTE | 2024-07-25 13:40 | A.OFFVIS_ITS ---
VS Expanded 07/25/24 13:40 Height 5 ft 6 in Weight 252 lb 3.341 oz BMI 40.7 Intake Visit Reasons: Obesity/LVM Allergies No Known Allergies Allergy (Verified 07/21/24 10:42) Nutrition Presentation Details: Pt presents for MNT f/u for obesity Pt reports feeling well, working on reducing portion sizes of sugary foods/pastries Incorporating exercises, 5-10 minutes BS Monitoring Most Recent Diabetes Results: Cholesterol 144 mg/dL (<200) 05/30/24 HDL Cholesterol 40 mg/dL (>40) L 05/30/24 Triglycerides 68 mg/dL (<150) 05/30/24 Creatinine 1.02 mg/dL (0.5-1.4) 05/30/24 Blood Urea Nitrogen 9 mg/dL (9-16) 05/30/24 Sodium 139 mmol/L (135-145) 05/30/24 Potassium 4.1 mmol/L (3.3-5.1) 05/30/24 Chloride 107 mmol/L (96-108) 05/30/24 Carbon Dioxide 24 mmol/L (22-29) 05/30/24 Calcium 9.7 mg/dL (8.4-10.2) 05/30/24 AST 17 U/L (5-31) 05/30/24 ALT 15 U/L (0-31) 05/30/24 Total Protein 7.5 g/dL (6.5-8.0) 05/30/24 Albumin 4.2 g/dL (3.5-5.0) 05/30/24 AFQ-Kcwpzut-Ze.Jeor Equation Height: 5 ft 6 in Weight: 252 lb Resting Metabolic Rate: 1900.74 Calculated Activity Level: Sedentary Calories Needed to Maintain Weight: 2280.89 [facility] Medical History (Updated 07/20/24 @ 12:17 by Kenia Hart MD) PCOS (polycystic ovarian syndrome) Obesity, morbid, BMI 40.0-49.9 Mental and behavioral problem Anxiety Depression Surgical History Hx of oral surgery Family History Father No problems noted. Mother No problems noted. Other Mental health disorder Social History (Updated 07/21/24 @ 10:46 by Bianca Prieto [facility]) Housing: Apartment Alcohol intake: never Patient Tobacco Use Status: Never used Tobacco e-Cigarette/Vaping Use: Never Used Second Hand Smoke Exposure: No service: No Current occupational status: unemployed Current occupational exposures/hazards: No Cognitive needs: No Hearing needs: No Vision needs: Yes (glasses) Female Reproductive History Menstrual Age of Menarche: 10 Assessment & Plan Assessment & Plan (1) Obesity, morbid, BMI 40.0-49.9: Code(s): E66.01 - Morbid (severe) obesity due to excess calories Category: Medical Plan: Wt: 119 Kg (04/2024 ), 117 kg (05/2024), 114 kg (07/23) Est kcal needs as per MSJ: 2300 (40% carb, 30% protein/fat) Est fluid needs as per 25-30 ml/d: 3600 Est prot per day as per 1 g/kg bw: 119 Recommend fiber intake : 8-10 g per day and gradually increase to 25-28 g per day for women and 35-38 g for men or as tolerated Recommend sodium intake per day : less than 1500 mg less than 2000 mg Educated patient on: ( R = reviewed V = verbalizes understanding N/R = needs review N/A = not applicable * Food sources of carbohydrate, adequate serving sizes and its role in various health conditions: R * Differences between complex carbohydrates a simple carbohydrates, role of fiber in diet: R * Lean protein sources of foods: R * Differences between types of fats and role in diet (mono on saturated fat fatty acids, saturated fatty acids, trans fats): R V N/R * Food sources of sodium in salt and healthy modifications for heart health in kidney health: R V R/V * Vitamins and minerals: R * Healthy plate method concept: R * Physical activity: Benefits a precaution: R Patient Instructions: Continue working on reducing on sugars (pastries/cookies and similar) Choose snack that includes a serving of protein : yogurt, 1/2 sand , fruit and peanut butter , cottage cheese Coding Level of Care Code Nutr Indiv Subseq (66656) Diagnoses Obesity, morbid, BMI 40.0-49.9 E66.01 Time Spent (min) 25
[2024-07-25 14:24] VITALS: BMI 40.7
== END 2024-07-25 14:10 | disposition home or self-care (01) ==
PROVIDERS: PCP Internal Medicine; Visit Provider Dietitian, Registered
DX: E66.01 Morbid (severe) obesity due to excess calories (principal)

== ENCOUNTER → 2024-07-25 13:23 | Outpatient (BNVA) | payer OTHER, SELFPAY | PROVIDERS: PCP Internal Medicine; Visit Provider Dietitian, Registered | DX: E66.01 Morbid (severe) obesity due to excess calories (principal); Z68.41 Body mass index [BMI] 40.0-44.9, adult | CPT/HCPCS: 97803 ==

== ENCOUNTER 2024-08-19 07:47 | Outpatient (AMB) | payer OTHER, SELFPAY ==
--- NOTE | 2024-08-19 10:01 | MHC.OFFVISWM ---
VS Expanded 08/19/24 12:59 Height 5 ft 6 in Weight 250 lb BMI 40.3 Body Fat % 49.3 Body Fat Mass 123.2 Fat Free Mass 126.6 Visceral Fat Rating 12 Body Water Mass 91 Basal Metabolic Rate/Score 1,854 Intake Visit Reasons: TV Re-Est SWL BMI 41.6 Allergies No Known Allergies Allergy (Verified 08/19/24 10:01) Medication List - Last Reconciled 08/19/24 by Mike Romero MD fluoxetine 20 mg PO DAILY vitamin B complex 1 tab PO DAILY HPI HPI TV Re-Est SWL BMI 41.6: Details: Start time: 8.50am, End time: 9.30am ?I spent 35 minutes speaking with the patient on the phone plus an additional 5 minutes reviewing and updating records for a total of 40 minutes HPI Comments Details: Previous weight loss efforts: self diet and RD Wakes up: 7am, Sleeps: 9pm Breakfast: most often skips Lunch: 12pm (rice, beans, meat) Dinner: skips [facility] Medical History (Updated 07/20/24 @ 12:17 by Kenia Hart MD) PCOS (polycystic ovarian syndrome) Obesity, morbid, BMI 40.0-49.9 Mental and behavioral problem Anxiety Depression Surgical History Hx of oral surgery Family History Father No problems noted. Mother No problems noted. Other Mental health disorder Social History (Updated 07/21/24 @ 10:46 by Bianca Prieto CMA) Housing: Apartment Alcohol intake: never Patient Tobacco Use Status: Never used Tobacco e-Cigarette/Vaping Use: Never Used Second Hand Smoke Exposure: No service: No Current occupational status: unemployed Current occupational exposures/hazards: No Cognitive needs: No Hearing needs: No Vision needs: Yes (glasses) Female Reproductive History Menstrual Age of Menarche: 10 Telehealth Telehealth Telehealth Platform: Telephone Location of provider rendering services: practice address Patient Identification confirmed using: Name, : Yes Telehealth method: voice only Patient verbally consented to treatment: Yes Patient verbally consented to billing insurance company: Yes Patient informed of any privacy concerns related to visit: Yes Minutes spent on Phone/Video with Pt.: 40 Assessment & Plan Assessment & Plan (1) Obesity, morbid, BMI 40.0-49.9: Code(s): E66.01 - Morbid (severe) obesity due to excess calories Category: Medical Plan: 1.? Plan for lap sleeve gastrectomy. If diaphragmatic or ventral hernias are present at time of surgery, these will be repaired laparoscopically as well. Risks and complications include possible conversion to an open procedure, anastomotic leak, bleeding requiring transfusion, small bowel obstruction, , DVT and pulmonary embolism, cardiac, or pulmonary complications, as body rolling machine tender complications such as anastomotic ulcer, insufficient weight loss and vitamin deficiencies. I emphasized the importance of close follow-up, adherence to instructions and good communication. 2. You will receive a link of our software cyndy to generate an individualized nutritional and exercise plan specific for you. Please send me a screenshot of the plans you will generate Meal to include lean meat (beef, fish, pork, turkey, chicken), or czech yogurt, or egg whites, or beans with a salad with olive oil and fruits (berries, pears, apples, kiwi). Avoid salt, breads, potatoes, rice, pasta, desserts. ?3. If you choose shakes, each shake would be drunk slowly, like coffee in a period of 2 hours. ?4. If you choose bars, cut each bar in 4 pieces and eat each piece in 30min ?to make each bar last 2 hours. ?5. I emphasized the importance of measuring accurately the food portion and measure it when serving the food in plate ?6. The meal portions include a specific number of forks of meat and salad. You always eat the meat portion but you can replace up to half of salad/vegetables portion with rice, potatoes or pasta, or a fruit ?if you like. The less you do it the better weight loss will be. ?7. One full-size fork is what it can be scooped on the fork without falling aside and not what can be bit with the fork. Use regular forks like those you find in a typical restaurant. ?8.? Please send me weight measurements as soon as possible and then once a week. Always include your diet and exercise plan. 9. The best choice would be to purchase a stationary bike, elliptical or treadmill at home that can track calories. Let me know if you do so I can give you an exercise plan. ?10.?It is important of avoiding and for at least 18 months postoperatively and has been discussed at the infosession. ?11. Goal is to lose at least 1.5-2lbs per week ?12. Goal to lose 10% of your weight before surgery, which is about 25lbs. Ultimate weight goal: 225lbs before surgery 13. Please follow the diet plan exactly without any change. If you don't like something about the plan or you feel hungry you need to communicate with me so I can help you revise the plan. You should not change the plan yourself. 14. To be scheduled for EGD due to history of GERD. The possibility of biopsies was discussed. Patient needs to avoid use of NSAIDs and aspirin for 1 week prior to EGD. Risks of perforation and bleeding was discussed with the patient. This will be an outpatient procedure with IV sedation. Orders: Orders Insulin Today E66.01 - Morbid (severe) obesity due to excess calories, L68.0 - Hirsutism H Pylori Breath Test Today E66.01 - Morbid (severe) obesity due to excess calories, L68.0 - Hirsutism IRON PROFILE Today E66.01 - Morbid (severe) obesity due to excess calories, L68.0 - Hirsutism Vitamin B1 Today E66.01 - Morbid (severe) obesity due to excess calories, L68.0 - Hirsutism Vitamin A Today E66.01 - Morbid (severe) obesity due to excess calories, L68.0 - Hirsutism TSH reflex Free T4 Today E66.01 - Morbid (severe) obesity due to excess calories, L68.0 - Hirsutism Vitamin D 25-OH Total Today E66.01 - Morbid (severe) obesity due to excess calories, L68.0 - Hirsutism XR chest 2V Today E66.01 - Morbid (severe) obesity due to excess calories, L68.0 - Hirsutism FL upper GI w air Today E66.01 - Morbid (severe) obesity due to excess calories, L68.0 - Hirsutism Hemoglobin A1c Today E66.01 - Morbid (severe) obesity due to excess calories, L68.0 - Hirsutism Complete Blood Count Auto Diff Today E66.01 - Morbid (severe) obesity due to excess calories, L68.0 - Hirsutism Lipid Panel Today E66.01 - Morbid (severe) obesity due to excess calories, L68.0 - Hirsutism Comprehensive Met. Panel Today E66.01 - Morbid (severe) obesity due to excess calories, L68.0 - Hirsutism Vitamin B12 and Folate Today E66.01 - Morbid (severe) obesity due to excess calories, L68.0 - Hirsutism Zinc Today E66.01 - Morbid (severe) obesity due to excess calories, L68.0 - Hirsutism C Reactive Protein Today E66.01 - Morbid (severe) obesity due to excess calories, L68.0 - Hirsutism Ferritin Today E66.01 - Morbid (severe) obesity due to excess calories, L68.0 - Hirsutism US abdomen comp w elastography Today E66.01 - Morbid (severe) obesity due to excess calories, L68.0 - Hirsutism ECG 12 lead EKG Today E66.01 - Morbid (severe) obesity due to excess calories, L68.0 - Hirsutism Referrals Nutrition/Dietitian Referral E66.01 - Morbid (severe) obesity due to excess calories, L68.0 - Hirsutism Behavioral Health Referral E66.01 - Morbid (severe) obesity due to excess calories, L68.0 - Hirsutism
[2024-08-19 12:59] VITALS: BMI 40.3
== END 2024-08-19 13:01 | disposition home or self-care (01) ==
LOC: HO.HBS 07:47
PROVIDERS: PCP Internal Medicine; Visit Provider Surgery
DX: E66.01 Morbid (severe) obesity due to excess calories (principal)
CPT/HCPCS: 99203

== ENCOUNTER → 2024-08-19 07:47 | Outpatient (BNVA) | payer OTHER, SELFPAY | PROVIDERS: PCP Internal Medicine; Visit Provider Surgery ==

== ENCOUNTER 2024-08-30 08:37 | Outpatient (REF) | payer OTHER, SELFPAY ==
--- NOTE | 2024-08-30 09:06 | ECG_ITS ---
Test Reason : morbid obesity Blood Pressure : / mmHG Vent. Rate : 066 BPM Atrial Rate : 066 BPM P-R Int : 130 ms QRS Dur : 076 ms QT Int : 370 ms P-R-T Axes : 034 045 018 degrees QTc Int : 387 ms Normal sinus rhythm Normal ECG No previous ECGs available Referred By: Mike Romero Electronically Signed By:JAZLYN ALATORRE
[2024-08-30 10:03] LABS: Basophils Percent Auto 0.5 % (0-2); Eosinophils Absolute Auto 0.1 X10*3/uL (0.0-0.4); Eosinophils Percent Auto 1.7 % (0-4); Hemoglobin 13.9 g/dl (12.0-16.0); Imm Gran Abs Auto 0.02 X10*3/uL (0.00-0.03); Imm Gran Pct Auto 0.3 % (0.0-0.4); Lymphocytes Absolute Auto 1.8 X10*3/uL (1.2-4.9); Lymphocytes Percent Auto 27.2 % (20-40); MANUAL DIFF FLAG SCAN; Mean Corpuscular HGB Conc 31.6 g/dl (31.0-35.0); Mean Corpuscular Hemoglobin 27.5 pg (27.0-33.0); Mean Corpuscular Volume 87.1 fL (80.0-98.0); Monocytes Absolute Auto 0.6 X10*3/uL (0.1-1.2); Monocytes Percent Auto 8.5 % (2-11); Neutrophils Absolute Auto 4.1 x10*3/uL (2.0-8.3); Neutrophils Percent Auto 61.8 % (45-73); PLT CLUMP 1; Red Blood Count 5.05 X10*6/uL (4.20-5.50); Red Cell Distribution Width 14.6 % (11.0-16.0); SCAN SMEAR FLAG 1
[2024-08-30 10:11] LABS: White Blood Count 6.6 X10*3/uL (4.8-10.8)
[2024-08-30 10:26] LABS: Estimated Average Glucose 97 mg/dL; Hemoglobin A1C 107.4409 umol/L; Total Hemoglobin (HGBA1C) 3436.6771 umol/L
[2024-08-30 10:47] LABS: Alanine Aminotransferase 15 U/L (0-31); Albumin Level 3.9 g/dL (3.5-5.0); Alkaline Phosphatase 58 U/L (39-117); Anion Gap 14 (12-20); Aspartate Amino Transferase 18 U/L (5-31); Bilirubin Total 0.4 mg/dL (0.0-1.0); Blood Urea Nitrogen 8 mg/dL (9-16); C Reactive Protein 2.03 mg/dL (< or = 0.50); Calcium 9.2 mg/dL (8.4-10.2); Carbon Dioxide 24 mmol/L (22-29); Chloride 107 mmol/L (96-108); Cholesterol 114 mg/dL (<200); Estimated Glomerular Filt Rate > 60; Glucose Random 81 mg/dL (60-115); HDL Cholesterol 27 mg/dL (>40); Iron 56 mcg/dL (30-160); LDL Cholesterol Calculated 73 mg/dL (<100); Percent Iron Saturation 19 % (15-50); Potassium 3.8 mmol/L (3.3-5.1); Sodium 141 mmol/L (135-145); Total Iron Binding Capacity 297 mcg/dL (228-428); Total Protein 6.9 g/dL (6.5-8.0); Triglycerides 70 mg/dL (<150); Unsaturated Iron Binding 241 ug/dL
[2024-08-30 10:58] LABS: Mean Platelet Volume 13.9 fL (9.4-12.3); Platelet Count 156 X10*3/uL (160-400)
[2024-08-30 10:59] LABS: SLIDE REVIEW VERIFIED
[2024-08-30 11:03] LABS: Ferritin 42 ng/mL (10-122); Folate 11.6 ng/mL (> or = 4.0); TSH reflex Free T4 0.77 uIU/mL (0.32-4.0); Vitamin B12 591 pg/mL (200-900); Vitamin D 25-OH Total 15.4 ng/mL (>30)
[2024-08-30 11:54] LABS: Insulin 11 uU/mL (2-29)
[2024-09-02 03:38] LABS: Zinc 56 mcg/dL (60-130)
[2024-09-03 23:03] LABS: Vitamin A 22 mcg/dL (38-98)
[2024-09-06 00:24] LABS: Vitamin B1 9 nmol/L (8-30)
== END 2024-08-30 08:38 | disposition home or self-care (01) ==
LOC: HO.XRAY 08:37
PROVIDERS: PCP Internal Medicine; Visit Provider Surgery
DX: E66.01 Morbid (severe) obesity due to excess calories (principal); L68.0 Hirsutism
CPT/HCPCS: 36415; 71046; 80053; 80061; 82306; 82607; 82728; 82746; 83036; 83525; 83540; 84425; 84443; 84590; 84630; 85025; 86140; 93005

== ENCOUNTER 2024-09-06 09:02 | Outpatient (REF) | payer OTHER, SELFPAY ==
--- NOTE | ~2024-09-06 | US_ITS ---
EXAMINATION: US COMPLETE ABDOMEN WITH LIVER ELASTOGRAPHY CLINICAL INFORMATION: Morbid obesity. COMPARISON: CT abdomen and pelvis 05/25/2024. TECHNIQUE: Real-time imaging of the abdominal viscera. Noninvasive ultrasound liver fibrosis assessment is performed using Tomas ElastPQ point quantification shear wave elastography (pSWE) with a C5-2 MHz transducer. Multiple elastography samples are obtained. FINDINGS: PANCREAS: Obscured by bowel gas and could not be evaluated. ABDOMINAL AORTA: The proximal, middle, and distal aortic segments are normal in caliber. INFERIOR VENA CAVA: Visualized portions are normal. LIVER: Liver demonstrates normal size with slightly increased echogenicity. No focal lesion or intrahepatic biliary duct dilatation. The right lobe measures 12.9 cm in length. The left lobe measures 6.9 cm in length. Portal flow is towards the liver (hepatopetal). Shear wave liver elastography median stiffness is 1.08 m/s (reference: normal median stiffness is 1.3 m/s or less). IQR/median stiffness to assess sampling precision is 0.19 (reference: good quality data set is IQR/median stiffness of 0.15 or less). GALLBLADDER: Normal. The gallbladder is physiologically distended without evidence of stones, sludge, polyps, wall thickening or pericholecystic fluid. COMMON BILE DUCT: Normal in caliber measuring 0.4 cm in diameter. RIGHT KIDNEY: Normal. No hydronephrosis. No renal calculi or focal parenchymal lesions. The kidney measures 9.7 cm in maximum dimension. LEFT KIDNEY: Normal. No hydronephrosis. No renal calculi or focal parenchymal lesions. The kidney measures 11.6 cm in maximum dimension. SPLEEN: Normal. The spleen measures 9.2 cm in maximum dimension. FREE FLUID: None. US/US abdomen comp w elastography IMPRESSION: 1. Mildly echogenic liver. 2. Liver elastography: Measurements are consistent with a high probability of normal liver stiffness. REFERENCE: Society of Radiologists in Ultrasound Liver Stiffness Thresholds (2020): LIVER STIFFNESS THRESHOLDS: *Liver Stiffness equal or less than 1.3 m/s: High probability of being normal. *Liver Stiffness less than 1.7 m/s: In the absence of other known clinical signs, rules out compensated advanced chronic liver disease. *Liver Stiffness 1.7-2.1 m/s: Suggestive of compensated advanced chronic liver disease but need further test for confirmation. *Liver Stiffness over 2.1 m/s: Rules in compensated advanced chronic liver disease. *Liver Stiffness over 2.4 m/s: Suggestive of clinically significant portal hypertension. QUALITY OF DATA SET: *IQR/Median value equal or less than 0.15 implies a quality data set. *IQR/Median value over 0.15 implies a poor quality data set. SIGNIFICANT CHANGE FROM PRIOR EXAM: Significant change if liver stiffness measurement is 10% or greater from prior exam. OTHER CONSIDERATIONS: The stage of liver fibrosis may be overestimated in the setting of acute hepatitis, liver inflammation, elevated liver function tests, hepatic vascular congestion, obstructive cholestasis, non-fasting state, and infiltrative diseases such as amyloidosis and lymphoma. In some patients with NAFLD, the liver stiffness thresholds for compensated advanced chronic liver disease may be lower. In causes other than viral hepatitis and NAFLD, liver stiffness thresholds are not well established. Electronically signed by: Trenton Geronimo MD 10/29/2024 10:43 AM TELLY
== END 2024-09-06 09:03 | disposition home or self-care (01) ==
LOC: HO.US 09:02
PROVIDERS: PCP Internal Medicine; Visit Provider Surgery
DX: E66.01 Morbid (severe) obesity due to excess calories (principal); L68.0 Hirsutism
CPT/HCPCS: 76700; 76981

== ENCOUNTER 2024-09-26 08:45 | Outpatient (AMB) | payer OTHER, SELFPAY ==
[2024-09-26 09:09] VITALS: BMI 38.5
--- NOTE | 2024-09-26 09:09 | A.OFFVIS_ITS ---
VS Expanded 09/26/24 09:09 Height 5 ft 6 in Weight 238 lb 8.642 oz BMI 38.5 Intake Visit Reasons: T2DM/CONFIRMED Allergies No Known Allergies Allergy (Verified 08/19/24 10:01) Nutrition Presentation Details: Pt presents for MNT f/u for obesity. Pt reports working on including physical activity 20 minutes daily and gradually increasing to 30 minutes food frequency fruits/day : 1/day non starchy vegetables: 2 times a week (broccoli, carrots) starches: rice, beans, root vegetables, crackers/pastries fish: not including, has beef 3 x/wk , pork 1-2 x/wk , poultry 3 times week , eggs 3 times/wk dairy: varies: yogurt 2% milk, oatmilk , cheese , ice cream beverages: water, tea, soda (in small amount) etoh/smoking: denies MVI- not taking taking b complex BS Monitoring Most Recent Diabetes Results: Cholesterol 114 mg/dL (<200) 08/30/24 HDL Cholesterol 27 mg/dL (>40) L 08/30/24 Triglycerides 70 mg/dL (<150) 08/30/24 Creatinine 0.79 mg/dL (0.5-1.4) 08/30/24 Blood Urea Nitrogen 8 mg/dL (9-16) L 08/30/24 Sodium 141 mmol/L (135-145) 08/30/24 Potassium 3.8 mmol/L (3.3-5.1) 08/30/24 Chloride 107 mmol/L (96-108) 08/30/24 Carbon Dioxide 24 mmol/L (22-29) 08/30/24 Calcium 9.2 mg/dL (8.4-10.2) 08/30/24 AST 18 U/L (5-31) 08/30/24 ALT 15 U/L (0-31) 08/30/24 Total Protein 6.9 g/dL (6.5-8.0) 08/30/24 Albumin 3.9 g/dL (3.5-5.0) 08/30/24 [facility] Medical History (Updated 09/08/24 @ 21:50 by Kenia Hart MD) PCOS (polycystic ovarian syndrome) Obesity, morbid, BMI 40.0-49.9 Mental and behavioral problem Anxiety Depression Surgical History Hx of oral surgery Family History Father No problems noted. Mother No problems noted. Other Mental health disorder Social History (Updated 07/21/24 @ 10:46 by Bianca Prieto [facility]) Housing: Apartment Alcohol intake: never Patient Tobacco Use Status: Never used Tobacco e-Cigarette/Vaping Use: Never Used Second Hand Smoke Exposure: No service: No Current occupational status: unemployed Current occupational exposures/hazards: No Cognitive needs: No Hearing needs: No Vision needs: Yes (glasses) Female Reproductive History Menstrual Age of Menarche: 10 Assessment & Plan Assessment & Plan (1) Obesity, morbid, BMI 40.0-49.9: Code(s): E66.01 - Morbid (severe) obesity due to excess calories Category: Medical Plan: Wt: 119 Kg (04/2024 ), 117 kg (05/2024), 114 kg (07/23) Est kcal needs as per MSJ: 2300 (40% carb, 30% protein/fat) Est fluid needs as per 25-30 ml/d: 3600 Est prot per day as per 1 g/kg bw: 119 Recommend fiber intake : 8-10 g per day and gradually increase to 25-28 g per day for women and 35-38 g for men or as tolerated Recommend sodium intake per day : less than 2300 mg Educated patient on: ( R = reviewed V = verbalizes understanding N/R = needs review N/A = not applicable * Food sources of carbohydrate, adequate serving sizes and its role in various health conditions: R * Differences between complex carbohydrates a simple carbohydrates, role of fiber in diet: reviewed * Lean protein sources of foods: R * Differences between types of fats and role in diet (mono on saturated fat fatty acids, saturated fatty acids, trans fats): R V N/R * Food sources of sodium in salt and healthy modifications for heart health in kidney health: R V R/V * Vitamins and minerals: Reviewed foods sources of vitamin A and D * Healthy plate method concept: R * Physical activity: Benefits a precaution: R Patient Instructions: Include foods sources of vitamin A and vitamin D: Include sweet potato, ripe plantain twice a week with lean beef or chicken or eggs and salad with spinach, kale, tomatoes, carrots and olive oil and vinegar Add squash or carrots to beans Have a cup of vitamin D fortified milk in between meals as snack continue with physical activity , goal 30 minutes 5 days a week Keep hydrated by having water with meals/snacks take a daily multivitamin Coding Level of Care Code Nutr Indiv Subseq (81121) Diagnoses Obesity, morbid, BMI 40.0-49.9 E66.01 Time Spent (min) 30
== END 2024-09-26 09:40 | disposition home or self-care (01) ==
PROVIDERS: PCP Internal Medicine; Visit Provider Dietitian, Registered
DX: E66.01 Morbid (severe) obesity due to excess calories (principal)

== ENCOUNTER → 2024-09-26 08:45 | Outpatient (BNVA) | payer OTHER, SELFPAY | PROVIDERS: PCP Internal Medicine; Visit Provider Dietitian, Registered | DX: E11.9 Type 2 diabetes mellitus without complications (principal); E66.01 Morbid (severe) obesity due to excess calories; Z71.3 Dietary counseling and surveillance; Z68.38 Body mass index [BMI] 38.0-38.9, adult | CPT/HCPCS: 97803 ==

== ENCOUNTER 2024-10-03 07:58 | Outpatient (AMB) | payer OTHER, SELFPAY ==
--- NOTE | 2024-10-03 09:44 | MHC.PC.OV ---
Vital Signs 10/03/24 09:45 Height 5 ft 6 in Weight 234 lb BMI 37.8 BP 132/70 Blood Pressure Location Rt brachial Position Sitting Pulse 83 Pulse Source Pulse Oximeter Pulse Oximetry (%) 97 Oxygen Delivery Method Room Air Intake Visit Reasons: Disability Intake Note: Patient is here to follow up on Disability. Pt decline flu shot today. 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 She brings in a report of neuropsychological evaluation for my perusal. She believes there are some forms online that need to be downloaded and I have to complete. Patient was in a hurry and wanted to leave. [facility] Medical History (Updated 09/08/24 @ 21:50 by Kenia Hart MD) PCOS (polycystic ovarian syndrome) Obesity, morbid, BMI 40.0-49.9 Mental and behavioral problem Anxiety Depression Surgical History Hx of oral surgery Family History Father No problems noted. Mother No problems noted. Other Mental health disorder Social History Housing: Apartment Alcohol intake: never Patient Tobacco Use Status: Never used Tobacco e-Cigarette/Vaping Use: Never Used Second Hand Smoke Exposure: No service: No Current occupational status: unemployed Current occupational exposures/hazards: No Cognitive needs: No Hearing needs: No Vision needs: Yes (glasses) Female Reproductive History Menstrual Age of Menarche: 10 Questionnaire Thrive Questionnaire Date Thrive assessed: 12/10/23 RAYMUNDO-7 AMB Questionnaire RAYMUNDO-7 Date RAYMUNDO - 7 assessed: 12/10/23 Source: Developed by Drs. Bernardino Angeles, Naty Augustin, Jarivs Verduzco and colleagues, with an educational susan from [employer]. Physical exam (Primary Care) Vital Signs: Last Vital Signs Pulse 83 10/03/24 09:45 BP 132/70 10/03/24 09:45 Pulse Ox 97 10/03/24 09:45 Oxygen Delivery Method Room Air 10/03/24 09:45 BMI result Body Mass Index 37.8 Tobacco/Smoking Status: Tobacco use Status Tobacco use date assessed 10/03/24 10/03/24 10:05 Patient Tobacco Use Status Never used Tobacco 10/03/24 10:05 e-Cigarette/Vaping Use Never Used 10/03/24 10:05 Thrive Assessment: Date of Thrive Assessment Date Thrive assessed 12/10/23 10/03/24 10:05 Const Other: Apart from the vitals no other physical exam was done. Coding Level of Care Code Est Pt Level 3 (05979) Complex EM visit Add On G2211 Diagnoses Mental and behavioral problem F48.9; F69 Assessment & Plan Assessment & Plan (1) Mental and behavioral problem: Code(s): F48.9 - Nonpsychotic mental disorder, unspecified; F69 - Unspecified disorder of adult personality and behavior Category: Medical Plan: I informed the patient that somebody from [employer] will be contacting her to understand the exact forms that need to be filled out.
[2024-10-03 09:45] VITALS: BP 132/70; PULSE 83; O2SAT 97; BMI 37.8
== END 2024-10-03 11:04 | disposition home or self-care (01) ==
LOC: HO.HMCH 07:59
PROVIDERS: PCP Internal Medicine; Visit Provider Internal Medicine
DX: F48.9 Nonpsychotic mental disorder, unspecified (principal); F69 Unspecified disorder of adult personality and behavior

== ENCOUNTER → 2024-10-03 07:58 | Outpatient (BNVA) | payer OTHER, SELFPAY | PROVIDERS: PCP Internal Medicine; Visit Provider Internal Medicine | DX: F48.9 Nonpsychotic mental disorder, unspecified (principal); F69 Unspecified disorder of adult personality and behavior | CPT/HCPCS: 99212 ==

== ENCOUNTER 2024-11-03 | Outpatient (REF) | payer OTHER, SELFPAY | END 2024-11-03 00:01 | disposition home or self-care (01) | LOC: CF | PROVIDERS: PCP Internal Medicine; Visit Provider Physician Assistant Medical | DX: F84.0 Autistic disorder (principal); F41.9 Anxiety disorder, unspecified; F90.9 Attention-deficit hyperactivity disorder, unspecified type; F32.A Depression, unspecified | CPT/HCPCS: 99212 ==

== ENCOUNTER 2024-11-03 08:46 | Outpatient (AMB) | payer OTHER, SELFPAY ==
--- NOTE | 2024-11-03 08:47 | A.OFFPC_ITS ---
Vital Signs 11/03/24 08:50 Height 5 ft 6 in Weight 235 lb 6 oz BMI 38.0 BP 130/72 Blood Pressure Location Rt brachial Position Sitting Pulse 94 Pulse Source Pulse Oximeter Pulse Oximetry (%) 97 Oxygen Delivery Method Room Air Intake Visit Reasons: 6M follow up Intake Note: Patient is here to follow up on Obesity, Mental and Behavioral probems. 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 per policy Accompanied by: Self / Same As Patient Allergies No Known Allergies Allergy (Verified 11/03/24 11:38) Medication List - Last Reconciled 11/03/24 by Zoila Sims PA-C fluoxetine 20 mg PO DAILY vitamin B complex 1 tab PO DAILY Tobacco use date assessed: 11/03/24 Dental Screening Dental Screen Date: 12/10/23 [facility] Medical History (Updated 11/03/24 @ 11:42 by Zoila Sims PA-C) Vitamin A deficiency Vitamin D deficiency PCOS (polycystic ovarian syndrome) Obesity, morbid, BMI 40.0-49.9 Mental and behavioral problem Anxiety Depression Surgical History Hx of oral surgery Family History Father No problems noted. Mother No problems noted. Other Mental health disorder Social History Housing: Apartment Alcohol intake: never Patient Tobacco Use Status: Never used Tobacco e-Cigarette/Vaping Use: Never Used Second Hand Smoke Exposure: No service: No Current occupational status: unemployed Current occupational exposures/hazards: No Cognitive needs: No Hearing needs: No Vision needs: Yes (glasses) Female Reproductive History Menstrual Age of Menarche: 10 Questionnaire Thrive Questionnaire Date Thrive assessed: 12/10/23 RAYMUNDO-7 AMB Questionnaire RAYMUNDO-7 Date RAYMUNDO - 7 assessed: 12/10/23 Source: Developed by Drs. Bernardino Angeles, Naty Augustin, Jarvis Verduzco and colleagues, with an educational susan from [employer]. Physical exam (Primary Care) Vital Signs: Last Vital Signs Pulse 94 11/03/24 08:50 BP 130/72 11/03/24 08:50 Pulse Ox 97 11/03/24 08:50 Oxygen Delivery Method Room Air 11/03/24 08:50 BMI result Body Mass Index 38.0 Tobacco/Smoking Status: Tobacco use Status Tobacco use date assessed 11/03/24 11/03/24 09:03 Patient Tobacco Use Status Never used Tobacco 11/03/24 08:48 e-Cigarette/Vaping Use Never Used 11/03/24 08:48 Thrive Assessment: Date of Thrive Assessment Date Thrive assessed 12/10/23 11/03/24 08:48 Coding Level of Care Code Est Pt Prev Care 18-39y(25774) Diagnoses Autism F84.0 Anxiety F41.9 ADHD F90.9 Depression F32.A Obesity E66.9 Obesity (BMI 35.0-39.9 without comorbidity) E66.9 Vitamin D deficiency E55.9 Vitamin A deficiency E50.9 Assessment & Plan Assessment & Plan (1) Autism: Code(s): F84.0 - Autistic disorder Category: Medical Plan: Condition is stable. Patient taking medications as prescribed. Patient being followed by therapist. (2) Anxiety: Code(s): F41.9 - Anxiety disorder, unspecified Category: Medical Plan: Condition is stable. Patient taking medications as prescribed which include paroxetine. Patient being followed by therapist. (3) ADHD: Code(s): F90.9 - Attention-deficit hyperactivity disorder, unspecified type Category: Medical Plan: Condition is stable. Patient taking medications. Followed by therapist. (4) Depression: Code(s): F32.A - Depression, unspecified Category: Medical Plan: Condition is stable. Patient taking medications as prescribed which include paroxetine. Patient being followed by therapist. (5) Obesity: Code(s): E66.9 - Obesity, unspecified Category: Medical (6) Obesity (BMI 35.0-39.9 without comorbidity): Code(s): E66.9 - Obesity, unspecified Category: Medical Plan: Lifestyle & Weight: Encouraged continuation of regular physical activity and weight management strategies. (7) Vitamin D deficiency: Code(s): E55.9 - Vitamin D deficiency, unspecified Category: Medical Plan: Laboratory Tests 08/30/24 09:03 Vitamin A 22 L 25-OH Vitamin D Total 15.4 L (8) Vitamin A deficiency: Code(s): E50.9 - Vitamin A deficiency, unspecified Category: Medical Plan Plan - Autism Spectrum Disorder: Documentation will be reviewed and signed for [employer] benefits if criteria are met. - Anxiety: Continued management with fluoxetine as prescribed by current therapist. - Insomnia: Continues with melatonin for sleep improvement. - Breast Pain: Monitor for any changes and advised to perform self-exams regularly. - Diarrhea: Monitor dietary habits for potential irritants. - Headache: Continue with OTC analgesics as needed. - Lifestyle & Weight: Encouraged continuation of regular physical activity and weight management strategies. - Preventive: Recommended regular gynecological follow-ups, although past Pap smear attempt was unsuccessful due to discomfort. - Patient noted to have vitamin-D and vitamin a deficiency. Patient instructed to take [id number] multivitamin. Patient understood. Scribe Plan - Not visible on output: History of Present Illness The patient is a 24-year-old female presenting with a need for medical documentation to support her application for disability benefits. She states she requires her doctor to sign documents confirming her diagnosis of Autism Spectrum Disorder and its impact on her ability to support herself independently. 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 She notes challenges due to her anxiety and autism, especially in communication. Her living situation includes her the [facility], who is disabled, and other family members who are also unemployed and receive special benefits. She experiences chronic sleep difficulties and utilizes melatonin and fluoxetine, prescribed by her therapist at [facility], for anxiety which assists her sleep. Despite challenges with mobility, primarily due to obesity-related discomfort in her legs, she attempts to exercise regularly. She is not currently experiencing functional impairments significant enough to affect walking or performing daily self-care. However, she occasionally experiences a limp when very tired. She reports recent episodes of breast pain, attributing it partly to her bra size or weight, but denies detecting any lumps. There is no personal history of breast cancer, though her mother succumbed to gastric cancer. The patient has frequent headaches managed with [id number] medications, and recent persistent diarrhea that she associates with dietary habits. She also experiences frequent coughing fits and has a noted history of tachyphylaxis in her respiratory system, which exacerbates at night. Social History - Lives with father (disabled), stepmother, and younger brother who are on b enefits. - Works seasonally at [email or web address], hours are variable. - Uses public transport due to not driving, despite having a license. - Exercises regularly with activities such as jumping jacks and modified pushups. - Eats less to manage weight, but experiences persistent diarrhea. - Abstains from alcohol, drugs, and smoking. - Not sexually active. Review of Systems - General: Denies recent weight changes. Reports headaches and persistent diarrhea. - Cardiovascular: Denies chest pain or palpitations. - Respiratory: Denies dyspnea but reports frequent coughing fits. - Gastrointestinal: Reports bowel regularity without black or bloody stools. - Genitourinary: Denies hematuria. - Neurological: Denies dizziness. Reports frequent headaches. - Musculoskeletal: Reports occasional leg pain and limping with fatigue. - Breast: Reports bilateral breast pain. Denies detected lumps. - Psychiatric: Denies depressive symptoms. Receives fluoxetine for anxiety. - Skin: Denies skin changes. Physical Exam - patient alert oriented. Not in any acute distress. Normal steady gait. No focal deficits. Moving all extremities - Respiratory- Lung roman are clear to auscultation bilaterally. No wheezes ra les or rhonchi. - Cardiovascular- Regular rhythm without murmurs. - Neurological- No neurological deficits noted, normal reflexes. - Thyroid- No palpable nodules. - Abdomen- Non-tender on palpation, no abnormal findings. - Breast- No palpable masses or tenderness noted during the exam. No abnormalities noted on breast exam. Plan - Autism Spectrum Disorder: Documentation will be reviewed and signed for [employer] benefits if criteria are met. - Anxiety: Continued management with fluoxetine as prescribed by current therapist. - Insomnia: Continues with melatonin for sleep improvement. - Breast Pain: Monitor for any changes and advised to perform self-exams regularly. - Diarrhea: Monitor dietary habits for potential irritants. - Headache: Continue with OTC analgesics as needed. - Lifestyle & Weight: Encouraged continuation of regular physical activity and weight management strategies. - Preventive: Recommended regular gynecological follow-ups, although past Pap smear attempt was unsuccessful due to discomfort. Patient was informed and verbally consented to the use of an ambient scribe for clinic note documentation during this visit. Discussion Notes I discussed with the patient her current treatment and her need for documentation for disability benefits. Emphasized the importance of regular monitoring of breast health and encouraged her to remain consistent with her prescribed medications for anxiety. We reviewed her approach to weight management and encouraged her regular exercise routine while managing her dietary intake to address diarrhea. Consent was obtained to proceed with reviewing her documentation for support in her application for disability benefits. Patient Instructions - Continue current medications as prescribed. - Try to identify any dietary causes for diarrhea; seek modification as needed. - Perform regular breast self-examinations; report any changes. - Maintain regular exercise routine. - Schedule follow-up as needed to ensure continuity of care, including mental health support. - Return if symptoms or issues worsen.
[2024-11-03 08:50] VITALS: BP 130/72; PULSE 94; O2SAT 97; BMI 38.0
== END 2024-11-03 10:17 | disposition home or self-care (01) ==
PROVIDERS: PCP Internal Medicine; Visit Provider Physician Assistant Medical
DX: F84.0 Autistic disorder (principal); E66.9 Obesity, unspecified; Z68.38 Body mass index [BMI] 38.0-38.9, adult; F41.9 Anxiety disorder, unspecified; F90.9 Attention-deficit hyperactivity disorder, unspecified type; F32.A Depression, unspecified; E55.9 Vitamin D deficiency, unspecified; E50.9 Vitamin A deficiency, unspecified

== ENCOUNTER 2024-11-16 08:48 | Outpatient (AMB) | payer OTHER, SELFPAY ==
[2024-11-16 09:07] VITALS: BMI 37.8
--- NOTE | 2024-11-16 09:07 | A.OFFVIS_ITS ---
VS Expanded 11/16/24 09:07 Height 5 ft 6 in Weight 234 lb 2.095 oz BMI 37.8 Intake Visit Reasons: Obesity/Confirmed Allergies No Known Allergies Allergy (Verified 11/03/24 11:38) Nutrition Presentation Details: Pt presents for MNT f/u for obesity Pt presents with her dad during this appointment Pt verbalizes working on diet modifications and also increasing on physical activity taking vitamins- no including nuts/seeds in diet - reports having stopped for some time fruits/d: 0-1 vegetables:s tarchy veg (yuca, name) likes sweet potato not including BS Monitoring Most Recent Diabetes Results: Cholesterol 114 mg/dL (<200) 08/30/24 HDL Cholesterol 27 mg/dL (>40) L 08/30/24 Triglycerides 70 mg/dL (<150) 08/30/24 Creatinine 0.79 mg/dL (0.5-1.4) 08/30/24 Blood Urea Nitrogen 8 mg/dL (9-16) L 08/30/24 Sodium 141 mmol/L (135-145) 08/30/24 Potassium 3.8 mmol/L (3.3-5.1) 08/30/24 Chloride 107 mmol/L (96-108) 08/30/24 Carbon Dioxide 24 mmol/L (22-29) 08/30/24 Calcium 9.2 mg/dL (8.4-10.2) 08/30/24 AST 18 U/L (5-31) 08/30/24 ALT 15 U/L (0-31) 08/30/24 Total Protein 6.9 g/dL (6.5-8.0) 08/30/24 Albumin 3.9 g/dL (3.5-5.0) 08/30/24 [facility] Medical History (Updated 11/03/24 @ 11:42 by Zoila Sims PA-C) Vitamin A deficiency Vitamin D deficiency PCOS (polycystic ovarian syndrome) Obesity, morbid, BMI 40.0-49.9 Mental and behavioral problem Anxiety Depression Surgical History Hx of oral surgery Family History Father No problems noted. Mother No problems noted. Other Mental health disorder Social History Housing: Apartment Alcohol intake: never Patient Tobacco Use Status: Never used Tobacco e-Cigarette/Vaping Use: Never Used Second Hand Smoke Exposure: No service: No Current occupational status: unemployed Current occupational exposures/hazards: No Cognitive needs: No Hearing needs: No Vision needs: Yes (glasses) Female Reproductive History Menstrual Age of Menarche: 10 Assessment & Plan Assessment & Plan (1) Obesity, morbid, BMI 40.0-49.9: Code(s): E66.01 - Morbid (severe) obesity due to excess calories Category: Medical Plan: Wt: 119 Kg (04/2024 ), 117 kg (05/2024), 114 kg (07/23), 106 kg (11/22) Est kcal needs as per MSJ: 2300 (40% carb, 30% protein/fat) Est fluid needs as per 25-30 ml/d: 3600 Est prot per day as per 1 g/kg bw: 119 Recommend fiber intake : 8-10 g per day and gradually increase to 25-28 g per day for women and 35-38 g for men or as tolerated Recommend sodium intake per day : less than 2300 mg Educated patient on: ( R = reviewed V = verbalizes understanding N/R = needs review N/A = not applicable * Food sources of carbohydrate, adequate serving sizes and its role in various health conditions: R * Differences between complex carbohydrates a simple carbohydrates, role of fiber in diet: reviewed * Lean protein sources of foods: R * Differences between types of fats and role in diet (mono on saturated fat fatty acids, saturated fatty acids, trans fats): R V N/R * Food sources of sodium in salt and healthy modifications for heart health in kidney health: R V R/V * Vitamins and minerals: Reviewed foods sources of vitamin A and D, Zinc * Healthy plate method concept: R * Physical activity: Benefits a precaution: R Patient Instructions: Include at least 2 servings of fruits per day (can try fruit/veg shake with nuts as a meal - see list of variety to make) Bedtime snack choose a fruit and peanut butter or milk and peanut butter or yogurt with fruit Continue with physical activity: walk 30 minutes 5 times a week Coding Level of Care Code Nutr Indiv Subseq (96625) Diagnoses Obesity, morbid, BMI 40.0-49.9 E66.01 Time Spent (min) 30
== END 2024-11-16 09:44 | disposition home or self-care (01) ==
PROVIDERS: PCP Internal Medicine; Visit Provider Dietitian, Registered
DX: E66.01 Morbid (severe) obesity due to excess calories (principal)

== ENCOUNTER → 2024-11-16 08:48 | Outpatient (BNVA) | payer OTHER, SELFPAY | PROVIDERS: PCP Internal Medicine; Visit Provider Dietitian, Registered | DX: E66.01 Morbid (severe) obesity due to excess calories (principal); Z68.37 Body mass index [BMI] 37.0-37.9, adult | CPT/HCPCS: 97803 ==

== ENCOUNTER 2025-04-05 00:44 | Emergency (ER) | payer OTHER, SELFPAY ==
--- NOTE | ~2025-04-05 | XR_ITS ---
CLINICAL HISTORY: shortness of breath 2 view chest x-ray Comparison: DX/SR - XR CHEST 2V - 08/30/24 09:28 EDT Findings: The lungs are clear. Heart size is normal. No acute fracture. IMPRESSION: 1. No acute findings. This document has been electronically signed by: Josh Franks MD on 04/05/2025 04:29:58
--- NOTE | ~2025-04-05 | CT_ITS ---
CLINICAL HISTORY: abdominal pain and vomiting CT abdomen and pelvis with contrast Comparison: CT/[place]/SR - CT ABDOMEN PELVIS WO IV CON - 05/25/24 06:16 EDT Findings: The lung bases are clear. Hepatomegaly. No urolithiasis. Large colonic stool burden. No bowel obstruction. Prominent mesenteric nodes, nonspecific. Bilateral ovarian cysts, on the right measuring 3.6 cm. This may be further evaluated with ultrasound. Anteverted uterus with prominent fluid-filled uterine cavity, may be physiologic. Normal appendix. Multilevel Schmorl's nodes. IMPRESSION: No acute findings. Additional findings as described. This document has been electronically signed by: Josh Franks MD on 04/05/2025 04:30:08
[2025-04-05 00:49] VITALS: BP 116/57; PULSE 101; RESP 20; TEMP 37.2; O2SAT 98; BMI 37.1
[2025-04-05 01:18] LABS: MANUAL DIFF FLAG NO
[2025-04-05 01:19] LABS: Basophils Percent Auto 0.2 % (0-2); Eosinophils Absolute Auto 0.1 X10*3/uL (0.0-0.4); Eosinophils Percent Auto 0.3 % (0-4); Hematocrit 46.9 % (37.0-47.0); Hemoglobin 15.7 g/dl (12.0-16.0); Imm Gran Abs Auto 0.08 X10*3/uL (0.00-0.03); Imm Gran Pct Auto 0.5 % (0.0-0.4); Lymphocytes Absolute Auto 1.2 X10*3/uL (1.2-4.9); Lymphocytes Percent Auto 6.7 % (20-40); Mean Corpuscular HGB Conc 33.5 g/dl (31.0-35.0); Mean Corpuscular Hemoglobin 28.1 pg (27.0-33.0); Mean Corpuscular Volume 84.1 fL (80.0-98.0); Mean Platelet Volume 12.4 fL (9.4-12.3); Monocytes Absolute Auto 0.9 X10*3/uL (0.1-1.2); Monocytes Percent Auto 4.8 % (2-11); Neutrophils Absolute Auto 15.3 x10*3/uL (2.0-8.3); Neutrophils Percent Auto 87.5 % (45-73); Platelet Count 208 X10*3/uL (160-400); Red Blood Count 5.58 X10*6/uL (4.20-5.50); White Blood Count 17.5 X10*3/uL (4.8-10.8)
[2025-04-05 01:37] LABS: IDNOW Serial# 58CA691E
[2025-04-05 01:38] LABS: Strep A Nucleic Acid Negative (Negative)
[2025-04-05 01:54] LABS: Influenza A PCR NEGATIVE (Negative); Influenza B PCR NEGATIVE (Negative); Resp Syncy Virus RNA Qual PCR NEGATIVE (Negative); SARS COV2 PCR INHOUSE NEGATIVE (Negative)
[2025-04-05 02:03] LABS: Alanine Aminotransferase 10 U/L (0-31); Alkaline Phosphatase 70 U/L (39-117); Anion Gap 12 (12-20); Aspartate Amino Transferase 16 U/L (5-31); Bilirubin Total 0.4 mg/dL (0.0-1.0); Blood Urea Nitrogen 10 mg/dL (9-16); Carbon Dioxide 24 mmol/L (22-29); Chloride 105 mmol/L (96-108); Creatinine Clr Calc Pharmacy 114.4; Estimated Glomerular Filt Rate > 60; Glucose Random 121 mg/dL (60-115); Lipase 20 U/L (8-78); Potassium 3.8 mmol/L (3.3-5.1); Sodium 137 mmol/L (135-145); Total Protein 6.9 g/dL (6.5-8.0)
[2025-04-05 02:15] VITALS: BP 109/63; PULSE 99; RESP 16; TEMP 37.8; O2SAT 96
[2025-04-05] MEDS: ondansetron HCL 4 MG/2 ML VIAL IVPUSH (02:15)
[2025-04-05] MEDS: Ketorolac Tromethamine 30 MG/ML VIAL IVPUSH (02:15)
[2025-04-05] MEDS: 0.9 % Sodium Chloride 1,000 ML 999 ML IV (02:15)
--- NOTE | 2025-04-05 02:28 | PC.NURSE ---
PA aware of vitals. iv established, pt medicated per mar. plan for imaging. pt currently obtaining urine sample.
[2025-04-05 02:51] LABS: Appearance Urine Clear; Color Urine Yellow; Glucose Urine UA Negative (Negative); Leukocyte Esterase Urine Negative (Negative); Nitrite Urine Negative (Negative); PH 5.5 (5.0-9.0); Specific Gravity - Urine <= 1.005 (1.005-1.025); Urine Blood Negative (Negative); Urine Ketones Negative (Negative); Urine Protein Negative (Neg-Trace)
--- NOTE | 2025-04-05 02:57 | ED.GENADULT ---
HPI - General Adult General Chief complaint: General Medical Stated complaint: multiple complaints Time Seen by Provider: 04/05/25 01:44 Source: patient, RN notes reviewed and old records reviewed Mode of arrival: ambulatory Limitations: no limitations History of Present Illness ED Provider: Diallo GREER narrative: 25-year-old female with past medical history significant for obesity, polycystic ovarian syndrome, autism spectrum disorder, anxiety, depression presents for evaluation of ?not feeling well. Patient reports that for the last few days she has had fevers and chills, headache, sore throat, dry cough. She had some abdominal pain this afternoon that has since resolved. She has nausea but no vomiting She believes that she has had some sick contacts but she is unsure what they had Denies any recent travel Her symptoms feel consistent to when she has had COVID in the past Related Data Home Medications ?Medication ?Instructions ?Recorded ?Confirmed fluoxetine 20 mg capsule 20 mg PO DAILY 07/21/24 11/03/24 vitamin B complex 1 tab PO DAILY 07/21/24 11/03/24 Previous Rx's ?Medication ?Instructions ?Recorded acetaminophen 500 mg capsule 1,000 mg (2 x 500 mg) PO Q8H PRN 04/05/25 fever or pain #14 caps ibuprofen 400 mg tablet 400 mg PO Q6H PRN pain #14 tabs 04/05/25 ondansetron 4 mg disintegrating 4 mg PO Q6H PRN nausea and 04/05/25 tablet vomiting #10 tabs Allergies Allergy/AdvReac Type Severity Reaction Status Date / Time No Known Allergies Allergy Verified 04/05/25 00:53 Review of Systems Constitutional: Constitutional: Reports body ache(s), Reports chills, Reports fatigue, Reports fever(s) and Reports headache(s) Eyes: Eyes: Denies blurry vision ENT: Reports headache(s) and Reports sore throat Cardiovascular: Cardiovascular: Denies chest pain and Reports dyspnea Respiratory: Respiratory: Reports cough and Reports dyspnea Gastrointestinal: Gastrointestinal: Reports abdominal pain, Denies diarrhea, Denies loose stools, Reports nausea and Denies vomiting Genitourinary: Genitourinary: Denies dysuria Musculoskeletal: Musculoskeletal: Denies back pain Integumentary/Breasts: Skin/Breast: Denies rash Neurologic: Reports headache(s) Endocrine: Endocrine: Reports fatigue [facility] Past Medical History Medical History (Updated 04/05/25 @ 05:56 by Zeus Hurtado MD) Vitamin A deficiency Vitamin D deficiency PCOS (polycystic ovarian syndrome) Obesity, morbid, BMI 40.0-49.9 Mental and behavioral problem Anxiety Depression Surgical History Hx of oral surgery Family History Family History Father No problems noted. Mother No problems noted. Other Mental health disorder Social History Social History Housing: Apartment Alcohol intake: never Patient Tobacco Use Status: Never used Tobacco Smoked in Last 30 Days: No e-Cigarette/Vaping Use: Never Used Second Hand Smoke Exposure: No Use of substances other than those prescribed or required for medical reasons: No Advance Directives: No Advance Directives Information Provided: Yes Do you have a plan to hurt others: No Plan service: No Current occupational status: unemployed Current occupational exposures/hazards: No Cognitive needs: No Hearing needs: No Vision needs: Yes (glasses) Physical Exam ED Vital Signs: Vital Signs - 24 hr 04/05/25 00:49 04/05/25 02:15 Temperature 99 F 100.1 F Pulse Rate 101 H 99 Respiratory Rate 20 16 Blood Pressure 116/57 L 109/63 Pulse Oximetry 98 96 Oxygen Delivery Method Room Air Room Air BMI result Body Mass Index 37.1 Const General: healthy appearing, comfortable, no acute distress, alert and awake Nutritional Appearance: well nourished Orientation/consciousness: patient oriented x3 HENMT Other: Mildly erythematous retropharynx without tonsillar exudates. Uvula is midline Head: Yes normocephalic and Yes atraumatic Eyes Eyelids: Yes eyelids normal Conjunctivae: conjunctivae normal Sclerae: sclerae normal Corneas: corneas normal Pupils: Equal, round and reactive pupils present EOM: EOMs intact bilaterally Neck Neck: Yes full ROM Resp Effort & Inspection: normal respiratory effort, able to speak in complete sentences, no audible wheezes and not labored Auscultation: clear to auscultation bilaterally Cardio Rate: regular rate Rhythm: regular rhythm GI Inspection: No distended Palpation (GI): Soft to palpation, not firm, nontender, no guarding and not rigid Skin General skin exam: elasticity normal Neuro General: patient oriented x3 Cranial nerves: Yes Equal, round and reactive pupils present and Yes Bilaterally intact EOM present Cognition (Neuro): normal cognition Extrem Other: Moving all extremities well without any obvious deformities Course Reevaluation(s) Reevaluation #1: The patient is a 25-year-old female who was signed out to me at change of shift by the physician clerical dentist assistant. The patient has been complaining of symptoms for about 24 hours. She says her symptoms began with a sore throat. She also has some bilateral flank pain. She believes that she has had a fever. She has also had a headache, chills, body aches, and nausea. She has had a negative rapid strep. A negative mono screen. A negative swab for COVID, RSV, and influenza. She had a white count quite high at 17.5. She has a negative chest x-ray. A negative CT of the abdomen and pelvis. In the emergency room she has been feeling better after receiving ketorolac and ondansetron. On my exam she looks quite well. The posterior pharynx is unremarkable. No significant cervical adenopathy. No trismus. The patient will be discharged with a prescriptions for ibuprofen and acetaminophen and ondansetron. She should return if worse.. Time: 06:01 Medications Administered Discontinued Medications Generic Name Dose Route Start Last Admin Trade Name Freq PRN Reason Stop Dose Admin Sodium Chloride 1,000 mls @ 999 mls/hr 04/05/25 02:00 04/05/25 03:10 Ns IV 04/05/25 03:00 Infused .Q1H1M APRIL Infusion Iohexol 85 ml 04/05/25 03:31 04/05/25 03:31 Iohexol 350 Mg/Ml 100 Ml Infus..Btl IV 04/05/25 03:32 85 ml ONCE ONE Administration Ketorolac Tromethamine 30 mg 04/05/25 01:52 04/05/25 02:15 Ketorolac Tromethamine 30 Mg/Ml Vial IVPUSH 04/05/25 01:53 30 mg ONCE ONE Administration Ondansetron HCl 4 mg 04/05/25 01:52 04/05/25 02:15 Ondansetron Hcl 4 Mg/2 Ml Vial IVPUSH 04/05/25 01:53 4 mg ONCE ONE Administration Medical Decision Making Medical Decision Making [facility] Narrative: 25-year-old female with past medical history as above presents for evaluation of flu-like symptoms. She was slightly tachycardic to 101 arrival. Blood pressure was low normal at 116/57. Attempted started to arrives to 100.1 orally. Her lab work significant for a leukocytosis of 17.5 1000 with a left shift. No bandemia. Chemistries without any concerning abnormalities. Flu swabs negative, strep test negative. I added on a mono spot, a chest x-ray. She does not currently have any abdominal tenderness but I do not have a source of fever and she reported severe abdominal pain earlier. We will get a CT scan of the abdomen pelvis. Urinalysis is pending. Differential Diagnosis Differential Diagnoses: The differential diagnosis associated with the presentation includes Abdominal pain Viral syndrome Influenza COVID-19 UTI Lab Data [facility] Lab Attestation statement: I reviewed the patient's lab results. As above 04/05/25 01:11 04/05/25 01:11 Labs: Lab Results 04/05/25 04/05/25 04/05/25 Range/Units 01:10 01:11 02:44 WBC 17.5 H (4.8-10.8) X10*3/uL RBC 5.58 H (4.20-5.50) X10*6/uL Hgb 15.7 (12.0-16.0) g/dl Hct 46.9 (37.0-47.0) % MCV 84.1 (80.0-98.0) fL MCH 28.1 (27.0-33.0) pg MCHC 33.5 (31.0-35.0) g/dl RDW 14.0 (11.0-16.0) % Plt Count 208 D (160-400) X10*3/uL MPV 12.4 H (9.4-12.3) fL Immature Gran % (Auto) 0.5 H (0.0-0.4) % Neut % (Auto) 87.5 H (45-73) % Lymph % (Auto) 6.7 L (20-40) % Wharton % (Auto) 4.8 (2-11) % Eos % (Auto) 0.3 (0-4) % Baso % (Auto) 0.2 (0-2) % Lymph # (Auto) 1.2 (1.2-4.9) X10*3/uL Wharton # (Auto) 0.9 (0.1-1.2) X10*3/uL Eos # (Auto) 0.1 (0.0-0.4) X10*3/uL Baso # (Auto) 0.0 (0.0-0.2) X10*3/uL Abs Immat Gran (auto) 0.08 H (0.00-0.03) X10*3/uL Absolute Neuts (auto) 15.3 H (2.0-8.3) x10*3/uL Absolute Nucleated RBC 0.000 (0.0-0.012) X10*3/uL Nucleated RBC % (auto) 0.0 (0.0-0.2) /100WBC Sodium 137 (135-145) mmol/L Potassium 3.8 (3.3-5.1) mmol/L Chloride 105 (96-108) mmol/L Carbon Dioxide 24 (22-29) mmol/L Anion Gap 12 (12-20) BUN 10 (9-16) mg/dL Creatinine 0.87 (0.5-1.4) mg/dL Estim Creat Clear Calc 114.4 Estimated GFR > 60 Random Glucose 121 H (60-115) mg/dL Calcium 9.0 (8.4-10.2) mg/dL Total Bilirubin 0.4 (0.0-1.0) mg/dL AST 16 (5-31) U/L ALT 10 (0-31) U/L Alkaline Phosphatase 70 (39-117) U/L C-Reactive Protein 4.59 H (< or = 0.50) mg/dL Total Protein 6.9 (6.5-8.0) g/dL Albumin 4.0 (3.5-5.0) g/dL Lipase 20 (8-78) U/L Beta HCG, Quant < 2 mIU/mL Urine Color Yellow Urine Appearance Clear Urine pH 5.5 (5.0-9.0) Ur Specific Walters <= 1.005 (1.005-1.025) Urine Protein Negative (Neg-Trace) mg/dL Urine Glucose (UA) Negative (Negative) mg/dL Urine Ketones Negative (Negative) mg/dL Urine Blood Negative (Negative) Urine Nitrite Negative (Negative) Ur Leukocyte Esterase Negative (Negative) Urine RBC 0-2 (0-2) /HPF Urine WBC 0-5 (0-5) /HPF Ur Squamous Epith Cells 0-2 (0-2) /HPF Urine Bacteria None Seen (None Seen) Hyaline Casts 0-2 (0-2) /LPF Urine Test Cancelled Monoscreen Negative (Negative) Influenza Type A (PCR) NEGATIVE (Negative) Influenza Type B (PCR) NEGATIVE (Negative) RSV RNA Qual (PCR) NEGATIVE (Negative) SARS-CoV-2 RNA (RT-PCR) NEGATIVE (Negative) S. pyogenes GrpA CANDICE Negative (Negative) Independent Interpretation I performed an independent interpretation of an: Plain X-Ray (No focal consolidation) Discharge Plan Discharge Clinical Impression: Viral illness Patient Disposition: Home, Self-Care Additional Instructions: Your testing in the emergency room has ultimately proved very reassuring. I think you probably have some kind of viral illness that will likely get better on its own in a few days. I have sent prescriptions for ibuprofen and acetaminophen to your pharmacy. You may use these medications for pain and discomfort. I have also sent a prescription for a medication called ondansetron which you may use as needed for nausea. Please plan on following up with your regular doctor if you were not getting better in a day or 2. Return to the emergency room if significantly worse. Prescriptions: New ibuprofen 400 mg tablet 400 mg PO Q6H PRN (Reason: pain) Qty: 14 0RF ondansetron 4 mg tablet,disintegrating 4 mg PO Q6H PRN (Reason: nausea and vomiting) Qty: 10 0RF acetaminophen 500 mg capsule 1,000 mg PO Q8H PRN (Reason: fever or pain) Qty: 14 0RF No Action vitamin B complex Tablet 1 tab PO DAILY fluoxetine 20 mg capsule 20 mg PO DAILY Referrals: Jhon Recio MD [Primary Care Provider] - Print Language: Bruneian
[2025-04-05 03:05] LABS: HCG Quantitative < 2 mIU/mL
[2025-04-05 03:10] LABS: Monotest Negative (Negative)
[2025-04-05 03:11] LABS: Bacteria Urine None Seen (None Seen); Hyaline Casts Urine 0-2 /LPF (0-2); RBC Urine 0-2 /HPF (0-2); Squamous Epithelial Cell Urine 0-2 /HPF (0-2); WBC Urine 0-5 /HPF (0-5)
[2025-04-05] MEDS: iohexoL 350 MG/ML 100 ML INFUS..BTL 85 ML IV (03:31)
[2025-04-05 04:27] LABS: C Reactive Protein 4.59 mg/dL (< or = 0.50)
[2025-04-05 06:18] VITALS: BP 104/64; PULSE 89; RESP 16; TEMP 37; O2SAT 98
== END 2025-04-05 06:19 | disposition home or self-care (01) ==
PROVIDERS: Physician Assistant; Emergency Provider Emergency Medicine; PCP Internal Medicine
DX: B34.9 Viral infection, unspecified (principal); J02.9 Acute pharyngitis, unspecified; R50.9 Fever, unspecified; R51.9 Headache, unspecified; R06.02 Shortness of breath; R10.2 Pelvic and perineal pain; R11.2 Nausea with vomiting, unspecified; M79.10 Myalgia, unspecified site; Z03.818 Encounter for observation for suspected exposure to other biological agents ruled out; Z79.899 Other long term (current) drug therapy
CPT/HCPCS: 0241U; 36415; 71046; 74177; 80053; 81001; 83690; 84702; 85025; 86140; 86308; 87651; 96361; 96374; 96375; 99284; 99285; J1885; J2405; Q9967

== ENCOUNTER → 2025-04-05 02:21 | Outpatient (BNV) | payer OTHER, SELFPAY | PROVIDERS: Emergency Provider Emergency Medicine; PCP Internal Medicine; Visit Provider Radiology Diagnostic Radiology | DX: R10.9 Unspecified abdominal pain (principal); R11.10 Vomiting, unspecified; R06.02 Shortness of breath | CPT/HCPCS: 71046; 74177 ==

== ENCOUNTER 2025-05-11 14:17 | Outpatient (AMB) | payer OTHER, SELFPAY ==
--- NOTE | 2025-05-11 14:50 | A.OFFPC_ITS ---
Vital Signs 05/11/25 14:52 Height 5 ft 5 in Weight 219 lb 2 oz BMI 36.5 BP 130/78 Blood Pressure Location Lt brachial Position Sitting Pulse 97 Pulse Source Pulse Oximeter Temp 97.5 F Temp Source Temporal Artery Scan Pulse Oximetry (%) 97 Oxygen Delivery Method Room Air Intake Visit Reasons: Physical Intake Note: Patient is here today for a physical. Hand Glove Cleaner Required: No Educational Administration Teacher: Not Required per policy Accompanied by: Self / Same As Patient Allergies No Known Allergies Allergy (Verified 05/11/25 15:03) Medication List - Last Reconciled 05/11/25 by Zoila Sims PA-C acetaminophen 1,000 mg (2 x 500 mg) PO Q8H PRN fluoxetine 20 mg PO DAILY ibuprofen 400 mg PO Q6H PRN ondansetron 4 mg PO Q6H PRN vitamin B complex 1 tab PO DAILY Tobacco use date assessed: 05/11/25 Dental Screening Dental Screen Date: 05/11/25 Did you have a dental visit in the last 12 months?: No Did you have a dental problem in the last 6 months where you did not have access to dental care?: No Was dental information given to patient?: Patient has dentist HPI Physical HPI Details The patient is a 25-year-old female presenting with an annual physical examination. She has a history of Autism Spectrum Disorder, Anxiety Disorder, Attention-Deficit/Hyperactivity Disorder (ADHD), Major Depressive Disorder, obesity, and Vitamin D deficiency. The patient reports feeling fine currently and is followed by a therapist for her mental health conditions. The patient has struggled with obesity but is actively working on weight management. She is currently undergoing testosterone therapy as part of her gender transition, which she has not disclosed to her family. The therapy is managed through a site called [facility], where clinicians oversee her treatment. Recently, the patient experienced a viral infection, leading to an elevated white blood cell count of 17,000 and elevated glucose levels. She visited the ER on April 05 due to the viral infection, which has since resolved. Her liver enzymes were normal, and there was no trace of COVID-19 or abnormalities in her urine. Social History - Gender transition: The patient is unde rgoing testosterone therapy as part of her gender transition, which is managed through [facility]. - Weight management: The patient is nathan serna working on weight management to meet BMI requirements for breast reduction surgery. [facility] Medical History Elevated glucose level Elevated WBC count Annual physical exam Gender dysphoria in adult Other specified inflammation of vagina and vulva Long-term current use of testosterone replacement therapy Vitamin A deficiency Vitamin D deficiency PCOS (polycystic ovarian syndrome) Obesity, morbid, BMI 40.0-49.9 Mental and behavioral problem Anxiety Depression Surgical History Hx of oral surgery Family History Father No problems noted. Mother No problems noted. Other Mental health disorder Social History Housing: Apartment Alcohol intake: never Patient Tobacco Use Status: Never used Tobacco e-Cigarette/Vaping Use: Never Used Second Hand Smoke Exposure: No service: No Current occupational status: unemployed Current occupational exposures/hazards: No Cognitive needs: No Hearing needs: No Vision needs: Yes (glasses) Female Reproductive History Menstrual Age of Menarche: 10 Questionnaire PHQ-9 Over the last 2 weeks, how often have you been bothered by any of the following problems? 1. Little interest or pleasure in doing things: not at all 2. Feeling down, depressed, or hopeless: not at all 3. Trouble falling or staying asleep, or sleeping too much: several days 4. Feeling tired or having little energy: several days 5. Poor appetite or overeating: more than half the days 6. Feeling bad about yourself - or that you are a failure or have let yourself or your family down: not at all 7. Trouble concentrating on things, such as reading the newspaper or watching television: not at all 8. Moving or speaking so slowly that other people could have noticed. Or the opposite - being so fidgety or restless that you have been moving around a lot more than usual: not at all 9. Thoughts that you would be better off or of hurting yourself in some way: not at all Total score: 4 Depression Screening Interpretation: Positive Depression Screening Follow-up: Existing condition and In treatment Depression Screening Done: Yes 74853 - PHQ-9 Billing: Yes Source: Developed by Drs. Bernardino Angeles, Naty Augustin, Jarvis Verduzco and colleagues, with an educational susan from [employer]. Thrive Questionnaire Date Thrive assessed: 05/04/25 I am a: Patient What is your living situation today?: I have a steady place to live Within the past 12 months, did the food you bought not last and you didn't have the money to get more?: Never true Within the past 12 months, did you worry whether your food would run out before you got money to buy more?: Sometimes True Do you have trouble paying for medicines?: No Do you have trouble getting transportation to medical appointments?: No Do you have trouble paying your heating and electricity bill?: No Do you have trouble taking care of your child, family member or friend?: No Do you have trouble with day-to-day activities such as bathing, preparing meals, shopping, managing finances, etc.?: No Are you currently unemployed and looking for a job?: Yes Are you interested in more education?: No Please select the resources that you would like help with: Job search/training Currently or been in a relationship where the following occur: I choose not to answer THRIVE Score: 1 RAYMUNDO-7 AMB Questionnaire RAYMUNDO-7 Date RAYMUNDO - 7 assessed: 05/11/25 Feeling nervous, anxious, or on edge: 0 = Not at all Not being able to stop or control worryin = Not at all Worrying too much about different things: 0 = Not at all Trouble relaxin = Not at all Being so restless that it is hard to sit still: 0 = Not at all Becoming easily annoyed or irritable: 0 = Not at all Feeling afraid as if something awful might happen: 0 = Not at all Total RAYMUNDO-7 score (0-4 normal; 5-9 mild; 10-14 moderate; 15-21 severe): 0 Source: Developed by Drs. Bernardino Angeles, Naty Augustin, Jarvis Verduzco and colleagues, with an educational susan from [employer]. RAYMUNDO-7 Assessment Billing RAYMUNDO-7 Assessment Tool: RAYMUNDO-7 Assessment 28684 Review of Systems Const Details: - General: Reports feeling fine, denies any current symptoms. - Cardiovascular: Denies chest pain, palpitations. - Respiratory: Denies dyspnea, cough. - Gastrointestinal: Denies black or bloody stools. - Dermatological: Denies rashes. - Neurological: Reports occasional severe headaches relieved by ibuprofen, denies weakness or changes in vision. - Genitourinary: Reports inflammation due to testosterone therapy, denies pain or itching. Physical exam (Primary Care) Vital Signs: Last Vital Signs Temp 97.5 F 05/11/25 14:52 Pulse 97 05/11/25 14:52 BP 130/78 05/11/25 14:52 Pulse Ox 97 05/11/25 14:52 Oxygen Delivery Method Room Air 05/11/25 14:52 Care Plan Goal for BP management: <140/90 at Goal BMI result Body Mass Index 36.5 BMI Assessment/Plan discussion: High BMI High, discussed plan: lifestyle, weight reduction, dietary, physical activity, alcohol moderation and other Tobacco/Smoking Status: Tobacco use Status Tobacco use date assessed 05/11/25 05/11/25 14:58 Patient Tobacco Use Status Never used Tobacco 05/11/25 14:58 e-Cigarette/Vaping Use Never Used 05/11/25 14:58 PHQ-9: PHQ-9 Score PHQ-9: Total score 4 05/11/25 14:58 Depression Screening Interpretation: Positive Depression Screening Follow-up: Existing condition and In treatment Thrive Assessment: Date of Thrive Assessment Date Thrive assessed 05/04/25 05/11/25 14:58 Currently or been in a relationship where the following occur: I choose not to answer Const Other: Appearance: Alert. Oriented X3. No acute distress. Head: Normal external exam. Normocephalic. Atraumatic. Eyes: Pupils are equal, round, and reactive to light. Extraocular movements intact. Conjunctiva and sclera normal. Eyelids normal. Ears: External auditory canal normal. Tympanic membranes normal. Throat: Pharynx normal. Uvula midline. Moist mucous membranes. Neck: Normal inspection. Neck supple. Full range of motion. No adenopathy. Thyroid Normal. No meningeal signs. No neck mass noted. Cardiovascular: Normal heart rate and rhythm. Heart sound normal. No murmurs noted. Pulses normal throughout. Respiratory: No respiratory distress. Painless inspiration. Breath sounds normal. No wheezes/rales/rhonchi noted. Chest nontender. No accessory muscle usa ge noted or decreased air movement noted. Abdomen: Soft and nontender. Bowel sounds normal in all 4 quadrants. No distention noted. No organomegaly noted. No visible injury noted. : WNL Back: No costovertebral angle tenderness. Full range of motion noted. Skin: Skin warm and dry. Normal skin color. Normal skin turgor. No rashes/lesions/lacerations noted. Extremities: No lower extremity edema. Extremities exhibit normal range of motion. Extremities nontender. Neuro: Oriented X 3. No motor deficit. No sensory deficit. Reflexes normal. Results Reviewed Results Reviewed: - Labs: White blood cell count elevated at 17,000; glucose level elevated at 121 mg/dL; normal liver enzymes; normal urine analysis. This was last month at the emergency department on 03/2025 Coding Level of Care Code Est Pt Level 4 (06735) Est Pt Prev Care 18-39y(15958) Diagnoses Annual physical exam Z00.00 Gender dysphoria in adult F64.0 Other specified inflammation of vagina and vulva N76.89 Long-term current use of testosterone replacement therapy Z79.890 Obesity (BMI 35.0-39.9 without comorbidity) E66.9 ADHD F90.9 Autism F84.0 Depression F32.A Vitamin D deficiency E55.9 Additional Codes PHQ-9 - 48976 - PHQ-9 Billing: Yes ([id number]) RAYMUNDO-7 Assessment Billing - RAYMUNDO-7 Assessment Tool: RAYMUNDO-7 Assessment 87304 ([id number]) Assessment & Plan Assessment & Plan (1) Annual physical exam: Code(s): Z00.00 - Encounter for general adult medical examination without abnormal findings Category: Medical Plan: Normal annual physical exam today. (2) Gender dysphoria in adult: Code(s): F64.0 - Transsexualism Category: Medical Plan: The patient is undergoing testosterone therapy as part of gender transition, with monitoring of blood pressure and potential side effects discussed. Condition is chronic and stable continue to monitor. (3) Other specified inflammation of vagina and vulva: Code(s): N76.89 - Other specified inflammation of vagina and vulva Category: Medical Plan: The patient is undergoing testosterone therapy as part of gender transition, with monitoring of blood pressure and potential side effects discussed. Condition is chronic and stable continue to monitor. (4) Long-term current use of testosterone replacement therapy: Code(s): Z79.890 - Hormone replacement therapy Category: Medical Plan: The patient is undergoing testosterone therapy as part of gender transition, with monitoring of blood pressure and potential side effects discussed. Condition is chronic and stable continue to monitor. (5) Obesity (BMI 35.0-39.9 without comorbidity): Code(s): E66.9 - Obesity, unspecified Category: Medical Plan: The patient is actively working on weight management to meet BMI requirements for breast reduction surgery, with encouragement to continue weight loss efforts. Condition is chronic and stable continue to monitor. (6) ADHD: Code(s): F90.9 - Attention-deficit hyperactivity disorder, unspecified type Category: Medical Plan: The patient is followed by a therapist for ADHD, with no new management strategies discussed during this visit. Condition is chronic and stable continue to monitor. (7) Autism: Code(s): F84.0 - Autistic disorder Category: Medical Plan: The patient continues to be followed by a therapist for Autism Spectrum Disorder, with no new interventions discussed during this visit. Condition is chronic and stable will continue to monitor. (8) Depression: Code(s): F32.A - Depression, unspecified Category: Medical Plan: The patient is managed for depression with fluoxetine and therapy, with no changes to the current treatment plan discussed. Condition is chronic and stable will continue to monitor. (9) Vitamin D deficiency: Code(s): E55.9 - Vitamin D deficiency, unspecified Category: Medical Plan: The patient is aware of her vitamin D deficiency. Condition is chronic and stable will continue to monitor. Plan Plan Patient was informed and verbally consented to the use of an ambient scribe for clinic note documentation during this visit. 1. Autism Spectrum Disorder The patient continues to be followed by a therapist for Autism Spectrum Disorder, with no new interventions discussed during this visit. 2. Anxiety Disorder The patient is currently managed for anxiety with fluoxetine and therapy, with no changes to the current management plan discussed. 3. Attention-Deficit/Hyperactivity Disorder (Adhd) The patient is followed by a therapist for ADHD, with no new management strategies discussed during this visit. 4. Major Depressive Disorder The patient is managed for depression with fluoxetine and therapy, with no changes to the current treatment plan discussed. 5. Obesity The patient is actively working on weight management to meet BMI requirements for breast reduction surgery, with encouragement to continue weight loss efforts. 6. Vitamin D Deficiency The patient is aware of her vitamin D deficiency, with no specific management changes discussed during this visit. 7. Viral Infection (Recent) The recent viral infection has resolved, with a plan to repeat blood work to ensure normalization of the white blood cell count. 8. Elevated White Blood Cell Count The elevated white blood cell count is likely reactive to the recent viral infection, with a plan to repeat blood work to confirm resolution. 9. Elevated Glucose Level The elevated glucose level will be monitored, with a plan to repeat blood work to assess current levels. 10. Testosterone Therapy (For Gender Transition) The patient is undergoing testosterone therapy as part of gender transition, with monitoring of blood pressure and potential side effects discussed. During the visit, we discussed the patient's ongoing management for Autism Spectrum Disorder, Anxiety Disorder, ADHD, and Major Depressive Disorder, with no changes to the current treatment plans. We reviewed the recent viral infection and the need to repeat blood work to ensure normalization of the white blood cell count and glucose levels. The patient is undergoing testosterone therapy for gender transition, and we discussed monitoring blood pressure and potential side effects. We also addressed the patient's weight management goals for breast reduction surgery. Orders: Orders Complete Blood Count Auto Diff Today Z00.00 - Encounter for general adult medical examination without abnormal findings Hemoglobin A1c Today Z00.00 - Encounter for general adult medical examination without abnormal findings Vitamin B12 and Folate Today Z00.00 - Encounter for general adult medical examination without abnormal findings TSH reflex Free T4 Today Z00.00 - Encounter for general adult medical examination without abnormal findings Progesterone Today Z00.00 - Encounter for general adult medical examination without abnormal findings Estrogen Today Z00.00 - Encounter for general adult medical examination without abnormal findings Lutenizing Hormone Today Z00.00 - Encounter for general adult medical examination without abnormal findings Follicle Stimulating Hormone Today Z79.890 - Hormone replacement therapy UA CC w/rflx Micro + Cult Today N76.89 - Other specified inflammation of vagina and vulva C Reactive Protein Today Z00.00 - Encounter for general adult medical examination without abnormal findings Comprehensive [place]. Panel Fast Today Z00.00 - Encounter for general adult medical examination without abnormal findings Vitamin D 25-OH Total Today Z00.00 - Encounter for general adult medical examination without abnormal findings Magnesium Today Z00.00 - Encounter for general adult medical examination without abnormal findings Liver Panel Today Z00.00 - Encounter for general adult medical examination without abnormal findings Lipid Panel Today Z00.00 - Encounter for general adult medical examination without abnormal findings Testosterone, Total Today Z00.00 - Encounter for general adult medical examination without abnormal findings Prolactin Today Z00.00 - Encounter for general adult medical examination without abnormal findings Medications: New testosterone apply to max area of ONE upper arem and shoulder 1 packet transdermal DAILY Patient Instructions: - Continue current medications and therapy for mental health conditions. - Follow up with blood work to monitor white blood cell count and glucose levels. - Maintain weight management efforts to meet BMI requirements for surgery. - Monitor blood pressure and report any side effects from testosterone therapy. - Schedule a follow-up appointment in 4 to 6 months or sooner if needed.
[2025-05-11 14:52] VITALS: BP 130/78; PULSE 97; TEMP 36.4; O2SAT 97; BMI 36.5
--- OUTSIDE RECORDS SUMMARY | 2025-05-11 16:51 | XMS_ITS | Clinical Summary ---
Author Organization [facility] Address [address] [place] [address] [address] [place] [address] Care Team Providers Care Domestic Laundry Worker Name Role Phone Unavailable Primary Care Provider Unavailabl e Allergies No known active allergies Medications FLUoxetine (PROzac) 20 MG capsule TAKE 1 CAPSULE BY MOUTH EVERY DAY IN THE MORNING 02/03/2024 Active Active Problems No known active problems Social History Tobacco Use Types Packs/Day Years Used Date Smoking Tobacco: Never Smokeless Tobacco: Never Tobacco Cessation:Counseling Given: Not Answered Comments Unknown Sex and Gender Information Value Date Recorded Sex Assigned at Female 03/22/2024 3:21 PM EDT Legal Sex Female 9:54 AM EDT Gender Identity Female 03/22/2024 3:21 PM EDT Sexual Orientation Straight 03/22/2024 3: 21 PM EDT Last Filed Vital Signs Vital Sign Reading Time Taken Comments Blood Pressure 132/86 12/12/2024 1:56 PM EST Pulse - - Temperature - - Respiratory Rate - - Oxygen Saturation - - Inhaled Oxygen Concentration - - Weight - - Height - - Body Mass Index - - Plan of Treatment Upcoming Encounters Date Type Department Care Team (Late st Contact Info) Description 06/15/2025 1:00 PM EDT Office Visit [facility] [address] [place] [address] Consuelo Coreas [address] [place] [address] Health Maintenance Due Date Last Done Comments Depression Screening 1998 HIV Screening 1998 SDOH Screening 1998 Disability Screening 1998 Alcohol/Substance Use Screening 2010 Family Planning (PISQ) 2013 Hepatitis C Screening 2016 Hepatitis B Vaccines (1 of 3 - 19+ 3-dose series) 2017 Pap Smear 2019 COVID-19 Vaccine ( - 2023-2 5 season) 2024 Dental X-Ray: Bitewings 04/15/2025 04/14/2024 Dental Oral Exam 06/12/2025 12/12/2024, 04/14/2024 Dental Prophylaxis 06/12/2025 12/12/2024, 04/26/2024 Influenza Vaccine (Season Ended) 2025 12/10/2023 Tobacco Screening 12/12/2025 12/12/2024 Dental X-Ray: Full Mouth 04/15/2027 04/14/2024 DTaP/Tdap/Td Vaccines (2 - T d or Tdap) 04/23/2033 04/23/2023 Zoster Vaccines (1 of 2) 2048 RSV Patients and Patients Aged 60 years or older (1 - 1-dose 75+ series) 2073 HIB Vaccines Aged Out No longer eligi ble based on patient's age to complete this topic HPV Vaccines Aged Out No longer eligi ble based on patient's age to complete this topic Hepatitis A Vaccines Aged Out No long er eligible based on patient's age to complete this topic IPV Vaccines Aged Out No longer eligi ble based on patient's age to complete this topic Meningococcal B Vaccine Aged Out No l onger eligible based on patient's age to complete this topic Meningococcal Vaccine Aged Out No oriana rajni eligible based on patient's age to complete this topic Pneumococcal Vaccine: Pediatrics (0 to 5 Years) and At-Risk Patients (6 to 49) Years) Aged Out No longer eligible b ased on patient's age to complete this topic RSV under 20 months Aged Out No longe r eligible based on patient's age to complete this topic Rotavirus Vaccines Aged Out No longer eligible based on patient's age to complete this topic Procedures Procedure Name Priority Date/Time Associated Diagnosis Comments PROPHYLAXIS - ADULT Routine 12/12/2024 2 :00 PM EST Dental plaque Dental calculus Gingivitis PERIODIC ORAL EVALUATION - ESTABLISHED PATIENT Routine 12/12/2024 2:00 PM EST INTRAORAL - COMPLETE SERIES OF RADIOGRAPHIC IMAGES Routine 04/14/2024 1:30 PM EDT from Last 3 Months or Most Recently Relevant to Health Maintenance Insurance [facility]AL-[facility] MEDICAID STAND ADULT
== END 2025-05-11 15:26 | disposition home or self-care (01) ==
LOC: HO.HMCH 14:18
PROVIDERS: PCP Internal Medicine; Visit Provider Physician Assistant Medical
DX: Z00.00 Encounter for general adult medical examination without abnormal findings (principal); F90.9 Attention-deficit hyperactivity disorder, unspecified type; E66.9 Obesity, unspecified; Z68.36 Body mass index [BMI] 36.0-36.9, adult; N76.89 Other specified inflammation of vagina and vulva; F64.0 Transsexualism; Z79.890 Hormone replacement therapy; F84.0 Autistic disorder; F32.A Depression, unspecified; E55.9 Vitamin D deficiency, unspecified

== ENCOUNTER → 2025-05-11 14:17 | Outpatient (BNVA) | payer OTHER, SELFPAY | PROVIDERS: PCP Internal Medicine; Visit Provider Physician Assistant Medical | DX: Z00.00 Encounter for general adult medical examination without abnormal findings (principal); F84.0 Autistic disorder; F41.9 Anxiety disorder, unspecified; F90.9 Attention-deficit hyperactivity disorder, unspecified type; F32.9 Major depressive disorder, single episode, unspecified; E66.9 Obesity, unspecified; E55.9 Vitamin D deficiency, unspecified; F64.0 Transsexualism; N76.89 Other specified inflammation of vagina and vulva; Z79.890 Hormone replacement therapy | CPT/HCPCS: 96127; 99212; 99395 ==

== ENCOUNTER 2025-05-23 08:38 | Outpatient (REF) | payer OTHER, SELFPAY ==
--- OUTSIDE RECORDS SUMMARY | 2025-05-23 08:57 | XMS_ITS | Clinical Summary ---
Author Organization [facility] Address [address] [place] [address] [address] [place] [address] Care Team Providers Care Process Technician Name Role Phone Unavailable Primary Care Provider [...] Description 06/15/2025 1:00 PM EDT Office Visit [facility] [address] [place] [address] Consuelo Coreas [address] [place] [address] Health Maintenance Due Date Last [...] Years) and At-Risk Patients (6 to 49) Years Aged Out No longer eligible b ased [...] Most Recently Relevant to Health Maintenance Insurance [facility]AL-[facility] MEDICAID STAND ADULT
[2025-05-23 09:03] LABS: MANUAL DIFF FLAG NO
[2025-05-23 09:08] LABS: Basophils Absolute Auto 0.1 X10*3/uL (0.0-0.2); Basophils Percent Auto 0.6 % (0-2); Eosinophils Absolute Auto 0.1 X10*3/uL (0.0-0.4); Hemoglobin 15.8 g/dl (12.0-16.0); Imm Gran Abs Auto 0.02 X10*3/uL (0.00-0.03); Imm Gran Pct Auto 0.2 % (0.0-0.4); Lymphocytes Absolute Auto 2.6 X10*3/uL (1.2-4.9); Lymphocytes Percent Auto 29.3 % (20-40); Mean Corpuscular HGB Conc 31.6 g/dl (31.0-35.0); Mean Corpuscular Hemoglobin 27.3 pg (27.0-33.0); Mean Corpuscular Volume 86.5 fL (80.0-98.0); Mean Platelet Volume 12.1 fL (9.4-12.3); Monocytes Absolute Auto 0.6 X10*3/uL (0.1-1.2); Monocytes Percent Auto 6.5 % (2-11); Neutrophils Absolute Auto 5.5 x10*3/uL (2.0-8.3); Neutrophils Percent Auto 62.4 % (45-73); Platelet Count 178 X10*3/uL (160-400); Red Blood Count 5.78 X10*6/uL (4.20-5.50); Red Cell Distribution Width 15.5 % (11.0-16.0); White Blood Count 8.8 X10*3/uL (4.8-10.8)
[2025-05-23 09:16] LABS: Estimated Average Glucose 100 mg/dL; Hemoglobin A1C 129.0416 umol/L; Hemoglobin A1c % 5.1 % (<6.0)
[2025-05-23 09:39] LABS: Alanine Aminotransferase 17 U/L (0-31); Albumin Level 4.2 g/dL (3.5-5.0); Alkaline Phosphatase 63 U/L (39-117); Anion Gap 10 (12-20); Aspartate Amino Transferase 21 U/L (5-31); Bilirubin Direct 0.2 mg/dL (0.0-0.5); Bilirubin Total 0.4 mg/dL (0.0-1.0); Blood Urea Nitrogen 11 mg/dL (9-16); C Reactive Protein 2.33 mg/dL (< or = 0.50); Calcium 9.1 mg/dL (8.4-10.2); Carbon Dioxide 28 mmol/L (22-29); Chloride 109 mmol/L (96-108); Cholesterol 137 mg/dL (<200); Estimated Glomerular Filt Rate > 60; Glucose Fasting 96 mg/dL (60-99); HDL Cholesterol 31 mg/dL (>40); LDL Cholesterol Calculated 91 mg/dL (<100); Potassium 4.1 mmol/L (3.3-5.1); Sodium 143 mmol/L (135-145); Total Protein 7.1 g/dL (6.5-8.0); Triglycerides 75 mg/dL (<150)
[2025-05-23 09:56] LABS: TSH reflex Free T4 1.86 uIU/mL (0.32-4.0); Vitamin D 25-OH Total 12.6 ng/mL (>30)
[2025-05-23 10:05] LABS: Folate 8.8 ng/mL (> or = 4.0); Vitamin B12 370 pg/mL (200-900)
[2025-05-23 10:29] LABS: Appearance Urine Clear; Color Urine Dark Yellow; Glucose Urine UA Negative (Negative); Leukocyte Esterase Urine Negative (Negative); Nitrite Urine Negative (Negative); Specific Gravity - Urine >= 1.030 (1.005-1.025); Urine Blood Negative (Negative); Urine Ketones Trace mg/dL (Negative); Urine Protein Trace mg/dL (Neg-Trace)
[2025-05-24 13:34] LABS: Follicle Stimulating Hormone 3.2 mIU/mL; Lutenizing Hormone 1.8 mIU/mL; Prolactin 14.1 ng/mL
[2025-05-27 15:23] LABS: Testosterone, Total 921 ng/dL (2-45)
[2025-05-28 01:13] LABS: Estrogen 204 pg/mL
[2025-05-31 05:13] LABS: Progesterone <0.1 ng/mL
== END 2025-05-23 08:39 | disposition home or self-care (01) ==
LOC: HO.LAB 08:38
PROVIDERS: PCP Internal Medicine; Visit Provider Physician Assistant Medical
DX: Z00.00 Encounter for general adult medical examination without abnormal findings (principal); N76.89 Other specified inflammation of vagina and vulva; Z79.890 Hormone replacement therapy
CPT/HCPCS: 36415; 80053; 80061; 80076; 81003; 82248; 82306; 82607; 82672; 82746; 83001; 83002; 83036; 83735; 84144; 84146; 84403; 84443; 85025; 86140